=== PATIENT | female | born 1965 | race Caucasian/White ===

== ENCOUNTER 2016-10-14 16:49 | Inpatient (IN) | payer OTHER ==
[~2016-10-14] VITALS: Ht 170.2 cm; Wt 122.5 kg
[~2016-10-14 16:49] MED LIST: PREDNISONE50 MG PO; ZOFRAN4 M1 PO
--- NOTE | 2016-10-14 17:05 | ED GENERAL ADULT ---
History of Present Illness General Chief Complaint: Nausea, Vomiting, Diarrhea Stated Complaint: +N/V, HX OF DIABETES Source: patient Exam Limitations: poor historian Vital Signs & Intake/Output Vital Signs & Intake/Output Vital Signs Date Time Temp Pulse Resp B/P B/P Pulse O2 O2 Flow FiO2 Mean Ox Delivery Rate 10/14 1914 99.5 118 18 132/0 99 Room Air Room Air 10/14 1855 99.5 10/14 185 99.5 115 18 127/59 97 Room Air 10/14 1822 102.6 124 22 178/80 92 10/14 1700 104.8 130 22 188/98 92 10/14 1656 104.8 Allergies Coded Allergies: cephalexin (From KEFLEX) (THROAT CLOSES AND SWELLS 10/14/16) clindamycin (HIVES 10/14/16) Reconcile Medications Albuterol Sulfate (Proair Hfa) 90 MCG HFA.AER.AD 2 PUF INH Q6H PRN ASTHMA ( Reported) Amitriptyline HCl 75 MG TABLET 1 TAB PO QHS MIGRAINES (Reported) Budesonide/Formoterol Fumarate (Symbicort 80-4.5 Mcg Inhaler) 80 MCG-4.5 MCG/ ACTUATION HFA.AER.AD 2 PUF INH BID ASTHMA (Reported) Dulaglutide (Trulicity) 1.5 MG/0.5 ML PEN.INJCTR 1.5 MG SC QMON DM (Reported) Ergocalciferol (Vitamin D2) (Vitamin D2) 50,000 UNIT CAPSULE 1 CAP PO QWED SUPPLEMENT (Reported) Insulin Glargine,Hum.rec.anlog (Lantus Solostar) 100 UNIT/ML (3 ML) INSULN.PEN 60 UNITS SC QPM DM (Reported) Insulin Glargine,Hum.rec.anlog (Lantus Solostar) 100 UNIT/ML (3 ML) INSULN.PEN 50 U SC QAM DM (Reported) Insulin Lispro (Humalog Kwikpen U-100) 100 UNIT/ML INSULN.PEN DM (Reported) Metformin HCl 1,000 MG TABLET 1 TAB PO BID DM (Reported) Tramadol HCl 50 MG TABLET 1 TAB PO QPM PAIN (Reported) Triage Nurses Notes Reviewed? yes Onset: Abrupt Duration: day(s): Timing: recent history HPI: 10/14/16 5 pm 51-year-old female presents to the emergency department for 104 fever and altered mental status. According to the patient and her she was in her usual state of health until the past 48 hours. She thinks that she may have an infected urine. She was seen by Dr. Mancuso today and sent to the emergency department. She complains of epigastric abdominal pain and high fever. She denies headache cough or other complaints. The onset of the symptoms was abrupt , the duration was over the past 48 hours, the severity is significant as her symptoms required her to come to the emergency department for care. Past History Travel History Traveled to [place] past 21 day No Medical History Any Pertinent Medical History? see below for history Cardiovascular: hypertension, hyperlipidemia Respiratory: asthma Gastrointestinal: pancreatitis Endocrine: diabetes Surgical History Surgical History: cholecystectomy, Psychosocial History What is your primary language Swedish Family History Hx Contributory? No Review of Systems Review of Systems Constitutional: Reports: diaphoresis, fever, weakness. EENTM: Reports: no symptoms. Respiratory: Denies: cough. Cardiovascular: Denies: chest pain. GI: Reports: abdominal pain. Genitourinary: Reports: no symptoms. Musculoskeletal: Reports: no symptoms. Skin: Denies: rash. Neurological/Psychological: Denies: headache. Hematologic/Endocrine: Reports: no symptoms. Physical Exam Physical Exam General Appearance: awake, anxious, severe distress Head: atraumatic, normal appearance Eyes: Bilateral: normal appearance, PERRL, EOMI. Ears, Nose, Throat: normal pharynx, normal ENT inspection Neck: normal inspection, supple, full range of motion Respiratory: chest non-tender, no respiratory distress, wheezing Cardiovascular: tachycardia Peripheral Pulses: 4+ radial (R), 4+ radial (L) Gastrointestinal: soft, tenderness Back: decreased range of motion Extremities: normal capillary refill Neurologic/Psych: no motor/sensory deficits, awake, alert, oriented x 3 Skin: intact, normal color, diaphoresis Core Measures ACS in differential dx? No CVA/TIA Diagnosis: No Severe Sepsis Present: No Septic Shock Present: No Progress Differential Diagnoses I considered the following diagnoses in my evaluation of the patient: [Sepsis, hypothermia, pancreatitis, appendicitis, diverticulitis,] Plan of Care: Orders Procedure Date/time Status Heart Healthy Diet 10/15 B Active Patient Data 10/14 2104 Active ED Holding Orders 10/15 2039 Active Admit to inpatient 10/15 2039 Active Vital Signs 10/15 2039 Active Code Status 10/15 2039 Active LACTIC ACID 10/14 2008 Active MIXED VENOUS BLOOD GAS (GEN) 10/14 191 Active Intake & Output 10/14 185 Active Add-on Test (ER Only) 10/14 184 Active LIPASE 10/14 171 Complete AMYLASE 10/14 171 Complete CULTURE,URINE 10/14 170 Active BLOOD CULTURE 10/14 170 Active URINE DRUG SCREEN FOR ER ONLY 10/14 170 Complete URINALYSIS 10/14 170 Complete TROPONIN LEVEL 10/14 170 Complete LACTIC ACID 10/14 170 Complete COMPREHENSIVE METABOLIC PANEL 10/14 170 Complete CBC WITHOUT DIFFERENTIAL 10/14 1708 Complete ACETONE 10/14 170 Complete EKG 10/14 1704 Active FingerStick- Glucose 10/14 165 Active Current Medications Sig/Adam Start time Last Medication Dose Stop Time Status Admin Insulin Aspart 4 UNITS ONCE ONE 10/14 2114 UNVr (NovoLOG) 10/15 2115 Insulin Human Regular 10 UNITS ONCE ONE 10/14 2044 CAN (NovoLIN R) 10/14 2045 Sodium Chloride 1,000 ML BOLUS ONE 10/14 2044 AC (Normal Saline 0.9%) 10/15 2143 Sodium Chloride 1,000 ML BOLUS ONE 10/14 2044 AC (Normal Saline 0.9%) 10/15 2143 Sodium Chloride 1,000 ML ONCE ONE 10/14 1714 AC 10/14 (Normal Saline 0.9%) 10/14 2354 1748 Laboratory Tests 10/14/161: Lactic Acid Pending 10/14/16 1950: Urine Opiates Screen 1419.00, Methadone Screen 68, Barbiturate Screen < 60, Ur Phencyclidine Scrn < 6.00, Amphetamines Screen < 100, U Benzodiazepines Scrn < 85, Urine Cocaine Screen < 50, Urine Cannabis Screen < 5.00, Urine Color YEL, Urine Clarity HAZY H, Urine pH 6.0, Ur Specific [place] 1.020, Urine Protein 100 H, Urine Ketones NEG, Urine Nitrite POS H, Urine Bilirubin NEG, Urine Urobilinogen 0.2, Ur Leukocyte Esterase SMALL H, Ur Microscopic SEDIMENT EXAMINED, Urine RBC 1-3, Urine WBC > 75 H, Ur Epithelial Cells MOD H, Urine Bacteria MANY H, Urine Mucus RARE, Urine Hemoglobin MOD H, Urine Glucose >= 1000 H 10/14/16 1911: Bicarbonate Actual 20 L, Mixed VBG pH 7.42 H, Mixed VBG pCO2 32 L, Mixed VBG O2 Saturation 46 H, Carboxyhemoglobin 2.8, O2 Concentration % R/A, Phlebotomy Draw Site VENOUS 10/14/16 1716: Anion Gap 14, Estimated GFR > 60, BUN/Creatinine Ratio 25.7 H, Glucose 321 H, Lactic Acid 3.0 H, Calcium 10.2, Total Bilirubin 1.4 H, AST 27, ALT 51, Alkaline Phosphatase 105, Troponin I < 0.01, Total Protein 7.5, Albumin 4.2, Globulin 3.3, Albumin/Globulin Ratio 1.3, Amylase 36, Lipase 78, CBC w Diff NO MAN DIFF REQ, RBC 4.21, MCV 92.7, MCH 31.3 H, RDW 14.3, MPV 10.7 H, Gran % 91.7 H, Lymphocytes % 7.6 L, Monocytes % 0.5 L, Eosinophils % 0.1, Basophils % 0.1, Absolute Granulocytes 6.5, Absolute Lymphocytes 0.5 L, Absolute Monocytes 0 L, Absolute Eosinophils 0, Absolute Basophils 0, PUBS MCHC 33.8, Acetone Level NEGATIVE Microbiology 10/14 1949 URINE ROUT: Urine Culture - RECD 10/15 1719 BLOOD: Blood Culture - RECD 10/14 171 BLOOD: Blood Culture - RECD Initial ED EKG: sinus tachycardia Prior EKG: unchanged Departure Departure Disposition: STILL A PATIENT Condition: Stable Clinical Impression Primary Impression: Abdominal pain Secondary Impressions: Sepsis Referrals: VIVIANE CHAMORRO MD (PCP/Family) Departure Forms: Customer Survey General Discharge Information Comments 10/14/16 The patient was treated with IV fluids. She was placed on oxygen and a monitor. Ice packs were applied to her axilla. IV Tylenol and IV Toradol was given. IV morphine was given for pain. IV Avelox was ordered and she was pancultured. CT scan of the abdomen was ordered. Admission Note Spoke With: EDA RODRIGUEZ MD Documentation of Exam: Documentation of any treatments & extenuating circumstances including Concerns Regarding Discharge (functional status, medication knowledge or non-compliance, living conditions, etc.) that warrant an admission rather than observation: [The patient needs admission for IV antibiotics, IV fluids, repeat lactic acid level, ] ED Sepsis Exam Date of Focused Sepsis Exam: 10/14/16 Time of Focused Sepsis Exam: 2119 Sepsis Cardiac Exam: Regular Rate/Rhythm Sepsis Resp Exam: Ronchi Sepsis Cap Refill Exam: <2 Sec Sepsis Peripheral Pulse Exam: Normal Sepsis Peripheral Pulse Location: Radial Sepsis Skin Color Exam: Flushed Skin Temp/Moisture Exam: Hot/Diaphoretic Critical Care Note Critical Care Note Critical Care Time: 30-74 min
[2016-10-14 17:24] LABS: ABSOLUTE BASOPHIL COUNT 0 /CUMM (0.0-0.2); ABSOLUTE EOSINOPHIL COUNT 0 /CUMM (0.0-0.7); ABSOLUTE GRANULOCYTE CT 6.5 /CUMM (1.4-6.5); ABSOLUTE LYMPH COUNT 0.5 /CUMM (1.2-3.4); ABSOLUTE MONOCYTE COUNT 0 /CUMM (0.10-0.60); BASOPHIL % 0.1 % (0.0-2.0); EOSINOPHIL % 0.1 % (0-5); MEAN CORPUSCULAR HGB 31.3 PG (27.0-31.0); MEAN CORPUSCULAR HGB CONC 33.8 G/DL (33.0-37.0); MEAN CORPUSCULAR VOLUME 92.7 FL (81.0-99.0); MEAN PLATELET VOLUME 10.7 FL (7.4-10.4); PLATELET COUNT 125 /CUMM (130-400); RBC DISTRIBUTION WIDTH 14.3 % (11.5-14.5); RED BLOOD CELL CT 4.21 /CUMM (4.20-5.40); WHITE BLOOD CELL COUNT 7.1 /CUMM (4.8-10.8)
[2016-10-14 17:30] LABS: GRANULOCYTE % 91.7 % (42.2-75.2)
[2016-10-14] MEDS ORDERED: PROAIR HFA8.5 GM INH (17:59)
[2016-10-14] MEDS ORDERED: HUMALOG KW100 UNIT/1 SC (17:59)
[2016-10-14] MEDS ORDERED: TRULICITY1.5 MG/0.5 SC (17:59)
[2016-10-14] MEDS ORDERED: TRAMADOL HCL50 M1 PO (17:59)
[2016-10-14] MEDS ORDERED: LANTUS SOL100 UNIT/1 SC ×2 (18:00)
[2016-10-14] MEDS ORDERED: AMITRIPTYLINE H75 M2 PO (18:00)
[2016-10-14] MEDS ORDERED: SYMBICORT 80-10.2 GM INH (18:00)
[2016-10-14] MEDS ORDERED: VITAMIN D250000 UNIT PO (18:01)
[2016-10-14] MEDS ORDERED: METFORMIN HCL1000 M1 PO (18:01)
--- NOTE | 2016-10-14 18:20 | RADIOLOGY REPORT ---
EXAMINATION: XR PORTABLE CHEST CLINICAL INFORMATION: Fever. COMPARISON: None TECHNIQUE: Portable frontal view of the chest was obtained. 5:34 PM FINDINGS: No significant abnormality is noted involving the heart, lungs, mediastinum, bony thorax or soft tissues. IMPRESSION: No acute abnormality of chest.
--- NOTE | 2016-10-14 19:33 | CT SCAN REPORT ---
EXAMINATION: CT HEAD WITHOUT CONTRAST CLINICAL INFORMATION: Headache and hypertension. COMPARISON: None. TECHNIQUE: Contiguous axial imaging was performed from the skull base to vertex without intravenous administration of contrast. Images are degraded by artifact on some images. DLP: 614.27 mGy-cm FINDINGS: There is no evidence of acute intracranial hemorrhage or territorial infarction. No abnormal mass effect or midline shift is seen. Rios to white matter differentiation is well preserved. No extra-axial fluid collections are identified. The ventricles are normal in size. There are patchy areas of low attenuation in the periventricular and subcortical white matter which are most consistent with microvascular ischemic changes. The osseous structures and soft tissues are normal. There are sequelae of prior paranasal sinus surgery. There is a fluid level in the left maxillary sinus and there are small retention cysts in the maxillary sinuses bilaterally. IMPRESSION: 1. There are no acute bleeds or territorial infarcts. 2. There are changes consistent with chronic microvascular ischemic disease. 3. There are mild paranasal sinus changes, and there are sequelae of prior paranasal sinus surgery.
--- NOTE | 2016-10-14 20:01 | CT SCAN REPORT ---
EXAMINATION: CT ABDOMEN AND PELVIS WITHOUT CONTRAST CLINICAL INFORMATION: Abdominal pain COMPARISON: CT abdomen pelvis 10/11/2014 TECHNIQUE: Multidetector volumetric imaging was performed from the superior aspect of the liver through the pubic symphysis. Sagittal and coronal reformatted images were obtained on the technologist's workstation. DLP: 1416.14 mGy-cm FINDINGS: LUNG BASES: The visualized lung bases are unremarkable. LIVER, GALLBLADDER, AND BILIARY TREE: Diffuse low attenuation of liver parenchyma due to fatty change. There is mild hepatomegaly. Right lobe of liver measures 24 cm of length. No focal liver lesion. No intrahepatic bile duct dilatation Status post cholecystectomy. Surgical clips at gallbladder fossa. Extra hepatic CBD measures 7 mm in diameter. No calcified stone within the bile ducts. PANCREAS: Fatty atrophy of the pancreas. SPLEEN: Unremarkable. ADRENAL GLANDS: Unremarkable. KIDNEYS AND URETERS: There is edema in the perinephric fat around the left kidney and around the left ureter. This is asymmetric with the right kidney. There is no dilatation of the ureter. No renal or ureteral calculus. Etiology for the edema around the left kidney therefore indeterminate. Could consider pyelonephritis. Correlate with urinalysis. The right kidney and ureter are normal. BLADDER: Unremarkable. GASTROINTESTINAL TRACT: No acute change of the bowel. No bowel obstruction. No bowel wall thickening or edema. The appendix is normal. Small volume of scattered stool in the colon. ABDOMINAL WALL: No significant hernia is appreciated. LYMPH NODES: Normal. VASCULAR: Unremarkable. PELVIC VISCERA: Uterus is anteverted. No adnexal abnormality. OSSEOUS STRUCTURES: Endplate degenerative spurring of the thoracic and lumbar spine. Subchondral cystic changes of the acetabula bilaterally. IMPRESSION: Edema in the perinephric fat around the left kidney without hydronephrosis. No renal or ureteral calculus. Etiology for the edema around the kidney is not defined with this exam. Could consider an inflammatory infectious etiology, pyelonephritis. Correlate with urinalysis. In addition a postcontrast CAT scan of the abdomen and pelvis may be helpful.
--- NOTE | 2016-10-14 23:53 | History & Physical ---
SILVANO HENDRICKS 10/14/16 5882: General Information and HPI MD Statement: I have seen and personally examined RAOUL ERICKSON and documented this H&P. The patient is a 51 year old F who presented with a patient stated chief complaint of back ache x 24 hrs. Source of Information: patient Exam Limitations: no limitations History of Present Illness: Ms Erickson is a 51 yr old woman who was known to be in the usual state of health until one day ago. She has a past medical history of Type 2 DM ( uncontrolled), 50 pk yr smoking hisotry, HTN, HLD. She came in with a chief concern of left sided back pain x 1 day. As per the pt, she had left sided back pain, scale 10/10, no radiation, located in the left flank region, relieved upon taking anti-inflammatory meds. Also reported nausea, vomiting x 5 this am. Also assoicated w/ chills and rigors. Reported increased frequency, but no dysuria. No fever. No chest pain, shortness of breath, or palpitations. No pedal edema. Saw Dr Dickson (2001, but no diagnosis of COPD as per the pt). Also sees Dr. solorzano (flat bed operator). Allergies/Medications Allergies: Coded Allergies: cephalexin (From KEFLEX) (THROAT CLOSES AND SWELLS 10/14/16) clindamycin (HIVES 10/14/16) Home Med list Albuterol Sulfate (Proair Hfa) 90 MCG HFA.AER.AD 2 PUF INH Q6H PRN ASTHMA ( Reported) Amitriptyline HCl 75 MG TABLET 1 TAB PO QHS MIGRAINES (Reported) Budesonide/Formoterol Fumarate (Symbicort 80-4.5 Mcg Inhaler) 80 MCG-4.5 MCG/ ACTUATION HFA.AER.AD 2 PUF INH BID ASTHMA (Reported) Dulaglutide (Trulicity) 1.5 MG/0.5 ML PEN.INJCTR 1.5 MG SC QMON DM (Reported) Ergocalciferol (Vitamin D2) (Vitamin D2) 50,000 UNIT CAPSULE 1 CAP PO QWED SUPPLEMENT (Reported) Insulin Glargine,Hum.rec.anlog (Lantus Solostar) 100 UNIT/ML (3 ML) INSULN.PEN 60 UNITS SC QPM DM (Reported) Insulin Glargine,Hum.rec.anlog (Lantus Solostar) 100 UNIT/ML (3 ML) INSULN.PEN 50 U SC QAM DM (Reported) Insulin Lispro (Humalog Kwikpen U-100) 100 UNIT/ML INSULN.PEN DM (Reported) Metformin HCl 1,000 MG TABLET 1 TAB PO BID DM (Reported) Tramadol HCl 50 MG TABLET 1 TAB PO QPM PAIN (Reported) Past History Travel History Traveled to [place] past 21 day No Medical History Cardiovascular: hypertension, hyperlipidemia Respiratory: asthma Gastrointestinal: pancreatitis Endocrine: diabetes Surgical History Surgical History: cholecystectomy, Past Family/Social History Family History Relations & Conditions if any MOTHER (kidney disease). Psychosocial History Where do you live? Home Who Do You Live With? spouse Services at Home: None Primary Language: Pakistani Smoking Status: Current Everyday Smoker ETOH Use: denies use Functional Ability ADLs Independent: dressing, eating, toileting, bathing. Ambulation: independent, cane, walker IADLs Independent: shopping, housework, finances, food prep, telephone, transportation , medication admin. Review of Systems Review of Systems Constitutional: Reports: chills. Denies: diaphoresis, fever. EENTM: Denies: double vision. Cardiovascular: Denies: edema, orthopena, palpitations, peripheral edema, syncope. Respiratory: Denies: cough, hemoptysis, short of breath. GI: Denies: abdominal pain. Genitourinary: Reports: frequency. Musculoskeletal: Reports: back pain. Skin: Denies: cysts. Neurological/Psychological: Denies: anxiety, confusion. Hematologic/Endocrine: Denies: bruising, bleeding. Exam & Diagnostic Data Last 24 Hrs of Vital Signs/I&O Vital Signs Date Time Temp Pulse Resp B/P B/P Pulse O2 O2 Flow FiO2 Mean Ox Delivery Rate 10/15 0251 101.3 10/15 0242 96 Venti Mask 55% 10/15 0219 93 Venti Mask 55% 10/16 211 101.3 10/15 0148 101.3 10/144 100.4 99 16 102/50 95 Room Air 10/14 1915 99.5 118 18 132/0 99 Room Air Room Air 10/14 1855 99.5 10/14 1854 99.5 115 18 127/59 97 Room Air 10/14 1822 102.6 124 22 178/80 92 10/14 1700 104.8 130 22 188/98 92 10/14 1656 104.8 Intake & Output 10/15 0800 10/15 0000 10/14 1600 Intake Total 2000 Output Total Balance 1999 Intake, IV 1999 Physical Exam General Appearance Alert, Oriented X3, Cooperative, No Acute Distress Skin No Breakdown Skin Temp/Moisture Exam: Warm/Dry Sepsis Skin Exam (color): Normal for Ethnicity HEENT Atraumatic, PERRLA, EOMI, Mucous Membr. moist/pink Neck Supple, No JVD, No thryomegaly, +2 Carotid Pulse wo Bruit Lymphatic Axillary nl, Cervical nl Cardiovascular Regular Rate, Normal S1, Normal S2, No Murmurs Lungs Clear to Auscultation, Normal Air Movement Abdomen Normal Bowel Sounds, Soft, No Tenderness, Left costophrenic angle tenderness Neurological Normal Speech, Strength at 5/5 X4 Ext, Normal Tone, Sensation Intact, Cranial Nerves 3-12 NL, Reflexes 2+ Extremities No Clubbing, No Cyanosis, No Edema, Normal Pulses, No Tenderness/ Swelling, skin discoloration on the left lower limb Vascular Normal Pulses, Pulses Symmetrical Sepsis Peripheral Pulse Location: Dorsalis Pedis Sepsis Peripheral Pulse Exam: Normal Sepsis Cap Refill Exam: >2 sec Body Front and Back (Adult) 1) skin ulcer Last 24 Hrs of Labs/Scar: Laboratory Tests 10/15/16 0230: Troponin I 0.03, [id number] Pept 735 H 10/15/16 0200: pH 7.36, pCO2 35, pO2 67 L, HCO3 19 L, ABG O2 Sat (Measured) 88.0 L, P-50 ( Temp Corrected) Y, Carboxyhemoglobin 2.2, O2 Concentration % 55%, Temperature 101.3 H, O2 Delivery Method V/M, Phlebotomy Draw Site RIGHT RADIAL 10/15/16 0155: Troponin I Cancelled 10/14/16 2121: Lactic Acid Cancelled 10/14/16 2111: Lactic Acid 1.7 10/14/16 1950: Urine Opiates Screen 1419.00, Methadone Screen 68, Barbiturate Screen < 60, Ur Phencyclidine Scrn < 6.00, Amphetamines Screen < 100, U Benzodiazepines Scrn < 85, Urine Cocaine Screen < 50, Urine Cannabis Screen < 5.00, Urine Color YEL, Urine Clarity HAZY H, Urine pH 6.0, Ur Specific [place] 1.020, Urine Protein 100 H, Urine Ketones NEG, Urine Nitrite POS H, Urine Bilirubin NEG, Urine Urobilinogen 0.2, Ur Leukocyte Esterase SMALL H, Ur Microscopic SEDIMENT EXAMINED, Urine RBC 1-3, Urine WBC > 75 H, Ur Epithelial Cells MOD H, Urine Bacteria MANY H, Urine Mucus RARE, Urine Hemoglobin MOD H, Urine Glucose >= 1000 H 10/14/16 1911: Bicarbonate Actual 20 L, Mixed VBG pH 7.42 H, Mixed VBG pCO2 32 L, Mixed VBG O2 Saturation 46 H, Carboxyhemoglobin 2.8, O2 Concentration % R/A, Phlebotomy Draw Site VENOUS 10/14/16 171: Anion Gap 14, Estimated GFR > 60, BUN/Creatinine Ratio 25.7 H, Glucose 321 H, Hemoglobin A1c Pending, Lactic Acid 3.0 H, Calcium 10.2, Total Bilirubin 1.4 H , AST 27, ALT 51, Alkaline Phosphatase 105, Troponin I < 0.01, Total Protein 7.5 , Albumin 4.2, Globulin 3.3, Albumin/Globulin Ratio 1.3, Amylase 36, Lipase 78, CBC w Diff NO MAN DIFF REQ, RBC 4.21, MCV 92.7, MCH 31.3 H, RDW 14.3, MPV 10.7 H, Gran % 91.7 H, Lymphocytes % 7.6 L, Monocytes % 0.5 L, Eosinophils % 0.1, Basophils % 0.1, Absolute Granulocytes 6.5, Absolute Lymphocytes 0.5 L, Absolute Monocytes 0 L, Absolute Eosinophils 0, Absolute Basophils 0, PUBS MCHC 33.8, Acetone Level NEGATIVE Microbiology 10/14 1949 URINE ROUT: Urine Culture - RECD 10/15 1719 BLOOD: Blood Culture - RECD 10/14 171 BLOOD: Blood Culture - RECD Diagnostic Data EKG Results No EKG was done at the time of admission. CXR Results Did not reveal any acute abnormality. Other Results CT head-did not reveal any acute abnormality. Assessment/Plan Assessment: She is a middle-aged woman with a past history of uncontrolled diabetes, hypertension, active smoker and is being evaluated for sudden onset of left- sided lower back pain 1 day, associated with chills and rigors, vomiting. At the time of admission, vitals-temperature 104.8, pulse rate 130, respiratory rate 18, blood pressure 188/98 (dropped to SBP 102-118 consistently while the patient was in the ED), pulse ox-95% on room air. Lab findings revealed WBC 7.1 (91.7% granulocytes), low platelet count 125-likely due to ? Sepsis (baseline 175-231K), hemoglobin 13.2, electrolytes-sodium 135, potassium 4.9, bicarbonate 22, BUN 18 (slightly low), serum creatinine 0.7, blood glucose 321 (elevated). Lactic acid trended down to 3.0--> 1.7. Liver function tests-total bilirubin 1.4( slightly elevated), AST 27, ALT 51, alkaline phosphatase 105. Urinalysis revealed pyuria and glycosuria. Radiological findings-CT abdomen revealed perinephric stranding and edema around the kidney suggestive of pyelonephritis. CT head-negative for any acute pathology. Differential diagnosis: #1 pyelonephritis #2 perinephric abscess Below is the problem list and plan: #1 back pain-likely pyelonephritis. Intravenous moxifloxacin was administered in the ED. Change to intravenous ciprofloxacin to cover for GNR for pyelonephritis. The patient is allergic to Keflex, and reported perioral edema. CAT scan was done without IV contrast, which would limit evaluation of any perinephric abscess. Considering uncontrolled diabetes, polymicrobial infection is highly likely. Blood cultures revealed anaerobic gram-negative rods-likely Prevotella (in speculation). IV antibiotics-metronidazole was added to the regimen. Other sources of infection could not be found-oral cavity and vaginal. Sepsis of urologic origin-lactate trended down. Trend WBC count. #2 respiratory decompensation-likely because of tachycardia secondary to sepsis. Currently on 50% Ventimask. Continue to monitor closely, and transfer the patient to ICU. Repeat cxr revealed atelectesis vs pneumonia. Infection is unlikely. PE was considered in the differential, since the pt was tachycardic, but having two seperate etiologies such as pyelonephritis and PE(no other risk factor) is unlikely. #3 uncontrolled diabetes-check HbA1c. NovoLog sliding scale. Continue long- acting insulin. #4. Thrombocytopenia-likely because of sepsis. Continue to monitor closely. DIC in the differential. #5 DVT prophylaxis-heparin subcutaneous. Discontinue there is any decrease in platelet count. As Ranked By This Provider Problem List: 1. Sepsis 2. Abdominal pain Core Measures/Miscellaneous Acute Coronary Syndrome ACS Diagnosis: No Cerebrovascular Accident CVA/TIA Diagnosis: No Congestive Heart Failure CHF Diagnosis: No Venous Thromboembolism VTE Risk Factors: Acute medical illness, Age > 40 No [facility] [place] VTE prophylaxis d/t: No contraindications No VTE Pharm Prophylaxis d/t: No contraindications VTE Diagnosis: No VTE Type: NONE VTE Confirmed by (Test): NONE Severe Sepsis Severe Sepsis Present: No BC x2: Yes Lactic Acid x2: Yes IV ABX Broad Spectrum: Yes NS/LR Started: Yes Septic Shock Septic Shock Present: No Miscellaneous Documentation Attending Case Discussed With: EDA RODRIGUEZ MD Primary Care Physician: VIVIANE CHAMORRO MD Patient sees these Specialists Dr Solorzano Level of Patient Care: General Medicine NELLY HERNANDEZ MD,[facility] 10/15/16 0243: Resident Review Statement Resident Statement: examined this patient, discussed with help desk internship, agreed with help desk internship, reviewed EMR data (avail) Other Findings: 51-year-old female with past medical history significant for insulin-dependent diabetes mellitus, history of migraines, current smoker, ? diagnosis of COPD, obstructive sleep apnea on CPAP came to emergency department with chief complaint left flank pain, chills, shaking fever and vomiting. Patient took Advil without relief at midnight yesterday. She also noticed her urine was more cloudy today. Few days ago patient also noticed increased frequency of urination but denied any dysuria pain or urination burning with urination, chest pain diarrhea abdominal pain. Vitals in emergency department patient afebrile with a MAXIMUM TEMPERATURE of 104.8, tachycardia 120 to 130s, No tachypnea, systolic blood pressure ranging from 120 to 180s and diastolic 60 to 80s, oxygen saturation initially in emergency department 92% on room air. On examination patient was alert and oriented to time person place, and mild distress lying in the bed. Pertinent examination included positive renal punch on the left side, no abdominal tenderness, S1 and S2 audible without any murmurs , overall clear lungs with decreased air entry at the bases, grossly intact neurological examination. No leukocytosis, no anemia, mild hyponatremia, platelets of 125, and imaging showed Edema in the perinephric fat around the left kidney without hydronephrosis. No renal or ureteral calculus. Etiology for the edema around the kidney is not defined with this exam. Could consider an inflammatory infectious etiology, pyelonephritis. Patient received 4 L of normal saline in emergency department an IV moxifloxacin because patient is allergy to cephalosporins and gets angioedema from them. Patient was admitted on general medicine floor for the management of following problems Sepsis secondary to urinary tract infection Patient meets criteria for sepsis given her high temperature and heart rate of 100, along with suspected urinary tract infection. Patient received IV moxifloxacin along with 4 L of normal saline in emergency department. We will obtain urine culture and blood cultures to rule out bacteremia. We switched antibiotics to IV ciprofloxacin for better penetration. We will continue with IV fluids. We also have high degree of suspicion for renal abscess versus pyelonephritis if patient is not improved with IV antibiotics we will also consider urology consult. Patient's blood pressure came up to be positive for gram-negative rods in anaerobic bottles and therefore for broader coverage he also started Flagyl. Patient also had a rapid response as she got more short of breath. In order to evaluate for the cause of short of breath or chest x-ray, ABG, troponin and proBNP because patient was tachypneic and tachycardic. Patient did not significantly improve after respiratory treatment and after discussing with the attending decision was made to transfer the patient to ICU for better monitoring. Acute hypoxemic respiratory failure in the setting of COPD and SEDA Patient does not follow up with any marketing programs specialist on a regular basis for the treatment of COPD or SEDA. Patient had pulmonary function tests and saw Dr. Damon once in 2001. Our differentials for acute hypoxemic respiratory failure included possible volume overload versus ARDS versus low probability for PE. Will obtain pertinent labs and imaging and transfer the patient to the unit for close monitoring. Patient will need sleep study as an outpatient. History of diabetes mellitus on insulin Continue with Accu-Cheks, insulin sliding scale and long-acting insulin Patient is full code Patient is on pain pathway Patient is on heparin for DVT prophylaxis Patient is on diabetic diet EDA RODRIGUEZ 10/15/16 0357: Attending MD Review Statement Attending Statement Attending MD Statement: examined this patient, discuss w/resident/PA/[employer], agreed w/resident/PA/[employer], discussed with family, reviewed EMR data (avail), reviewed images, amended to note Attending Assessment/Plan: CC : Left flank pain, fever, vomiting PMH: DM, HLD, current smoker, asthma/COPD, S/P cholecystectomy Patient came to ER with fever, chills, left flank pain, vomiting 5 times. Patient states that fever and chills started yesterday along with left flank pain. Pain is nonradiating, not relieved by multiple pain medications over-the- counter. Today patient had 5 episodes of vomiting, nonbilious, nonbloody. Approximately 1 week back patient noticed increased frequency in urination for day with some tingly sensation but currently denies any such frequency, dysuria, burning in urination. Does not complain diarrhea, chest pain, abdominal pain, loss of consciousness, palpitations. According to family patient's diabetes is poorly controlled. Vitals: Tmax 104.8, HR 1:30, RR 22, blood pressure 178/80, saturating well on room air On exam: A O 3, cooperative, mild distress, neck supple, JVD normal, no lymphadenopathy, mucosa extremely dry, no focal neurological deficit, trace pedal edema, no obvious skin rashes or inflammation CVS: S1-S2, RRR. RS: Clear to auscultate bilaterally. Abdomen: Soft, NT, ND, bowel sounds present. Left- sided CVA tenderness present Labs: WBC 7.1, neutrophils 91%, sodium 135, bicarbonate 22, anion gap 18, BUN 18 , glucose 321, lactate 3.0, total bilirubin 1.4, AST 27, ALT 51 UA positive for nitrites and leukocyte esterase CT head and chest x-ray 1. There are no acute bleeds or territorial infarcts. 2. There are changes consistent with chronic microvascular ischemic disease. 3. There are mild paranasal sinus changes, and there are sequelae of prior paranasal sinus surgery. 4. No acute abnormality of chest. CT abdomen and pelvis without IV contrast Edema in the perinephric fat around the left kidney without hydronephrosis. No renal or ureteral calculus. Etiology for the edema around the kidney is not defined with this exam. Could consider an inflammatory infectious etiology, pyelonephritis. Correlate with urinalysis. In addition a postcontrast CAT scan of the abdomen and pelvis may be helpful. A and P 51-year-old female with past medical history significant for diabetes, asthma/ COPD, current smoker presented in ER for 1 day history of fever and chills and left flank pain. Patient had 5 episodes of vomiting today of note patient had one day history of increased frequency and tingly sensation in urine that was one week back. Patient had high-grade fever upon arrival, had obvious CVA tenderness on left side CT abdomen confirms the finding for pyelonephritis. Patient does not have significant leukocytosis but has left shift. Her lactic acid was 3, but she was hemodynamically stable throughout. UA positive for UTI. Patient was extremely dehydrated in ER and was resuscitated with 4 L normal saline and received moxifloxacin. + Left pyelonephritis + Sepsis + History of diabetes, asthma/COPD - Admit to general medicine - Continue IV hydration - Trend lactate - Urine culture, blood culture - Continue ciprofloxacin - Adequate pain control, when necessary Tylenol for fever - Repeat CBC, BMP, LFT in a.m. - Continue sliding scale insulin for diabetes - When necessary nebulization for asthma/COPD - DVT prophylaxis Note: After 3 AM in morning I received a page from lab that patient is growing gram-negative rods in one of the anaerobic bottles. Suggest to add Flagyl to Cipro. Also patient persistently spiking fever overnight. If worsening leukocytosis or persistent fever for 24 to 48-hour consider CT abdomen with IV contrast.
--- NOTE | 2016-10-15 02:37 | RADIOLOGY REPORT ---
EXAMINATION: XR PORTABLE CHEST CLINICAL INFORMATION: Acute hypoxic respiratory failure COMPARISON: 10/14/2016 TECHNIQUE: Portable frontal view of the chest was obtained. FINDINGS: Cardiac lead overlies the chest. The lungs are well expanded. Increased opacity at the right lung base. No pneumothorax. No edema. The cardiomediastinal silhouette is within normal limits. No acute osseous abnormality. IMPRESSION: Increased right basilar opacity may represent atelectasis or pneumonia.
--- NOTE | 2016-10-15 03:23 | Event Note ---
Event Note Event Note: Rapid response was called around 2 AM, when the pt was found to be acutely short of breath. She was febrile, T 101.3 and MS 130, BP 161/58, RR 25, O2 sat 89% RA- -> 93% (ventimask 50pc). On examination, she was found to be in acute distress. Lung sounds- rhonchi. No abnormal heart sounds. No JVD. Acute decompensation of respiratory status and could not be found. Since the patient was found to be tachycardic, and received over 4 L of fluid-possible volume overload state was considered. However radiological finding-chest x-ray did not reveal any increasing vascular congestion or any other findings suggestive of fluid overload. Cardiac enzyme-troponin I, proBNP negative. D- dimer was ordered, however low probability considering the admission for primary diagnosis of pyelonephritis to the hospital. Placed the patient on 50% Ventimask. Patient has a smoking history, and a formal diagnosis of COPD was never made. An acute decompensation, in this case is unclear.
--- NOTE | 2016-10-15 03:58 | Admission Certification ---
Admission Certification Certification Statement - As attending physician, I certify that at the time of - admission, based on clinical presentation, severity of - symptoms, need for further diagnostic testing and - therapeutic interventions, and risk of adverse outcomes - without in-hospital treatment, in my clinical assessment, - this patient requires an acute hospital stay for a minimum - of two nights or longer. I have also considered psychsocial - factors such as support system, advanced age, financial - issues, cognitive issues, and failed out-patient treatments, - past re-admission history, safety of patient, and lack of - compliance as applicable. Specific rationale supporting this admission is: Left-sided pyelonephritis
[2016-10-15 04:03] VITALS: BP 107/44
[2016-10-15 04:32] LABS: ABSOLUTE BASOPHIL COUNT 0 /CUMM (0.0-0.2); ABSOLUTE EOSINOPHIL COUNT 0 /CUMM (0.0-0.7); ABSOLUTE GRANULOCYTE CT 10.6 /CUMM (1.4-6.5); ABSOLUTE LYMPH COUNT 0.5 /CUMM (1.2-3.4); ABSOLUTE MONOCYTE COUNT 0.4 /CUMM (0.10-0.60); BASOPHIL % 0.2 % (0.0-2.0); EOSINOPHIL % 0.2 % (0-5); GRANULOCYTE % 91.7 % (42.2-75.2); MEAN CORPUSCULAR HGB 31.3 PG (27.0-31.0); MEAN CORPUSCULAR HGB CONC 33.8 G/DL (33.0-37.0); MEAN CORPUSCULAR VOLUME 92.4 FL (81.0-99.0); MEAN PLATELET VOLUME 10.7 FL (7.4-10.4); PLATELET COUNT 124 /CUMM (130-400); RBC DISTRIBUTION WIDTH 14.2 % (11.5-14.5)
[2016-10-15 04:36] LABS: HEMATOCRIT 33.3 % (37-47); WHITE BLOOD CELL COUNT 11.5 /CUMM (4.8-10.8)
--- NOTE | 2016-10-15 07:10 | Cons- CRCU ---
VALENTIN VALENZUELA,[facility] 10/15/16 0709: General Information and HPI Consulting Request Date of Consult: 10/15/16 Requested By: Medical team History of Present Illness: Ms Erickson is 51 year old female with past medical history significant for type 2 DM (uncontrolled), 50 pk yr smoking hisotry, HTN, HLD presented with chief complaint of left sided back pain x 1 day. Patient reported left sided back pain, scale 10/10, no radiation, located in the left flank region, relieved upon taking anti-inflammatory meds associated with nausea, vomiting x 5 this am. Also assoicated w/ chills and rigors. Reported increased frequency, but no dysuria. No fever. No chest pain, shortness of breath, or palpitations. No pedal edema. Patient was initially admitted to general medical floor, transferred to ICU after she had acute respiratory distress. Today 10/15, patient was seen and examined, lying in bed, in mild acute distress, reported being fatigued, denied chest pain, palpitation. Allergies/Medications Allergies: Coded Allergies: cephalexin (From KEFLEX) (THROAT CLOSES AND SWELLS 10/14/16) clindamycin (HIVES 10/14/16) Home Med List: Albuterol Sulfate (Proair Hfa) 90 MCG HFA.AER.AD 2 PUF INH Q6H PRN ASTHMA ( Reported) Amitriptyline HCl 75 MG TABLET 1 TAB PO QHS MIGRAINES (Reported) Budesonide/Formoterol Fumarate (Symbicort 80-4.5 Mcg Inhaler) 80 MCG-4.5 MCG/ ACTUATION HFA.AER.AD 2 PUF INH BID ASTHMA (Reported) Dulaglutide (Trulicity) 1.5 MG/0.5 ML PEN.INJCTR 1.5 MG SC QMON DM (Reported) Ergocalciferol (Vitamin D2) (Vitamin D2) 50,000 UNIT CAPSULE 1 CAP PO QWED SUPPLEMENT (Reported) Insulin Glargine,Hum.rec.anlog (Lantus Solostar) 100 UNIT/ML (3 ML) INSULN.PEN 60 UNITS SC QPM DM (Reported) Insulin Glargine,Hum.rec.anlog (Lantus Solostar) 100 UNIT/ML (3 ML) INSULN.PEN 50 U SC QAM DM (Reported) Insulin Lispro (Humalog Kwikpen U-100) 100 UNIT/ML INSULN.PEN DM (Reported) Metformin HCl 1,000 MG TABLET 1 TAB PO BID DM (Reported) Tramadol HCl 50 MG TABLET 1 TAB PO QPM PAIN (Reported) Review of Systems Review of Systems Constitutional: Denies: chills, fever. EENTM: Denies: blurred vision. Cardiovascular: Denies: chest pain, palpitations. Respiratory: Reports: cough, short of breath. GI: Denies: abdominal pain, diarrhea. Genitourinary: Denies: discharge, dysuria. Musculoskeletal: Denies: back pain, joint pain. 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 Psychosocial History Where Do You Live? Home Who Do You Live With? spouse Services at Home: None Primary Language: Tuvaluan Smoking Status: Current Everyday Smoker ETOH Use: denies use Functional Ability ADLs Independent: dressing, eating, toileting, bathing. Ambulation: independent, cane, walker IADLs Independent: shopping, housework, finances, food prep, telephone, transportation , medication admin. Exam & Diagnostic Data Last 24 Hrs of Vital Signs/I&O Vital Signs Date Time Temp Pulse Resp B/P B/P Pulse O2 O2 Flow FiO2 Mean Ox Delivery Rate 10/15 1600 97 Nasal 4.0L Cannula 10/15 1600 98.0 94 18 110/60 96 Nasal 4.0L Cannula 10/15 1428 Nasal 4.0L Cannula 10/15 1200 92 Nasal 6.0L Cannula 10/15 0913 103 10/15 0800 94 Venti Mask 55% 10/15 0800 98.3 108 20 128/54 97 Venti Mask 55% 10/15 0442 94 Venti Mask 10/15 0403 98.8 109 20 107/44 97 Venti Mask 10/15 0251 101.3 10/15 0242 96 Venti Mask 55% 10/15 0219 93 Venti Mask 55% 10/15 0212 101.3 10/15 0148 101.3 10/144 100.4 99 16 102/50 95 Room Air 10/14 1915 99.5 118 18 132/0 99 Room Air Room Air 10/14 1855 99.5 10/14 185 99.5 115 18 127/59 97 Room Air 10/14 1822 102.6 124 22 178/80 92 Intake & Output 10/15 1600 10/15 0800 10/15 0000 Intake Total 7785 807 1825 Output Total 400 400 Balance 2839 441 5286 Intake, IV 4093 898 7836 Intake, Oral 400 320 Output, Urine 400 400 Patient 122.47 kg Weight Weight Reported by Patient Measurement Method Physical Exam General Appearance: alert, moderate distress Head: atraumatic, normal appearance Eyes: Bilateral: normal appearance, PERRL, EOMI. Ears, Nose, Throat: normal pharynx, normal ENT inspection Neck: normal inspection, supple, full range of motion Respiratory: decreased breath sounds, wheezing Cardiovascular: regular rate/rhythm Gastrointestinal: normal bowel sounds, soft, non-tender Extremities: normal inspection, normal capillary refill, normal range of motion, no edema Last 48 Hrs of Labs/Scar: Laboratory Tests 10/15/16 1205: pH 7.39, pCO2 36, pO2 88, HCO3 21, ABG O2 Sat (Measured) 96.0, P-50 (Temp Corrected) N, Carboxyhemoglobin 0.4 L, O2 Concentration % 5LPM, O2 Delivery Method NC, Phlebotomy Draw Site RIGHT RADIAL 10/15/16 1101: Anion Gap 8, Estimated GFR > 60, Glucose 214 H, Calcium 8.7, Phosphorus 2.9, Magnesium 1.3 L, Total Bilirubin 0.9, AST 28, ALT 49, Albumin 3.0 L, PT 13.9 H, INR 1.33 H, CBC w Diff NO MAN DIFF REQ, RBC 3.47 L, MCV 92.8, MCH 31.0, RDW 14.6 H, MPV 11.1 H, Gran % 90.1 H, Lymphocytes % 5.9 L, Monocytes % 3.6, Eosinophils % 0.2, Basophils % 0.2, Absolute Granulocytes 10.7 H, Absolute Lymphocytes 0.7 L, Absolute Monocytes 0.4, Absolute Eosinophils 0, Absolute Basophils 0, PUBS MCHC 33.4 10/15/16 0530: Lactic Acid 1.3 10/15/16 0425: pH 7.30 *L, pCO2 45, pO2 99, HCO3 22, ABG O2 Sat (Measured) 96.0, P-50 (Temp Corrected) Y, Carboxyhemoglobin 0.6 L, O2 Concentration % 55%, Temperature 98.8 , O2 Delivery Method V/M, Phlebotomy Draw Site RIGHT RADIAL 10/15/16 0410: Anion Gap 9, Estimated GFR > 60, BUN/Creatinine Ratio 27.1 H, D-Dimer High Sensitivty 705 H, CBC w Diff MAN DIFF ORDERED, RBC 3.60 L, MCV 92.4, MCH 31.3 H, RDW 14.2, MPV 10.7 H, Gran % 91.7 H, Lymphocytes % 4.2 L, Monocytes % 3.7, Eosinophils % 0.2, Basophils % 0.2, Absolute Granulocytes 10.6 H, Segmented Neutrophils 88 H, Band Neutrophils 6 H, Absolute Lymphocytes 0.5 L, Lymphocytes 4 L, Monocytes 2, Absolute Monocytes 0.4, Absolute Eosinophils 0, Absolute Basophils 0, Platelet Estimate ADEQUATE, Polychromasia 1+, Ovalocytes FEW, PUBS MCHC 33.8, Fld Total RBCs Counted 100 10/15/16 0230: Troponin I 0.03, Zun-X-Asqaznwcskz Pept 735 H 10/15/16 0200: pH 7.36, pCO2 35, pO2 67 L, HCO3 19 L, ABG O2 Sat (Measured) 88.0 L, P-50 ( Temp Corrected) Y, Carboxyhemoglobin 2.2, O2 Concentration % 55%, Temperature 101.3 H, O2 Delivery Method V/M, Phlebotomy Draw Site RIGHT RADIAL 10/15/16 0155: Troponin I Cancelled 10/14/16 2121: Lactic Acid Cancelled 10/14/16 2111: Lactic Acid 1.7 10/14/16 1950: Urine Opiates Screen 1419.00, Methadone Screen 68, Barbiturate Screen < 60, Ur Phencyclidine Scrn < 6.00, Amphetamines Screen < 100, U Benzodiazepines Scrn < 85, Urine Cocaine Screen < 50, Urine Cannabis Screen < 5.00, Urine Color YEL, Urine Clarity HAZY H, Urine pH 6.0, Ur Specific [place] 1.020, Urine Protein 100 H, Urine Ketones NEG, Urine Nitrite POS H, Urine Bilirubin NEG, Urine Urobilinogen 0.2, Ur Leukocyte Esterase SMALL H, Ur Microscopic SEDIMENT EXAMINED, Urine RBC 1-3, Urine WBC > 75 H, Ur Epithelial Cells MOD H, Urine Bacteria MANY H, Urine Mucus RARE, Urine Hemoglobin MOD H, Urine Glucose >= 1000 H 10/14/16 1911: Bicarbonate Actual 20 L, Mixed VBG pH 7.42 H, Mixed VBG pCO2 32 L, Mixed VBG O2 Saturation 46 H, Carboxyhemoglobin 2.8, O2 Concentration % R/A, Phlebotomy Draw Site VENOUS 10/14/16 1716: Anion Gap 14, Estimated GFR > 60, BUN/Creatinine Ratio 25.7 H, Glucose 321 H, Hemoglobin A1c 9.2 H, Lactic Acid 3.0 H, Calcium 10.2, Total Bilirubin 1.4 H, AST 27, ALT 51, Alkaline Phosphatase 105, Troponin I < 0.01, Total Protein 7.5, Albumin 4.2, Globulin 3.3, Albumin/Globulin Ratio 1.3, Amylase 36, Lipase 78, CBC w Diff NO MAN DIFF REQ, RBC 4.21, MCV 92.7, MCH 31.3 H, RDW 14.3, MPV 10.7 H, Gran % 91.7 H, Lymphocytes % 7.6 L, Monocytes % 0.5 L, Eosinophils % 0.1, Basophils % 0.1, Absolute Granulocytes 6.5, Absolute Lymphocytes 0.5 L, Absolute Monocytes 0 L, Absolute Eosinophils 0, Absolute Basophils 0, PUBS MCHC 33.8, Acetone Level NEGATIVE Microbiology 10/15 1500 URINE ROUT: Legionella Antigen - COMP 10/15 1500 URINE ROUT: Streptococcus pneumoniae Antigen (M - COMP Assessment/Plan Impression/Plan: Ms Erickson is 51 year old female with past medical history significant for type 2 DM (uncontrolled), 50 pk yr smoking hisotry, HTN, HLD presented with chief complaint of left sided back pain x 1 day. Problem list #Left pyelonephritis #Sepsis #History of diabetes #Acute hypoxemic respiratory failure, likely secondary to aspiration pneumonia versus pneumonitis #COPD #SEDA on chronic CPAP #Hypertension and hyperlipidemia Plan #ID -Urine and blood culture positive for gram-negative rods -ID consultation was obtained, thanks for consultation -Continue ciprofloxacin 500 mg by mouth every 12 -Discontinue Flagyl -If patient deteriorates would add Gentamicin 180 mg loading dose followed by 100 mg IV every 8 hours -Follow culture sensitivity -Monitor vitals and CBC -CT scan abdomen and pelvis IMPRESSION: Edema in the perinephric fat around the left kidney without hydronephrosis. No renal or ureteral calculus. Etiology for the edema around the kidney is not defined with this exam. Could consider an inflammatory infectious etiology, pyelonephritis. Correlate with urinalysis. In addition a postcontrast CAT scan of the abdomen and pelvis may be helpful. Respiratory -Acute hypoxic respiratory failure, possible aspiration pneumonia -Start BiPAP 12/4, RR of 14 and obtain ABG after 1 hour -Aspiration precautions -Oxygen maintain saturations greater than 92%. -TRC and nebs -Avoid narcotics -Replete electroytes GI -IV Zofran for any nausea or evidence of vomiting Metabolic -Poor controlled DM -Endocrine consultation was obtained -Levemir 40 units twice a day -NovoLog sliding scale Neurology -Continue amitriptyline at bedtime 75 mg DVT prophylaxis heparin subcutaneous Code full Diet CC3 Consultation ID, endocrine Consult Acknowledgment - Thank you for your consult request. TOBY VALENZUELA,[facility] 10/15/16 0758: Assessment/Plan Other Findings/Comments: I have personally seen and examined the patient and agree with the assessment and plan as detailed above. Briefly, the patient is a 51-year-old female with a history of uncontrolled diabetes, obstructive lung disease, ongoing tobacco use disorder (50 pack years of smoking), SEDA on CPAP, hypertension, and hyperlipidemia. The patient came in with a one-day complaint of left-sided back pain. The patient also had nausea with 5 episodes of vomiting, associated with fever and chills. The patient underwent a workup which included a urinalysis which was positive for UTI. A CT scan of the abdomen and pelvis. This study demonstrated edema and the perinephric fat around the left kidney without hydronephrosis. Admission chest x-ray showed no acute abnormality. The patient had normal renal function on admission. She was admitted to the general medical floor for further treatment. After being pancultured, the patient was treated with ceftriaxone and Flagyl. Her blood cultures are currently positive for gram -negative rods. Overnight, the patient has been febrile. On the floor, the patient was noted to be acutely hypoxemic requiring 100% nonrebreather. The patient was transferred to the critical care unit for closer monitoring. She had an arterial blood gas that demonstrated a pH of 7.30, PCO2 45, PO2 99, and a bicarbonate of 22. A chest x-ray demonstrated a new right basilar opacity consistent with aspiration. At present, the patient is drowsy and on a Ventimask. She feels she wants to sleep but is unable to due to the current mask. She reports her pain is much better controlled. She currently has no nausea or vomiting. She states she would feel better wearing CPAP/BiPAP at present. IMPRESSION: 1. Acute hypoxemic respiratory failure, likely secondary to aspiration pneumonia versus pneumonitis. 2. Worsening hypercarbia, likely related to sedation in the setting of a patient with SEDA/obesity hypoventilation syndrome. 3. COPD with a 11-qmib-ilis history of smoking. 4. Uncontrolled diabetes. 5. Hypertension/hyperlipidemia. 6. SEDA, on chronic CPAP. PLAN: * Change to BiPAP /, RR of 14. * Check an ABG later today on BiPAP. * Give breaks off BiPAP as tolerated. * Careful aspiration precautions if the patient has any evidence of vomiting. * Continue to titrate the patient's oxygen down to maintain saturations greater than 92%. * Nebulizer treatments every 4 while awake. * Continue Symbicort 2 puffs every 12 hours. * Check labs every 12 hours today, and coags onto next set of labs. * Attempt to avoid sedating medications. Treat pain with nonnarcotic agents if able. * Continue ceftriaxone and Flagyl. * Please request an ID consult for further recommendations. * Endocrine consult placed, we will follow up recommendations. * IV Zofran for any nausea or evidence of vomiting. * DT prophylaxis at all times, monitor platelet levels. * The patient has potential to become critically ill, continue to monitor in the ICU. Consult Acknowledgment - Thank you for your consult request.
[2016-10-15 08:00] VITALS: BP 128/54
--- NOTE | 2016-10-15 09:46 | Cons- Endocrinology ---
General Information and HPI Consulting Request Date of Consult: 10/15/16 Requested By: ICU team Reason for Consult: management of DM type 2 Source of Information: patient, old records Exam Limitations: no limitations History of Present Illness: Ms Erickson is a 51 yr old woman who has past medical history of uncontrolled DMn type 2, asthma, smoking hisotry, HTN, HLD and overweight. She came in with a chief concern of left sided back pain x one day. Her peak temperature was 104.8. She was admitted for acute pyelonephritis. However, patient vomited multiple times and had an episode of breathing difficulty and then she was transfered to ICU. She was put on Levemir 50 units am and 60 units at bedtime, Novolog coverage before meals and Novolog coverage at bedtime. Her FSGs [id number], [id number], 219, 206 and 199. Allergies/Medications Allergies: Coded Allergies: cephalexin (From KEFLEX) (THROAT CLOSES AND SWELLS 10/14/16) clindamycin (HIVES 10/14/16) Home Med List: Albuterol Sulfate (Proair Hfa) 90 MCG HFA.AER.AD 2 PUF INH Q6H PRN ASTHMA ( Reported) Amitriptyline HCl 75 MG TABLET 1 TAB PO QHS MIGRAINES (Reported) Budesonide/Formoterol Fumarate (Symbicort 80-4.5 Mcg Inhaler) 80 MCG-4.5 MCG/ ACTUATION HFA.AER.AD 2 PUF INH BID ASTHMA (Reported) Dulaglutide (Trulicity) 1.5 MG/0.5 ML PEN.INJCTR 1.5 MG SC QMON DM (Reported) Ergocalciferol (Vitamin D2) (Vitamin D2) 50,000 UNIT CAPSULE 1 CAP PO QWED SUPPLEMENT (Reported) Insulin Glargine,Hum.rec.anlog (Lantus Solostar) 100 UNIT/ML (3 ML) INSULN.PEN 60 UNITS SC QPM DM (Reported) Insulin Glargine,Hum.rec.anlog (Lantus Solostar) 100 UNIT/ML (3 ML) INSULN.PEN 50 U SC QAM DM (Reported) Insulin Lispro (Humalog Kwikpen U-100) 100 UNIT/ML INSULN.PEN DM (Reported) Metformin HCl 1,000 MG TABLET 1 TAB PO BID DM (Reported) Tramadol HCl 50 MG TABLET 1 TAB PO QPM PAIN (Reported) Review of Systems Review of Systems Constitutional: Reports: see HPI, fever. Cardiovascular: Denies: chest pain. Respiratory: Reports: short of breath. GI: Reports: vomiting. Genitourinary: Reports: pain (left back). Hematologic/Endocrine: Denies: polyuria, polydipsia. 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 Psychosocial History Where Do You Live? Home Who Do You Live With? spouse Services at Home: None Primary Language: Yi Smoking Status: Current Everyday Smoker ETOH Use: denies use Functional Ability ADLs Independent: dressing, eating, toileting, bathing. Ambulation: independent, cane, walker IADLs Independent: shopping, housework, finances, food prep, telephone, transportation , medication admin. Exam & Diagnostic Data Last 24 Hrs of Vital Signs/I&O Vital Signs Date Time Temp Pulse Resp B/P B/P Pulse O2 O2 Flow FiO2 Mean Ox Delivery Rate 10/15 0913 103 06/ 0800 94 Venti Mask 55% 10/15 0800 98.3 108 20 128/54 97 Venti Mask 55% 10/15 0442 94 Venti Mask 10/15 0403 98.8 109 20 107/44 97 Venti Mask 10/15 0251 101.3 10/15 0242 96 Venti Mask 55% 10/15 0219 93 Venti Mask 55% 10/15 0212 101.3 / 0148 101.3 10/14 2124 100.4 99 16 102/50 95 Room Air 10/14 1915 99.5 118 18 132/0 99 Room Air Room Air 10/14 1855 99.5 10/14 1855 99.5 115 18 127/59 97 Room Air 10/14 1822 102.6 124 22 178/80 92 10/14 1700 104.8 130 22 188/98 92 10/14 1656 104.8 Intake & Output 10/15 1600 10/15 0800 10/15 0000 Intake Total 720 2000 Output Total 400 Balance 320 2000 Intake, IV 400 2000 Intake, Oral 320 Output, Urine 400 Patient 270 lb Weight Weight Reported by Patient Measurement Method Labs/Scar Results: Laboratory Tests 10/15 10/15 10/15 0530 0425 0410 Blood Gas pH (7.35 - 7.45 PH) 7.30 *L pCO2 (35 - 45 TORR) 45 pO2 (80 - 100 TORR) 99 HCO3 (21 - 28 MEQ/L) 22 ABG O2 Sat (Measured) (>96.0 %) 96.0 P-50 (Temp Corrected) Y Carboxyhemoglobin (1.5 - 5.0 %) 0.6 L O2 Concentration % 55% Temperature (97.0 - 100.0 FARH) 98.8 O2 Delivery Method V/M Chemistry Sodium (137 - 145 mmol/L) 136 L Potassium (3.5 - 5.1 mmol/L) 3.7 Chloride (98 - 107 mmol/L) 107 Carbon Dioxide (22 - 30 mmol/L) 20 L Anion Gap (5 - 16) 9 BUN (7 - 17 mg/dL) 19 H Creatinine (0.5 - 1.0 mg/dL) 0.7 Estimated GFR (>60 ml/min) > 60 BUN/Creatinine Ratio (7 - 25 %) 27.1 H Lactic Acid (0.7 - 2.1 mmol/L) 1.3 Coagulation D-Dimer High Sensitivty (0 - 243 ng/ml) 705 H Hematology CBC w Diff MAN DIFF ORDERED WBC (4.8 - 10.8 /CUMM) 11.5 H RBC (4.20 - 5.40 /CUMM) 3.60 L Hgb (12.0 - 16.0 G/DL) 11.3 L Hct (37 - 47 %) 33.3 L MCV (81.0 - 99.0 FL) 92.4 MCH (27.0 - 31.0 PG) 31.3 H RDW (11.5 - 14.5 %) 14.2 Plt Count (130 - 400 /CUMM) 124 L MPV (7.4 - 10.4 FL) 10.7 H Gran % (42.2 - 75.2 %) 91.7 H Lymphocytes % (20.5 - 51.1 %) 4.2 L Monocytes % (1.7 - 9.3 %) 3.7 Eosinophils % (0 - 5 %) 0.2 Basophils % (0.0 - 2.0 %) 0.2 Absolute Granulocytes (1.4 - 6.5 /CUMM) 10.6 H Segmented Neutrophils (42.2 - 75.2 %) 88 H Band Neutrophils (0.0 - 5.0 %) 6 H Absolute Lymphocytes (1.2 - 3.4 /CUMM) 0.5 L Lymphocytes (20.5 - 51.1 %) 4 L Monocytes (1.7 - 9.3 %) 2 Absolute Monocytes (0.10 - 0.60 /CUMM) 0.4 Absolute Eosinophils (0.0 - 0.7 /CUMM) 0 Absolute Basophils (0.0 - 0.2 /CUMM) 0 Platelet Estimate (ADEQUATE) ADEQUATE Polychromasia 1+ Ovalocytes FEW PUBS MCHC (33.0 - 37.0 G/DL) 33.8 Miscellaneous Phlebotomy Draw Site RIGHT RADIAL Other Body Source Fld Total RBCs Counted (%) 100 10/15 10/15 10/15 10/14 0230 0200 0155 2121 Blood Gas pH (7.35 - 7.45 PH) 7.36 pCO2 (35 - 45 TORR) 35 pO2 (80 - 100 TORR) 67 L HCO3 (21 - 28 MEQ/L) 19 L ABG O2 Sat (Measured) (>96.0 %) 88.0 L P-50 (Temp Corrected) Y Carboxyhemoglobin (1.5 - 5.0 %) 2.2 O2 Concentration % 55% Temperature (97.0 - 100.0 FARH) 101.3 H O2 Delivery Method V/M Chemistry Lactic Acid Cancelled Troponin I (< 0.11 ng/ml) 0.03 Cancelled Kfm-F-Ujmtolorvsh Pept (<125 pg/mL) 735 H Miscellaneous Phlebotomy Draw Site RIGHT RADIAL 10/14 1950 191 Blood Gas Bicarbonate Actual (22 - 26 MEQ/L) 20 L Mixed VBG pH (7.31 - 7.41 PH) 7.42 H Mixed VBG pCO2 (41 - 51 TORR) 32 L Mixed VBG O2 Saturation (35 - 45 TORR) 46 H Carboxyhemoglobin (1.5 - 5.0 %) 2.8 O2 Concentration % R/A Chemistry Lactic Acid (0.7 - 2.1 mmol/L) 1.7 Miscellaneous Phlebotomy Draw Site VENOUS Toxicology Urine Opiates Screen (>2000 NG/ML) 1419.00 Methadone Screen (>300 NG/ML) 68 Barbiturate Screen (>200 NG/ML) < 60 Ur Phencyclidine Scrn (>25 NG/ML) < 6.00 Amphetamines Screen (>1000 NG/ML) < 100 U Benzodiazepines Scrn (>200 NG/ML) < 85 Urine Cocaine Screen (>300 NG/ML) < 50 Urine Cannabis Screen (>50 NG/ML) < 5.00 Urines Urine Color (YEL,AMB,STR) YEL Urine Clarity (CLEAR) HAZY H Urine pH (5.0 - 8.0) 6.0 Ur Specific [place] (1.001 - 1.035) 1.020 Urine Protein (NEG,<30 MG/DL) 100 H Urine Ketones (NEG) NEG Urine Nitrite (NEG) POS H Urine Bilirubin (NEG) NEG Urine Urobilinogen (0.1 - 1.0 EU/dl) 0.2 Ur Leukocyte Esterase (NEG) SMALL H Ur Microscopic SEDIMENT EXAMINED Urine RBC (0 - 5 /HPF) 1-3 Urine WBC (0 - 2 /HPF) > 75 H Ur Epithelial Cells (NONE,FEW) MOD H Urine Bacteria (NEG/NONE) MANY H Urine Mucus (FEW,NONE) RARE Urine Hemoglobin (NEG) MOD H Urine Glucose (N MG/DL) >=1000 H / 1716 Chemistry Sodium (137 - 145 mmol/L) 135 L Potassium (3.5 - 5.1 mmol/L) 4.9 Chloride (98 - 107 mmol/L) 99 Carbon Dioxide (22 - 30 mmol/L) 22 Anion Gap (5 - 16) 14 BUN (7 - 17 mg/dL) 18 H Creatinine (0.5 - 1.0 mg/dL) 0.7 Estimated GFR (>60 ml/min) > 60 BUN/Creatinine Ratio (7 - 25 %) 25.7 H Glucose (65 - 99 mg/dL) 321 H Hemoglobin A1c (4.2 - 5.8 %) 9.2 H Lactic Acid (0.7 - 2.1 mmol/L) 3.0 H Calcium (8.4 - 10.2 mg/dL) 10.2 Total Bilirubin (0.2 - 1.3 mg/dL) 1.4 H AST (14 - 36 U/L) 27 ALT (9 - 52 U/L) 51 Alkaline Phosphatase (<127 U/L) 105 Troponin I (< 0.11 ng/ml) < 0.01 Total Protein (6.3 - 8.2 g/dL) 7.5 Albumin (3.5 - 5.0 g/dL) 4.2 Globulin (1.9 - 4.2 gm/dL) 3.3 Albumin/Globulin Ratio (1.1 - 2.2 %) 1.3 Amylase (30 - 110 U/L) 36 Lipase (23 - 300 U/L) 78 Hematology CBC w Diff NO MAN DIFF REQ WBC (4.8 - 10.8 /CUMM) 7.1 RBC (4.20 - 5.40 /CUMM) 4.21 Hgb (12.0 - 16.0 G/DL) 13.2 Hct (37 - 47 %) 39.0 MCV (81.0 - 99.0 FL) 92.7 MCH (27.0 - 31.0 PG) 31.3 H RDW (11.5 - 14.5 %) 14.3 Plt Count (130 - 400 /CUMM) 125 L MPV (7.4 - 10.4 FL) 10.7 H Gran % (42.2 - 75.2 %) 91.7 H Lymphocytes % (20.5 - 51.1 %) 7.6 L Monocytes % (1.7 - 9.3 %) 0.5 L Eosinophils % (0 - 5 %) 0.1 Basophils % (0.0 - 2.0 %) 0.1 Absolute Granulocytes (1.4 - 6.5 /CUMM) 6.5 Absolute Lymphocytes (1.2 - 3.4 /CUMM) 0.5 L Absolute Monocytes (0.10 - 0.60 /CUMM) 0 L Absolute Eosinophils (0.0 - 0.7 /CUMM) 0 Absolute Basophils (0.0 - 0.2 /CUMM) 0 PUBS MCHC (33.0 - 37.0 G/DL) 33.8 Toxicology Acetone Level (NEGATIVE) NEGATIVE Assessment/Plan Assessment/Plan Ms Erickson is a 51 yr old woman who has past medical history of uncontrolled DMn type 2, asthma, smoking hisotry, HTN, HLD and overweight. She came in with a chief concern of left sided back pain x one day. Her peak temperature was 104.8. She was admitted for acute pyelonephritis. However, patient vomited multiple times and had an episode of breathing difficulty and then she was transfered to ICU. DM management: 1. decrease Levemir to 40 units twice a day; 2. adjust Novolog coverage before meals and add Novolog coverage at bedtime-- detail see the inpatient DM orders; 3. monitor FSGs. will follow Inpatient Diabetes Orders Before Each Meal: Bolus Insulin: Novolog < 80 mg/dl: no coverage 80-100 mg/dl: 6 units 101-120 mg/dl: 6 units 121-150 mg/dl: 6 units 151-200 mg/dl: 8 units 201-250 mg/dl: 10 units 251-300 mg/dl: 12 units 301-350 mg/dl: 14 units 351-400 mg/dl: 16 units > 400 mg/dl: 18 units Bedtime: Bolus Insulin: Novolog < 80 mg/dl: no coverage 80-100 mg/dl: no coverage 101-120 mg/dl: no coverage 121-150 mg/dl: no coverage 151-200 mg/dl: no coverage 201-250 mg/dl: 2 units 251-300 mg/dl: 4 units 301-350 mg/dl: 6 units 351-400 mg/dl: 7 units > 400 mg/dl: 8 units Consult Acknowledgment - Thank you for your consult request.
[2016-10-15 12:06] LABS: PT 13.9 SEC (9.4-12.5)
--- NOTE | 2016-10-15 12:23 | Cons- Infect Disease ---
General Information and HPI Consulting Request Date of Consult: 10/15/16 Requested By: EDA RODRIGUEZ MD Reason for Consult: Rule out sepsis of urologic origin Source of Information: patient History of Present Illness: This is a 51-year-old woman with diabetes, hypertension, arthritis and asthma admitted on October 14 with a one-day history of left flank pain associated with fevers, chills, nausea and vomiting and with urinary frequency and urgency 1 week prior to admission. On admission she was febrile to 104.8. Laboratory data revealed a white blood cell count of 7000, platelets 125,000, glucose 321, BUN/creatinine 18 and 0.7, bilirubin 1.4, lactic acid 3.0. Urinalysis 1-3 RBC/ greater than 75 WBCs. Chest x-ray was negative. CT of the abdomen and pelvis without contrast revealed edema in the perinephric fat around the left kidney and ureter with no hydronephrosis or calculi. She was given 3 L of fluid in the emergency room and a dose of Moxifloxacin. In the emergency room she developed a headache and shortness of breath. A CT of the head was negative for any acute process and a repeat chest x-ray revealed increased right basilar opacity. She was admitted to the ICU and begun on Ciprofloxacin. Overnight one blood culture was reported positive for gram-negative rods, and Flagyl was added. She remained febrile overnight, though lower grade, and feels improved this morning with no further left flank pain, nausea or vomiting. She has no urinary complaints, but does note mild mid abdominal discomfort. Allergies/Medications Allergies: Coded Allergies: cephalexin (From KEFLEX) (THROAT CLOSES AND SWELLS 10/14/16) clindamycin (HIVES 10/14/16) Home Med List: Albuterol Sulfate (Proair Hfa) 90 MCG HFA.AER.AD 2 PUF INH Q6H PRN ASTHMA ( Reported) Amitriptyline HCl 75 MG TABLET 1 TAB PO QHS MIGRAINES (Reported) Budesonide/Formoterol Fumarate (Symbicort 80-4.5 Mcg Inhaler) 80 MCG-4.5 MCG/ ACTUATION HFA.AER.AD 2 PUF INH BID ASTHMA (Reported) Dulaglutide (Trulicity) 1.5 MG/0.5 ML PEN.INJCTR 1.5 MG SC QMON DM (Reported) Ergocalciferol (Vitamin D2) (Vitamin D2) 50,000 UNIT CAPSULE 1 CAP PO QWED SUPPLEMENT (Reported) Insulin Glargine,Hum.rec.anlog (Lantus Solostar) 100 UNIT/ML (3 ML) INSULN.PEN 60 UNITS SC QPM DM (Reported) Insulin Glargine,Hum.rec.anlog (Lantus Solostar) 100 UNIT/ML (3 ML) INSULN.PEN 50 U SC QAM DM (Reported) Insulin Lispro (Humalog Kwikpen U-100) 100 UNIT/ML INSULN.PEN DM (Reported) Metformin HCl 1,000 MG TABLET 1 TAB PO BID DM (Reported) Tramadol HCl 50 MG TABLET 1 TAB PO QPM PAIN (Reported) Past History Travel History Traveled to [place] past 21 day No Medical History Blood Transfusion Hx: No Neurological: migraine EENT: allergies, sinusitis Cardiovascular: hypertension, hyperlipidemia Respiratory: asthma, obstructive sleep apnea Gastrointestinal: irritable bowel syndrome, pancreatitis Hepatic: NONE Renal: NONE Musculoskeletal: osteoarthritis Psychiatric: NONE Endocrine: diabetes Blood Disorders: NONE Cancer(s): NONE 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 Psychosocial History Where Do You Live? Home Who Do You Live With? spouse Services at Home: None Primary Language: Faroese Smoking Status: Current Everyday Smoker ETOH Use: denies use Functional Ability ADLs Independent: dressing, eating, toileting, bathing. Ambulation: independent, cane, walker IADLs Independent: shopping, housework, finances, food prep, telephone, transportation , medication admin. Review of Systems Review of Systems Cardiovascular: Denies: chest pain. Respiratory: Reports: cough. All Other Systems: Reviewed and Negative Exam & Diagnostic Data Last 24 Hrs of Vital Signs/I&O Vital Signs Date Time Temp Pulse Resp B/P B/P Pulse O2 O2 Flow FiO2 Mean Ox Delivery Rate 10/15 1200 92 Nasal 6.0L Cannula 10/15 0913 103 10/15 0800 94 Venti Mask 55% 10/15 0800 98.3 108 20 128/54 97 Venti Mask 55% 10/15 0442 94 Venti Mask 10/15 0403 98.8 109 20 107/44 97 Venti Mask 10/15 0251 101.3 10/15 0242 96 Venti Mask 55% 10/15 0219 93 Venti Mask 55% 10/15 0212 101.3 10/15 0148 101.3 10/14 2124 100.4 99 16 102/50 95 Room Air 10/14 1915 99.5 118 18 132/0 99 Room Air Room Air 10/14 1855 99.5 10/14 1855 99.5 115 18 127/59 97 Room Air 10/14 1822 102.6 124 22 178/80 92 10/14 1700 104.8 130 22 188/98 92 10/14 1656 104.8 Intake & Output 10/15 1600 10/15 0800 10/15 0000 Intake Total 720 2000 Output Total 400 Balance 320 2000 Intake, IV 400 2000 Intake, Oral 320 Output, Urine 400 Patient 270 lb Weight Weight Reported by Patient Measurement Method Physical Exam Other Physical Findings: She is awake and alert in no acute distress. MAXIMUM TEMPERATURE 104.8. Skin reveals no rash. HEENT exam is negative. Neck is supple with no adenopathy. Lungs are clear. Heart regular rhythm with no murmur. Abdomen is obese, soft, mildly tender over the epigastrium, with no guarding or rebound, positive bowel sounds. Back no CVA tenderness. Extremities chronic venous stasis changes both lower extremities, with no cyanosis, clubbing or edema. Neuro is without focality. Last 24 Hours of Lab Results: Laboratory Tests 10/15 10/15 10/15 1101 0530 0425 Blood Gas pH (7.35 - 7.45 PH) 7.30 *L pCO2 (35 - 45 TORR) 45 pO2 (80 - 100 TORR) 99 HCO3 (21 - 28 MEQ/L) 22 ABG O2 Sat (Measured) (>96.0 %) 96.0 P-50 (Temp Corrected) Y Carboxyhemoglobin (1.5 - 5.0 %) 0.6 L O2 Concentration % 55% Temperature (97.0 - 100.0 FARH) 98.8 O2 Delivery Method V/M Chemistry Sodium Pending Potassium Pending Chloride Pending Carbon Dioxide Pending Anion Gap Pending BUN Pending Creatinine Pending Glucose Pending Lactic Acid (0.7 - 2.1 mmol/L) 1.3 Calcium Pending Phosphorus Pending Magnesium Pending Total Bilirubin Pending AST Pending ALT Pending Albumin Pending Coagulation PT Pending INR Pending Hematology CBC w Diff Pending WBC Pending RBC Pending Hgb Pending Hct Pending MCV Pending MCH Pending RDW Pending Plt Count Pending MPV Pending PUBS MCHC Pending Miscellaneous Phlebotomy Draw Site RIGHT RADIAL 10/15 10/15 0410 0230 Chemistry Sodium (137 - 145 mmol/L) 136 L Potassium (3.5 - 5.1 mmol/L) 3.7 Chloride (98 - 107 mmol/L) 107 Carbon Dioxide (22 - 30 mmol/L) 20 L Anion Gap (5 - 16) 9 BUN (7 - 17 mg/dL) 19 H Creatinine (0.5 - 1.0 mg/dL) 0.7 Estimated GFR (>60 ml/min) > 60 BUN/Creatinine Ratio (7 - 25 %) 27.1 H Troponin I (< 0.11 ng/ml) 0.03 Vit-Q-Uhzhbwdedmq Pept (<125 pg/mL) 735 H Coagulation D-Dimer High Sensitivty (0 - 243 ng/ml) 705 H Hematology CBC w Diff MAN DIFF ORDERED WBC (4.8 - 10.8 /CUMM) 11.5 H RBC (4.20 - 5.40 /CUMM) 3.60 L Hgb (12.0 - 16.0 G/DL) 11.3 L Hct (37 - 47 %) 33.3 L MCV (81.0 - 99.0 FL) 92.4 MCH (27.0 - 31.0 PG) 31.3 H RDW (11.5 - 14.5 %) 14.2 Plt Count (130 - 400 /CUMM) 124 L MPV (7.4 - 10.4 FL) 10.7 H Gran % (42.2 - 75.2 %) 91.7 H Lymphocytes % (20.5 - 51.1 %) 4.2 L Monocytes % (1.7 - 9.3 %) 3.7 Eosinophils % (0 - 5 %) 0.2 Basophils % (0.0 - 2.0 %) 0.2 Absolute Granulocytes (1.4 - 6.5 /CUMM) 10.6 H Segmented Neutrophils (42.2 - 75.2 %) 88 H Band Neutrophils (0.0 - 5.0 %) 6 H Absolute Lymphocytes (1.2 - 3.4 /CUMM) 0.5 L Lymphocytes (20.5 - 51.1 %) 4 L Monocytes (1.7 - 9.3 %) 2 Absolute Monocytes (0.10 - 0.60 /CUMM) 0.4 Absolute Eosinophils (0.0 - 0.7 /CUMM) 0 Absolute Basophils (0.0 - 0.2 /CUMM) 0 Platelet Estimate (ADEQUATE) ADEQUATE Polychromasia 1+ Ovalocytes FEW PUBS MCHC (33.0 - 37.0 G/DL) 33.8 Other Body Source Fld Total RBCs Counted (%) 100 10/15 10/15 10/14 10/14 0200 0155 2121 2111 Blood Gas pH (7.35 - 7.45 PH) 7.36 pCO2 (35 - 45 TORR) 35 pO2 (80 - 100 TORR) 67 L HCO3 (21 - 28 MEQ/L) 19 L ABG O2 Sat (Measured) (>96.0 %) 88.0 L P-50 (Temp Corrected) Y Carboxyhemoglobin (1.5 - 5.0 %) 2.2 O2 Concentration % 55% Temperature (97.0 - 100.0 FARH) 101.3 H O2 Delivery Method V/M Chemistry Lactic Acid (0.7 - 2.1 mmol/L) Cancelled 1.7 Troponin I Cancelled Miscellaneous Phlebotomy Draw Site RIGHT RADIAL 10/14 10/14 1950 1911 Blood Gas Bicarbonate Actual (22 - 26 MEQ/L) 20 L Mixed VBG pH (7.31 - 7.41 PH) 7.42 H Mixed VBG pCO2 (41 - 51 TORR) 32 L Mixed VBG O2 Saturation (35 - 45 TORR) 46 H Carboxyhemoglobin (1.5 - 5.0 %) 2.8 O2 Concentration % R/A Miscellaneous Phlebotomy Draw Site VENOUS Toxicology Urine Opiates Screen (>2000 NG/ML) 1419.00 Methadone Screen (>300 NG/ML) 68 Barbiturate Screen (>200 NG/ML) < 60 Ur Phencyclidine Scrn (>25 NG/ML) < 6.00 Amphetamines Screen (>1000 NG/ML) < 100 U Benzodiazepines Scrn (>200 NG/ML) < 85 Urine Cocaine Screen (>300 NG/ML) < 50 Urine Cannabis Screen (>50 NG/ML) < 5.00 Urines Urine Color (YEL,AMB,STR) YEL Urine Clarity (CLEAR) HAZY H Urine pH (5.0 - 8.0) 6.0 Ur Specific [place] (1.001 - 1.035) 1.020 Urine Protein (NEG,<30 MG/DL) 100 H Urine Ketones (NEG) NEG Urine Nitrite (NEG) POS H Urine Bilirubin (NEG) NEG Urine Urobilinogen (0.1 - 1.0 EU/dl) 0.2 Ur Leukocyte Esterase (NEG) SMALL H Ur Microscopic SEDIMENT EXAMINED Urine RBC (0 - 5 /HPF) 1-3 Urine WBC (0 - 2 /HPF) > 75 H Ur Epithelial Cells (NONE,FEW) MOD H Urine Bacteria (NEG/NONE) MANY H Urine Mucus (FEW,NONE) RARE Urine Hemoglobin (NEG) MOD H Urine Glucose (N MG/DL) >=1000 H 06/ 1716 Chemistry Sodium (137 - 145 mmol/L) 135 L Potassium (3.5 - 5.1 mmol/L) 4.9 Chloride (98 - 107 mmol/L) 99 Carbon Dioxide (22 - 30 mmol/L) 22 Anion Gap (5 - 16) 14 BUN (7 - 17 mg/dL) 18 H Creatinine (0.5 - 1.0 mg/dL) 0.7 Estimated GFR (>60 ml/min) > 60 BUN/Creatinine Ratio (7 - 25 %) 25.7 H Glucose (65 - 99 mg/dL) 321 H Hemoglobin A1c (4.2 - 5.8 %) 9.2 H Lactic Acid (0.7 - 2.1 mmol/L) 3.0 H Calcium (8.4 - 10.2 mg/dL) 10.2 Total Bilirubin (0.2 - 1.3 mg/dL) 1.4 H AST (14 - 36 U/L) 27 ALT (9 - 52 U/L) 51 Alkaline Phosphatase (<127 U/L) 105 Troponin I (< 0.11 ng/ml) < 0.01 Total Protein (6.3 - 8.2 g/dL) 7.5 Albumin (3.5 - 5.0 g/dL) 4.2 Globulin (1.9 - 4.2 gm/dL) 3.3 Albumin/Globulin Ratio (1.1 - 2.2 %) 1.3 Amylase (30 - 110 U/L) 36 Lipase (23 - 300 U/L) 78 Hematology CBC w Diff NO MAN DIFF REQ WBC (4.8 - 10.8 /CUMM) 7.1 RBC (4.20 - 5.40 /CUMM) 4.21 Hgb (12.0 - 16.0 G/DL) 13.2 Hct (37 - 47 %) 39.0 MCV (81.0 - 99.0 FL) 92.7 MCH (27.0 - 31.0 PG) 31.3 H RDW (11.5 - 14.5 %) 14.3 Plt Count (130 - 400 /CUMM) 125 L MPV (7.4 - 10.4 FL) 10.7 H Gran % (42.2 - 75.2 %) 91.7 H Lymphocytes % (20.5 - 51.1 %) 7.6 L Monocytes % (1.7 - 9.3 %) 0.5 L Eosinophils % (0 - 5 %) 0.1 Basophils % (0.0 - 2.0 %) 0.1 Absolute Granulocytes (1.4 - 6.5 /CUMM) 6.5 Absolute Lymphocytes (1.2 - 3.4 /CUMM) 0.5 L Absolute Monocytes (0.10 - 0.60 /CUMM) 0 L Absolute Eosinophils (0.0 - 0.7 /CUMM) 0 Absolute Basophils (0.0 - 0.2 /CUMM) 0 PUBS MCHC (33.0 - 37.0 G/DL) 33.8 Toxicology Acetone Level (NEGATIVE) NEGATIVE Last 24 Hours of Scar Results: Blood cultures 2 October 14 positive for gram-negative rods Urine culture October 14 greater than 100,000 colonies of gram-negative rods Diagnostic Data Recent Imaging Findings: Chest x-ray October 14, personally reviewed, negative. CT of the abdomen and pelvis without contrast October 14 revealed edema in the perinephric fat around the left kidney and ureter with no hydronephrosis or calculi. CT of the head October 14 negative for any acute process Chest x-ray October 15, personally reviewed, reveals an increased right basilar opacity. Assessment/Plan Assessment/Plan Impression: This is a 51-year-old woman with diabetes admitted on October 14 with a one-day history of left flank pain, nausea, vomiting, fevers and chills and with the complaints of urinary frequency and urgency one week prior to admission, found to be febrile with a normal white blood cell count with pyuria now with blood cultures and urine culture positive for gram-negative rods. Her clinical picture is consistent with sepsis of urologic origin, with the CT findings of edema in the perinephric fat around the left kidney suggestive of a left pyelonephritis. Note her blood cultures were positive in both the aerobic and anaerobic bottles, and the most likely organism is Escherichia coli, with anaerobes unlikely. Of interest her white blood cell count was normal on admission, possibly secondary to her diabetes. As she appears somewhat improved on Ciprofloxacin, this can be continued pending final cultures, though up to 25% of Escherichia coli at [facility] are resistant to Ciprofloxacin. She reports an allergy to Keflex, but has tolerated Amoxicillin, and will await final cultures prior to adjusting her antibiotics. Suggestion: 1. Follow-up final urine and blood cultures 2. Discontinue Flagyl 3. Continue Ciprofloxacin, but can change to 500 mg po every 12 hours pending above 4. If patient deteriorates would add Gentamicin 180 mg loading dose followed by 100 mg IV every 8 hours pending cultures Consult Acknowledgment - Thank you for your consult request.
[2016-10-15 12:38] LABS: ABSOLUTE BASOPHIL COUNT 0 /CUMM (0.0-0.2); ABSOLUTE EOSINOPHIL COUNT 0 /CUMM (0.0-0.7); ABSOLUTE GRANULOCYTE CT 10.7 /CUMM (1.4-6.5); ABSOLUTE LYMPH COUNT 0.7 /CUMM (1.2-3.4); ABSOLUTE MONOCYTE COUNT 0.4 /CUMM (0.10-0.60); BASOPHIL % 0.2 % (0.0-2.0); EOSINOPHIL % 0.2 % (0-5); HEMATOCRIT 32.2 % (37-47); MEAN CORPUSCULAR HGB CONC 33.4 G/DL (33.0-37.0); MEAN CORPUSCULAR VOLUME 92.8 FL (81.0-99.0); MEAN PLATELET VOLUME 11.1 FL (7.4-10.4); PLATELET COUNT 120 /CUMM (130-400); RBC DISTRIBUTION WIDTH 14.6 % (11.5-14.5); RED BLOOD CELL CT 3.47 /CUMM (4.20-5.40); WHITE BLOOD CELL COUNT 11.8 /CUMM (4.8-10.8)
[2016-10-15 13:06] LABS: GRANULOCYTE % 90.1 % (42.2-75.2)
[2016-10-15 16:00] VITALS: BP 110/60
[2016-10-15 23:00] VITALS: BP 135/63
[2016-10-16 06:00] LABS: ABSOLUTE BASOPHIL COUNT 0 /CUMM (0.0-0.2); ABSOLUTE EOSINOPHIL COUNT 0 /CUMM (0.0-0.7); ABSOLUTE GRANULOCYTE CT 7.5 /CUMM (1.4-6.5); ABSOLUTE LYMPH COUNT 0.8 /CUMM (1.2-3.4); ABSOLUTE MONOCYTE COUNT 0.4 /CUMM (0.10-0.60); BASOPHIL % 0.2 % (0.0-2.0); EOSINOPHIL % 0.4 % (0-5); HEMATOCRIT 31.5 % (37-47); MEAN CORPUSCULAR HGB CONC 33.2 G/DL (33.0-37.0); MEAN CORPUSCULAR VOLUME 93.3 FL (81.0-99.0); MEAN PLATELET VOLUME 10.9 FL (7.4-10.4); PLATELET COUNT 119 /CUMM (130-400); RBC DISTRIBUTION WIDTH 14.5 % (11.5-14.5); RED BLOOD CELL CT 3.37 /CUMM (4.20-5.40); WHITE BLOOD CELL COUNT 8.7 /CUMM (4.8-10.8)
[2016-10-16 06:39] LABS: GRANULOCYTE % 85.9 % (42.2-75.2)
[2016-10-16 07:00] VITALS: BP 119/67
--- NOTE | 2016-10-16 08:51 | PN- Resident CRCU ---
Subjective HPI/CRCU Issues: No acute events overnight. Patient remained afebrile. She was on BiPAP overnight. Patient was seen and examined this morning. She feels slightly better. Her only complaint is severe headache that is 8-9/10 in intensity not alleviated by Tylenol. She denies nausea or vomiting. Respiratory status has improved. She is on 3 L NC. Objective Vital Signs & I&O Last 8 Hrs of Vitals and I&O: Intake & Output 10/16 1600 Intake Total 880 Output Total 275 Balance 605 Intake, Oral 880 Output, Urine 275 Exam General Appearance: no apparent distress, alert, awake Head: atraumatic, normal appearance Neck: normal inspection, supple Respiratory: lungs clear Cardiovascular: regular rate/rhythm, no murmurs, rubs or gallops Gastrointestinal: soft, non-tender, positive bowel sounds Extremities: no edema, no cyanosis or clubbing, bilateral lower extremities with skin changes consistent with chronic venous stasis Skin: intact, normal color, warm/dry Current Medications: Current Medications Sig/Adam Start time Last Medication Dose Route Stop Time Status Admin Acetaminophen 325 MG Q6P PRN 10/15 1815 AC PO Acetaminophen 650 MG Q4P PRN 10/15 1815 AC 10/16 PO 0854 Acetaminophen 650 MG Q6P PRN 10/14 2330 DC 10/15 PO 1437 Albuterol Sulfate 3 ML EVERY 4 HRS/AWAKE 10/16 1200 AC 10/16 INH 1321 Albuterol Sulfate 3 ML EVERY 4 HRS/AWAKE .. 10/15 1609 DC 10/15 INH 2022 Albuterol Sulfate 3 ML Q6 PRN 10/15 0230 DC 10/15 INH 1607 Albuterol Sulfate 2 PUF Q6P PRN 10/14 2245 AC 10/15 INH 0042 Amitriptyline HCl 75 MG AT BEDTIME 10/14 2345 AC 10/15 PO 2125 Budesonide/ 2 PUF BID 10/14 2314 AC 10/16 Formoterol Fumarate INH 1038 Ciprofloxacin 500 MG BID 10/15 1300 AC 10/16 PO 06 1259 0855 Diclofenac Sodium 1 BARBARA 4 TIMES/DAY 10/16 1400 AC 10/16 TOP 1326 Heparin Sodium 5,000 UNIT Q8 10/15 0600 AC 10/16 (Porcine) SC 1325 Ibuprofen 600 MG Q6P PRN 10/15 1815 AC 10/16 PO 1246 Insulin Aspart 0 TIDAC/HS 10/15 1200 AC 10/16 SC 1326 Insulin Detemir 40 UNITS BID 10/15 1000 AC 10/16 SC 1034 Magnesium Sulfate 1 GM Q2H 10/15 1445 DC 10/15 Dextrose/Water 100 ML IV 10/15 1844 1618 Morphine Sulfate 1 MG Q4P PRN 10/14 2330 DC IV Ondansetron HCl 4 MG Q6P PRN 10/14 2345 AC 10/15 IV 0120 Oxycodone HCl 5 MG .STK-MED ONE 10/15 1619 DC PO 10/15 1620 Oxycodone HCl 5 MG Q6P PRN 10/14 2330 DC 10/15 PO 1618 Polyethylene Glycol 17 GM DAILY 10/14 2345 10/16 PO 1032 Senna 187 MG AT BEDTIME 10/15 2200 10/15 PO 2127 Sodium Chloride 1,000 ML Q6H 10/15 0800 DC 10/15 IV 10/15 1959 1426 Results Results: Laboratory Tests 10/16 10/16 0520 0130 Chemistry Sodium (137 - 145 mmol/L) 136 L 135 L Potassium (3.5 - 5.1 mmol/L) 4.2 4.0 Chloride (98 - 107 mmol/L) 107 106 Carbon Dioxide (22 - 30 mmol/L) 20 L 19 L Anion Gap (5 - 16) 9 10 BUN (7 - 17 mg/dL) 19 H 19 H Creatinine (0.5 - 1.0 mg/dL) 0.7 0.7 Estimated GFR (>60 ml/min) > 60 > 60 Glucose (65 - 99 mg/dL) 188 H 174 H Calcium (8.4 - 10.2 mg/dL) 8.8 8.7 Phosphorus (2.5 - 4.5 mg/dL) 2.9 2.9 Magnesium (1.6 - 2.3 mg/dL) 1.9 1.8 Total Bilirubin (0.2 - 1.3 mg/dL) 0.9 1.1 AST (14 - 36 U/L) 32 33 ALT (9 - 52 U/L) 50 38 Albumin (3.5 - 5.0 g/dL) 2.9 L 2.8 L Hematology CBC w Diff NO MAN DIFF REQ WBC (4.8 - 10.8 /CUMM) 8.7 RBC (4.20 - 5.40 /CUMM) 3.37 L Hgb (12.0 - 16.0 G/DL) 10.4 L Hct (37 - 47 %) 31.5 L MCV (81.0 - 99.0 FL) 93.3 MCH (27.0 - 31.0 PG) 31.0 RDW (11.5 - 14.5 %) 14.5 Plt Count (130 - 400 /CUMM) 119 L MPV (7.4 - 10.4 FL) 10.9 H Gran % (42.2 - 75.2 %) 85.9 H Lymphocytes % (20.5 - 51.1 %) 9.2 L Monocytes % (1.7 - 9.3 %) 4.3 Eosinophils % (0 - 5 %) 0.4 Basophils % (0.0 - 2.0 %) 0.2 Absolute Granulocytes (1.4 - 6.5 /CUMM) 7.5 H Absolute Lymphocytes (1.2 - 3.4 /CUMM) 0.8 L Absolute Monocytes (0.10 - 0.60 /CUMM) 0.4 Absolute Eosinophils (0.0 - 0.7 /CUMM) 0 Absolute Basophils (0.0 - 0.2 /CUMM) 0 PUBS MCHC (33.0 - 37.0 G/DL) 33.2 Legionella urinary Ag (10/15/16): Negative Strep pneumo urinary Ag (10/15/16): Negative UCx (10/14/16): >100,000 colonies/ml of Escherichia coli resistant to ampicillin but sensitive to all other antibiotics tested including ciprofloxacin BCx (10/14/16): Gram negative rods x2 Impression/Plan Impression/Problem List Impression: Ms Erickson is 51 year old female with past medical history significant for type 2 DM (uncontrolled), 50 pk yr smoking hisotry, HTN, HLD presented with chief complaint of left sided back pain x 1 day. Problem list #Left pyelonephritis #Sepsis #History of diabetes #Acute hypoxemic respiratory failure #COPD #SEDA on chronic CPAP #Hypertension and hyperlipidemia Plan #ID: Sepsis of urological origin with perinephric stranding on CT Abdomen/Pelvis suggestive of left-sided pyelonephritis -UCx growing >100,000 colonies/ml of Escherichia resistant to ampicillin but sensitive to all other antibiotics tested including ciprofloxacin -BCx x2 with gram negative rods, speciation and susceptibilities pending -ID consultation was obtained, thanks for consultation -Remains afebrile on ciprofloxacin day 2 with resolution of leukocytosis -Downgrade to GM -IVF discontinued -Continue ciprofloxacin 500 mg by mouth every 12 -Monitor vitals and CBC -CT scan abdomen and pelvis IMPRESSION: Edema in the perinephric fat around the left kidney without hydronephrosis. No renal or ureteral calculus. Etiology for the edema around the kidney is not defined with this exam. Could consider an inflammatory infectious etiology, pyelonephritis. Correlate with urinalysis. In addition a postcontrast CAT scan of the abdomen and pelvis may be helpful. Respiratory -Likely secondary to respiratory airway disease with probable COPD as well as SEDA on chronic CPAP -Respiratory status improved today. On 3 L NC -Right basal opacity likely represents atelectasis as opposed to aspiration pneumonitis given unremarkable lung bases on CT Abdomen -No need for BiPAP for now. Continue nocturnal CPAP -Aspiration precautions -Wean oxygen to keep SpO2 around 92% -TRC and nebs -Avoid narcotics -Replete electroytes GI -Nausea/vomiting has resolved -IV Zofran for any nausea or evidence of vomiting Metabolic -Poor controlled DM -Endocrine consultation was obtained -Continue Levemir 40 units twice a day -NovoLog sliding scale Neurology -Continue amitriptyline at bedtime 75 mg DVT prophylaxis heparin subcutaneous Code full Diet CC3 Consultation ID, endocrine Problem List: 1. Sepsis 2. Reactive airway disease 3. SEDA on CPAP 4. HTN (hypertension) 5. HLD (hyperlipidemia) 6. Pyelonephritis 7. Acute hypoxemic respiratory failure Pain Ratin Tomorrow's Labs & Rationales: CBC and ICU bundle (ICU patient) Plan DVT/Prophylaxis: mechanical, pharmacological
--- NOTE | 2016-10-16 10:16 | PN- Pulmonary ---
Subjective HPI/Critical Care Issues: Doing a little better Afebrile Complaints of headache No nausea vomiting Did use BiPAP last night Review of symptoms otherwise unremarkable Significant data Sodium 136 anion gap is 9 BUN is 19 creatinine is normal last A1c was 9.2 tox screen upon admission was unremarkable white count down to 8.7 hemoglobin stable at 10.4 platelets have stabilized to 119 INR 1.33 last ABG from yesterday did not reveal any significant hypercarbia but prior to that her PCO2 is 45 cultures have grown gram-negative rods and urine has grown gram-negative rods patient is on Cipro by mouth Objective Current Medications: Current Medications Sig/Adam Start time Last Medication Dose Route Stop Time Status Admin Acetaminophen 325 MG Q6P PRN 10/15 1815 AC PO Acetaminophen 650 MG Q4P PRN 10/15 1815 AC 10/16 PO 0854 Acetaminophen 650 MG Q6P PRN 10/14 2330 DC 10/15 PO 1437 Albuterol Sulfate 3 ML EVERY 4 HRS/AWAKE 10/16 1200 AC 10/16 INH 0907 Albuterol Sulfate 3 ML EVERY 4 HRS/AWAKE .. 10/15 1609 DC 10/15 INH 2022 Albuterol Sulfate 3 ML Q6 PRN 10/15 0230 DC 10/15 INH 1607 Albuterol Sulfate 2 PUF Q6P PRN 10/14 2245 AC 10/15 INH 0042 Amitriptyline HCl 75 MG AT BEDTIME 10/14 2345 AC 10/15 PO 2125 Budesonide/ 2 PUF BID / 2314 AC 10/15 Formoterol Fumarate INH 2127 Ciprofloxacin 500 MG BID 10/15 1300 AC 10/16 PO 10/19 1259 0855 Ciprofloxacin 400 MG Q12H 10/15 0200 DC 10/15 Dextrose/Water 200 ML IV 0237 Heparin Sodium 5,000 UNIT Q8 10/15 0600 AC 10/16 (Porcine) SC 0515 Ibuprofen 600 MG Q6P PRN 10/15 1815 AC 10/16 PO 0118 Insulin Aspart 0 TIDAC/HS 10/15 1200 AC 10/16 SC 0856 Insulin Detemir 40 UNITS BID / 1000 AC 10/15 SC 2131 Magnesium Sulfate 1 GM Q2H 10/15 1445 DC 10/15 Dextrose/Water 100 ML IV 10/15 1844 1618 Metronidazole 500 MG Q8H / 0500 DC 10/15 N/A 1 UNIT IV 0550 Morphine Sulfate 1 MG Q4P PRN 10/14 2330 DC IV Ondansetron HCl 4 MG Q6P PRN 10/14 2345 AC 10/15 IV 0120 Oxycodone HCl 5 MG .STK-MED ONE 10/15 1619 DC PO 10/15 1620 Oxycodone HCl 5 MG Q6P PRN 10/14 2330 DC 10/15 PO 1618 Patient Medication 1 ED .STK-MED ONE 10/15 1431 DC Teaching ED 10/15 1432 Polyethylene Glycol 17 GM DAILY 10/14 2345 PO Senna 187 MG AT BEDTIME 10/15 2200 AC 10/15 PO 2127 Sodium Chloride 1,000 ML Q6H 10/15 08 DC 10/15 IV 10/15 1959 1426 Vital Signs & I&O Last 24 Hrs of Vitals and I&O: Vital Signs Date Time Temp Pulse Resp B/P B/P Pulse O2 O2 Flow FiO2 Mean Ox Delivery Rate 10/16 0910 94 Nasal 3.0L Cannula 10/16 0700 98.7 104 24 119/67 97 Nasal 3.0L Cannula 10/16 0554 91 97 10/16 0400 96 BIPAP 30% 10/16 0335 97 94 10/16 0204 110 94 10/16 0118 99.7 06/ 0000 93 BIPAP 30% 10/15 2300 99.7 100 17 135/63 94 BIPAP 30% 10/15 2300 76 97 / 2132 99.8 10/15 2042 98.0 10/150 98.0 10/15 2024 94 Nasal 3.0L Cannula 10/15 2000 100 Room Air 10/15 1600 97 Nasal 4.0L Cannula 10/15 1600 98.0 94 18 110/60 96 Nasal 4.0L Cannula 10/15 1428 Nasal 4.0L Cannula 10/15 1200 92 Nasal 6.0L Cannula Intake & Output 10/16 1600 /03 0800 10/16 0000 Intake Total 150 1750 Output Total 475 950 Balance -325 800 Intake, IV 1050 Intake, Oral 150 700 Output, Urine 475 950 Impression/Plan Impression/Plan Impression/Plan: She is awake and alert in no acute distress. Skin reveals no rash. HEENT exam is negative. Neck is supple with no adenopathy. Lungs are clear. Heart regular rhythm with no murmur. Abdomen is obese, soft, mildly tender over the epigastrium, with no guarding or rebound, positive bowel sounds. Back no CVA tenderness. Extremities chronic venous stasis changes both lower extremities, with no cyanosis, clubbing or edema. Neuro is without focality. IMPRESSION This is a 51-year-old lady with diabetes, hypertension, arthritis, reactive airway disease, came in with left flank pain nausea vomiting fever and chills with urinary frequency and urgency with pyuria with blood culture and urine culture positive for gram-negative rods. She does have the following issues * Sepsis of urological origin which is improving * Perinephric stranding suggestive of left-sided significant pyelonephritis * Significant diabetes * Reactive airway disease with probable COPD, obstructive sleep apnea on chronic CPAP * History of hypertension hyperlipidemia * Right basal opacity probable atelectasis rule out aspiration pneumonitis but seems unlikely as her lung bases were unremarkable in the CT abdomen RECOMMENDATION Continue antibiotics and broadened the antibiotic coverage if she spikes - please see infectious disease note Continue bedtime Cpap Continue insulin per endocrine Continue her current inhalation therapy Reduce his oxygen to keep the O2 sat 92% No need for BiPAP she could just be on CPAP and she was on CPAP at home from [facility] If she is improving, later today she could go to a regular medical floor.
--- NOTE | 2016-10-16 12:11 | PN- Diabetes ---
Assessment/Plan Assessment: Ms Erickson is a 51 yr old woman who has past medical history of uncontrolled DMn type 2, asthma, smoking hisotry, HTN, HLD and overweight. She came in with a chief concern of left sided back pain x one day. Her peak temperature was 104.8. She was admitted for acute pyelonephritis. However, patient vomited multiple times and had an episode of breathing difficulty and then she was transfered to ICU. She feels better and breathing improved. She is going to be transfered to floor today. She was put on Levemir 40 units twice a day; Novolog before meals was adjusted. Her FSGs were 199, 201, 200, 201 and 187. Plan: continue the current insulin regimen; monitor FSGs; will follow. Subjective Subjective: She feels better. Objective Last 24 Hrs of Vital Signs/I&O Vital Signs Date Time Temp Pulse Resp B/P B/P Pulse O2 O2 Flow FiO2 Mean Ox Delivery Rate 10/16 0910 94 Nasal 3.0L Cannula 10/16 0800 96 Nasal 3.0L Cannula 10/16 0700 98.7 104 24 119/67 97 Nasal 3.0L Cannula 10/16 0554 91 97 / 0400 96 BIPAP 30% 10/16 0335 97 94 / 0204 110 94 10/16 0118 99.7 06/ 0000 93 BIPAP 30% 10/15 2300 99.7 100 17 135/63 94 BIPAP 30% / 2300 76 97 06/ 2132 99.8 10/15 2042 98.0 06 2040 98.0 10/15 2024 94 Nasal 3.0L Cannula 10/15 2000 100 Room Air 10/15 1600 97 Nasal 4.0L Cannula 10/15 1600 98.0 94 18 110/60 96 Nasal 4.0L Cannula 10/15 1428 Nasal 4.0L Cannula Intake & Output 10/16 1600 / 0800 06/ 0000 Intake Total 150 1750 Output Total 475 950 Balance -325 800 Intake, IV 1050 Intake, Oral 150 700 Output, Urine 475 950 Findings Pertinent Lab/Scar Results: Laboratory Tests 10/16 10/16 0520 0130 Chemistry Sodium (137 - 145 mmol/L) 136 L 135 L Potassium (3.5 - 5.1 mmol/L) 4.2 4.0 Chloride (98 - 107 mmol/L) 107 106 Carbon Dioxide (22 - 30 mmol/L) 20 L 19 L Anion Gap (5 - 16) 9 10 BUN (7 - 17 mg/dL) 19 H 19 H Creatinine (0.5 - 1.0 mg/dL) 0.7 0.7 Estimated GFR (>60 ml/min) > 60 > 60 Glucose (65 - 99 mg/dL) 188 H 174 H Calcium (8.4 - 10.2 mg/dL) 8.8 8.7 Phosphorus (2.5 - 4.5 mg/dL) 2.9 2.9 Magnesium (1.6 - 2.3 mg/dL) 1.9 1.8 Total Bilirubin (0.2 - 1.3 mg/dL) 0.9 1.1 AST (14 - 36 U/L) 32 33 ALT (9 - 52 U/L) 50 38 Albumin (3.5 - 5.0 g/dL) 2.9 L 2.8 L Hematology CBC w Diff NO MAN DIFF REQ WBC (4.8 - 10.8 /CUMM) 8.7 RBC (4.20 - 5.40 /CUMM) 3.37 L Hgb (12.0 - 16.0 G/DL) 10.4 L Hct (37 - 47 %) 31.5 L MCV (81.0 - 99.0 FL) 93.3 MCH (27.0 - 31.0 PG) 31.0 RDW (11.5 - 14.5 %) 14.5 Plt Count (130 - 400 /CUMM) 119 L MPV (7.4 - 10.4 FL) 10.9 H Gran % (42.2 - 75.2 %) 85.9 H Lymphocytes % (20.5 - 51.1 %) 9.2 L Monocytes % (1.7 - 9.3 %) 4.3 Eosinophils % (0 - 5 %) 0.4 Basophils % (0.0 - 2.0 %) 0.2 Absolute Granulocytes (1.4 - 6.5 /CUMM) 7.5 H Absolute Lymphocytes (1.2 - 3.4 /CUMM) 0.8 L Absolute Monocytes (0.10 - 0.60 /CUMM) 0.4 Absolute Eosinophils (0.0 - 0.7 /CUMM) 0 Absolute Basophils (0.0 - 0.2 /CUMM) 0 PUBS MCHC (33.0 - 37.0 G/DL) 33.2
[2016-10-16 16:00] VITALS: BP 118/60
[2016-10-16 19:43] VITALS: BP 152/60
[2016-10-16 22:20] VITALS: BP 140/60
[2016-10-17 07:02] VITALS: BP 148/60
[2016-10-17 08:47] LABS: ABSOLUTE BASOPHIL COUNT 0 /CUMM (0.0-0.2); ABSOLUTE EOSINOPHIL COUNT 0 /CUMM (0.0-0.7); ABSOLUTE GRANULOCYTE CT 5.6 /CUMM (1.4-6.5); ABSOLUTE MONOCYTE COUNT 0.4 /CUMM (0.10-0.60); BASOPHIL % 0.3 % (0.0-2.0); EOSINOPHIL % 0.6 % (0-5); GRANULOCYTE % 79.1 % (42.2-75.2); HEMATOCRIT 30.6 % (37-47); MEAN CORPUSCULAR HGB 31.1 PG (27.0-31.0); MEAN CORPUSCULAR VOLUME 91.3 FL (81.0-99.0); MEAN PLATELET VOLUME 10.5 FL (7.4-10.4); PLATELET COUNT 125 /CUMM (130-400); RBC DISTRIBUTION WIDTH 14.3 % (11.5-14.5); RED BLOOD CELL CT 3.35 /CUMM (4.20-5.40); WHITE BLOOD CELL COUNT 7.1 /CUMM (4.8-10.8)
--- NOTE | 2016-10-17 09:52 | PN- Infect Dx ---
Subjective Subjective: MAXIMUM TEMPERATURE 100.5. She feels well with no further back pain or urinary symptoms. Objective Last 24 Hrs of Vital Signs/I&O Vital Signs Date Time Temp Pulse Resp B/P B/P Pulse O2 O2 Flow FiO2 Mean Ox Delivery Rate 10/17 0814 79 Room Air 10/17 0800 Nasal 2.0L Cannula 10/17 0702 100.1 101 22 148/60 96 Nasal 2.0L Cannula 10/17 0000 Nasal 2.0L Cannula 10/16 2220 100.5 101 20 140/60 95 Nasal Cannula 10/16 1943 99.9 111 20 152/60 94 Nasal Cannula 10/16 1940 96 Nasal 2.0L Cannula 10/16 1600 96 Nasal 2.0L Cannula 10/16 1600 98.0 91 20 118/60 96 Nasal 2.0L Cannula Intake & Output 10/17 1600 10/17 0810/17 0000 Intake Total 720 Output Total 500 900 Balance -500 -180 Intake, Oral 720 Output, Urine 500 900 Physical Exam Other Physical Findings: She appears comfortable in no acute distress Lungs are clear Heart regular rhythm with no murmur Abdomen is soft, obese, nontender with positive bowel sounds Back no CVA tenderness Extremities chronic venous stasis changes both lower extremities, with 1+ edema Results Last 24 Hours of Lab Results: Laboratory Tests 10/17 08 Chemistry Sodium (137 - 145 mmol/L) 136 L Potassium (3.5 - 5.1 mmol/L) 4.1 Chloride (98 - 107 mmol/L) 106 Carbon Dioxide (22 - 30 mmol/L) 22 Anion Gap (5 - 16) 9 BUN (7 - 17 mg/dL) 17 Creatinine (0.5 - 1.0 mg/dL) 0.6 Estimated GFR (>60 ml/min) > 60 BUN/Creatinine Ratio (7 - 25 %) 28.3 H Hematology CBC w Diff NO MAN DIFF REQ WBC (4.8 - 10.8 /CUMM) 7.1 RBC (4.20 - 5.40 /CUMM) 3.35 L Hgb (12.0 - 16.0 G/DL) 10.4 L Hct (37 - 47 %) 30.6 L MCV (81.0 - 99.0 FL) 91.3 MCH (27.0 - 31.0 PG) 31.1 H RDW (11.5 - 14.5 %) 14.3 Plt Count (130 - 400 /CUMM) 125 L MPV (7.4 - 10.4 FL) 10.5 H Gran % (42.2 - 75.2 %) 79.1 H Lymphocytes % (20.5 - 51.1 %) 14.5 L Monocytes % (1.7 - 9.3 %) 5.5 Eosinophils % (0 - 5 %) 0.6 Basophils % (0.0 - 2.0 %) 0.3 Absolute Granulocytes (1.4 - 6.5 /CUMM) 5.6 Absolute Lymphocytes (1.2 - 3.4 /CUMM) 1.0 L Absolute Monocytes (0.10 - 0.60 /CUMM) 0.4 Absolute Eosinophils (0.0 - 0.7 /CUMM) 0 Absolute Basophils (0.0 - 0.2 /CUMM) 0 PUBS MCHC (33.0 - 37.0 G/DL) 34.0 Last 24 Hours of Scar Results: Blood cultures October 14 positive for Escherichia coli resistant to Ampicillin Urine culture October 14 greater than 100,000 colonies of Escherichia coli resistant to Ampicillin Urine strep pneumo antigen and Legionella antigen October 15 negative Assessment/Plan Impression: Improving with temperatures lower grade and white blood cell count now normal on Ciprofloxacin Day 3 of treatment for Escherichia coli sepsis of urologic origin. Suggestion: 1. Continue Ciprofloxacin to complete a 7 day course of treatment
--- NOTE | 2016-10-17 11:03 | PN- Diabetes ---
Assessment/Plan Assessment: Ms Erickson is a 51 yr old woman who has past medical history of uncontrolled DMn type 2, asthma, smoking hisotry, HTN, HLD and overweight. She came in with a chief concern of left sided back pain x one day. Her peak temperature was 104.8. She was admitted for acute pyelonephritis. However, patient vomited multiple times and had an episode of breathing difficulty and then she was transfered to ICU. She feels better and breathing improved. She was put on Levemir 40 units twice a day; Novolog before meals was adjusted. Her FSGs were 187, 237, 254, 235 and 157. Plan: continue the current insulin regimen for now; monitor FSGs; will follow. Subjective Subjective: She feels slightly better tis morning. Objective Last 24 Hrs of Vital Signs/I&O Vital Signs Date Time Temp Pulse Resp B/P B/P Pulse O2 O2 Flow FiO2 Mean Ox Delivery Rate 10/17 0814 79 Room Air 10/17 0800 Nasal 2.0L Cannula 10/17 0702 100.1 101 22 148/60 96 Nasal 2.0L Cannula 10/17 0000 Nasal 2.0L Cannula 10/16 2220 100.5 101 20 140/60 95 Nasal Cannula 10/16 1943 99.9 111 20 152/60 94 Nasal Cannula 10/16 1940 96 Nasal 2.0L Cannula 10/16 1600 96 Nasal 2.0L Cannula 10/16 1600 98.0 91 20 118/60 96 Nasal 2.0L Cannula Intake & Output 10/17 1600 10/17 0800 06/04 0000 Intake Total 720 Output Total 500 900 Balance -500 -180 Intake, Oral 720 Output, Urine 500 900 Findings Pertinent Lab/Scar Results: Laboratory Tests 10/17 0829 Chemistry Sodium (137 - 145 mmol/L) 136 L Potassium (3.5 - 5.1 mmol/L) 4.1 Chloride (98 - 107 mmol/L) 106 Carbon Dioxide (22 - 30 mmol/L) 22 Anion Gap (5 - 16) 9 BUN (7 - 17 mg/dL) 17 Creatinine (0.5 - 1.0 mg/dL) 0.6 Estimated GFR (>60 ml/min) > 60 BUN/Creatinine Ratio (7 - 25 %) 28.3 H Hematology CBC w Diff NO MAN DIFF REQ WBC (4.8 - 10.8 /CUMM) 7.1 RBC (4.20 - 5.40 /CUMM) 3.35 L Hgb (12.0 - 16.0 G/DL) 10.4 L Hct (37 - 47 %) 30.6 L MCV (81.0 - 99.0 FL) 91.3 MCH (27.0 - 31.0 PG) 31.1 H RDW (11.5 - 14.5 %) 14.3 Plt Count (130 - 400 /CUMM) 125 L MPV (7.4 - 10.4 FL) 10.5 H Gran % (42.2 - 75.2 %) 79.1 H Lymphocytes % (20.5 - 51.1 %) 14.5 L Monocytes % (1.7 - 9.3 %) 5.5 Eosinophils % (0 - 5 %) 0.6 Basophils % (0.0 - 2.0 %) 0.3 Absolute Granulocytes (1.4 - 6.5 /CUMM) 5.6 Absolute Lymphocytes (1.2 - 3.4 /CUMM) 1.0 L Absolute Monocytes (0.10 - 0.60 /CUMM) 0.4 Absolute Eosinophils (0.0 - 0.7 /CUMM) 0 Absolute Basophils (0.0 - 0.2 /CUMM) 0 PUBS MCHC (33.0 - 37.0 G/DL) 34.0
--- NOTE | 2016-10-17 13:31 | PN- Att Addend ---
Attending Addendum Attending Brief Note Patient seen and examined, she was transferred out of ICU last night. She denies any current complaints. She still requiring 2 L of oxygen. Vital Signs Date Time Temp Pulse Resp B/P B/P Pulse O2 O2 Flow FiO2 Mean Ox Delivery Rate 10/17 1124 95 Nasal 2.0L Cannula 10/17 0814 79 Room Air 10/17 0800 Nasal 2.0L Cannula 10/17 0702 100.1 101 22 148/60 96 Nasal 2.0L Cannula 10/17 0000 Nasal 2.0L Cannula 10/16 2220 100.5 101 20 140/60 95 Nasal Cannula 10/16 1943 99.9 111 20 152/60 94 Nasal Cannula 10/16 1940 96 Nasal 2.0L Cannula 10/16 1600 96 Nasal 2.0L Cannula 10/16 1600 98.0 91 20 118/60 96 Nasal 2.0L Cannula on exam; aox3, nad. cv; s1,s2, rrr resp; clear abd; soft, nt, bs+ ext; no edema, Laboratory Tests 10/17 08 Chemistry Sodium (137 - 145 mmol/L) 136 L Potassium (3.5 - 5.1 mmol/L) 4.1 Chloride (98 - 107 mmol/L) 106 Carbon Dioxide (22 - 30 mmol/L) 22 Anion Gap (5 - 16) 9 BUN (7 - 17 mg/dL) 17 Creatinine (0.5 - 1.0 mg/dL) 0.6 Estimated GFR (>60 ml/min) > 60 BUN/Creatinine Ratio (7 - 25 %) 28.3 H Hematology CBC w Diff NO MAN DIFF REQ WBC (4.8 - 10.8 /CUMM) 7.1 RBC (4.20 - 5.40 /CUMM) 3.35 L Hgb (12.0 - 16.0 G/DL) 10.4 L Hct (37 - 47 %) 30.6 L MCV (81.0 - 99.0 FL) 91.3 MCH (27.0 - 31.0 PG) 31.1 H RDW (11.5 - 14.5 %) 14.3 Plt Count (130 - 400 /CUMM) 125 L MPV (7.4 - 10.4 FL) 10.5 H Gran % (42.2 - 75.2 %) 79.1 H Lymphocytes % (20.5 - 51.1 %) 14.5 L Monocytes % (1.7 - 9.3 %) 5.5 Eosinophils % (0 - 5 %) 0.6 Basophils % (0.0 - 2.0 %) 0.3 Absolute Granulocytes (1.4 - 6.5 /CUMM) 5.6 Absolute Lymphocytes (1.2 - 3.4 /CUMM) 1.0 L Absolute Monocytes (0.10 - 0.60 /CUMM) 0.4 Absolute Eosinophils (0.0 - 0.7 /CUMM) 0 Absolute Basophils (0.0 - 0.2 /CUMM) 0 PUBS MCHC (33.0 - 37.0 G/DL) 34.0 A/P; 51 y/o F with pmh sig for diabetes, hypertension, arthritis, reactive airway disease, admitted to ICU initially with the sepsis of urological origin as well as acute pyelonephritis. Currently patient is treated with Cipro and followed by infectious disease. Patient is also seen by endocrinology for her diabetes and hyperglycemia. We'll try to taper her oxygen. Continue current insulin regimen and follow endocrine recommendations. Patient did have a fever spike at a low-grade 100 this morning and last night. Contineu other currents meds. DVT px: Hep sq. Possible DC in am..
[2016-10-17 14:05] VITALS: BP 145/60
[2016-10-17 22:28] VITALS: BP 140/62
[2016-10-18 06:49] VITALS: BP 138/72
--- NOTE | 2016-10-18 07:58 | PN- Housestaff ---
KP VALENZUELA,ENRIQUE 10/18/16 0758: Subjective Follow-up For: Sepsis of urological origin Complaints: no complaints Subjective: I followed up and examined the patient today. She is resting comfortably in her chair, does not appear to be in distress, well she uses nasal cannula for additional oxygen intermittently. She has no complaints, vitals have been stable, no overnight issues. Review of Systems Constitutional: Reports: no symptoms. Objective Last 24 Hrs of Vital Signs/I&O Vital Signs Date Time Temp Pulse Resp B/P B/P Pulse O2 O2 Flow FiO2 Mean Ox Delivery Rate 10/18 1645 93 Room Air 10/18 1410 98.5 98 18 138/60 93 / 0802 95 Room Air Room Air 10/18 0800 94 Nasal 1.0L Cannula 10/18 0649 98.5 90 20 138/72 94 Room Air 10/18 0023 82 97 / 0000 Nasal 1.0L Cannula 10/17 2302 99 97 10/17 2228 99.1 75 20 140/62 96 Nasal Cannula Intake & Output 10/18 1600 10/18 0800 06/ 0000 Intake Total 600 300 600 Output Total Balance 600 300 600 Intake, Oral 600 300 600 Physical Exam General Appearance: Alert, Oriented X3, Cooperative, No Acute Distress Other Physical Findings: Chest bilaterally clear, no wheezing, no crackles, rest of physical examination is within normal limits. She is saturating well without oxygen as well. Her ambulatory oxygen measurement is 93%. Current Medications: Current Medications Sig/Adam Start time Last Medication Dose Route Stop Time Status Admin Acetaminophen 650 MG .STK-MED ONE 10/18 0844 DC PO 10/18 0845 Acetaminophen 650 MG .STK-MED ONE 10/18 0056 DC PO 10/18 0057 Acetaminophen 325 MG Q6P PRN 10/15 1815 DCD PO Acetaminophen 650 MG Q4P PRN 10/15 1815 DCD 10/18 PO 0846 Albuterol Sulfate 3 ML EVERY 4 HRS/AWAKE 10/16 1200 DCD 10/18 INH 1645 Albuterol Sulfate 2 PUF Q6P PRN 10/14 2245 DCD 10/15 INH 0042 Amitriptyline HCl 75 MG AT BEDTIME 10/14 2345 DCD 10/17 PO 2134 Budesonide/ 2 PUF BID 10/14 2314 DCD 10/18 Formoterol Fumarate INH 0835 Ciprofloxacin 500 MG BID 10/15 1300 DCD 06/ PO 10/19 1259 0834 Diclofenac Sodium 1 BARBARA 4 TIMES/DAY 10/16 1400 DCD 10/18 TOP 0836 Heparin Sodium 5,000 UNIT Q8 10/15 0600 DCD 10/18 (Porcine) SC 0557 Ibuprofen 600 MG Q6P PRN 10/15 1815 DCD 10/18 PO 1203 Insulin Aspart 0 TIDAC/HS 10/15 1200 DCD 10/18 SC 1626 Insulin Detemir 40 UNITS BID 10/15 1000 DCD 10/18 SC 0834 Ondansetron HCl 4 MG Q6P PRN 10/14 2345 DCD 10/15 IV 0120 Polyethylene Glycol 17 GM DAILY 10/14 2345 DCD 10/17 PO 0857 Senna 187 MG AT BEDTIME 10/15 2200 DCD 10/17 PO 2136 Assessment/Plan Assessment: 51-year-old female with past medical history of type 2 diabetes uncontrolled, active smoker, hypertension, hyperlipidemia, was admitted to the ICU initially with chief complaint of lower back pain on the left side currently. She was being managed in the ICU for sepsis and of urologic origin, hypoxia, without an obvious cause. As see was stabilized, she was transferred to the general medical floor for continuity of treatment. She has Escherichia coli growing in her urine, and is being treated with ciprofloxacin, day 4 today, is asymptomatic , and her hypoxia has improved as well. Her resting and ambulatory pulse oximetry as above 90%. Of note, she does not use oxygen at home. Vitals have been stable, she is not in distress, thus she is scheduled to be discharged today with oral antibiotics ciprofloxacin for a total of 7 days, and adjustments with her home insulin and antidiabetic medication after discussion with Dr. Jay. No Metformin, and Glargine 40 U BID, and the current sliding scale for Humalog that she has at home, with follow up at Dr Jay's clinic in a week or earlier. Problem List: 1. UTI (urinary tract infection) 2. Pyelonephritis Pain Ratin Pain Location: - Pain Goal: Pain 4 or less Pain Plan: prn Tomorrow's Labs & Rationales: - PARVEEN ARRIAGA MD 10/18/16 5094: Attending MD Review Statement Attending Statement Attending MD Statement: examined this patient, discuss w/resident/PA/COMPILATION CLERK, agreed w/resident/PA/COMPILATION CLERK, reviewed EMR data (avail) Attending Assessment/Plan: 51F PMH HTN, T2DM, SEDA on CPAP admitted initially to ICU for sepsis secondary to left acute pyelonephritis with hypoxia secondary to reactive airway disease and SEDA. Patient feels better today, at baseline. Cultures growing Klebsiella sensitive to Cipro. Was on 2L NC over the weekend, but saturating 93% with ambulation on room air today. Afebrile, stable vitals, labs unremarkable. 1. Sepsis secondary to Klebsiella 2. Acute pyelonephritis 3. Hypoxia 4. SEDA Plan - Stable for discharge home - Continue Cipro to complete 7 day course - Follow up with pulmonary as outpatient for further workup of hypoxia - Continue home medications
--- NOTE | 2016-10-18 08:36 | PN- Diabetes ---
Assessment/Plan Assessment: Ms Erickson is a 51 yr old woman who has past medical history of uncontrolled DMn type 2, asthma, smoking hisotry, HTN, HLD and overweight. She came in with a chief concern of left sided back pain x one day. Her peak temperature was 104.8. She was admitted for acute pyelonephritis. However, patient vomited multiple times and had an episode of breathing difficulty and then she was transfered to ICU. She feels better and breathing improved. She was put on Levemir 40 units twice a day; Novolog before meals was adjusted. Her FSGs were 157, 168, 162, 255 and 165. Plan: continue the current insulin regimen; monitor FSGs; will follow. Subjective Subjective: She feels better. Currently she is receiving breathing treatment. Objective Last 24 Hrs of Vital Signs/I&O Vital Signs Date Time Temp Pulse Resp B/P B/P Pulse O2 O2 Flow FiO2 Mean Ox Delivery Rate 10/18 0802 95 Room Air Room Air 10/18 0649 98.5 90 20 138/72 94 Room Air / 0023 82 97 / 0000 Nasal 1.0L Cannula 10/17 2302 99 97 / 2228 99.1 75 20 140/62 96 Nasal Cannula / 1600 Nasal 0.5L Cannula 10/17 1550 97 Nasal 2.0L Cannula 10/17 1405 98.1 99 20 145/60 95 /04 1124 95 Nasal 2.0L Cannula Intake & Output 10/18 1600 /05 0800 06/05 0000 Intake Total 300 600 Output Total Balance 300 600 Intake, Oral 300 600
--- NOTE | 2016-10-18 11:58 | Patient Discharge Instructions ---
Discharge Instructions General Discharge Information You were seen/treated for: Sepsis of urologic origin; Urinary tract infection. Special Instructions: Please visit your primary care physician within 10 days of discharge. Please return to emergency if symptoms worsen. Diet Continue normal diet: No Recommended Diet: Diabetic Activity Full Activity/No Limits: Yes Activity Self Limited: Yes Acute Coronary Syndrome Inclusion Criteria At DC or during hospital stay patient has or had the following: ACS DIAGNOSIS No Discharge Core Measures Meds if any: Prescribed or Continued at Discharge Meds if any: NOT Prescribed or Continued at Discharge Congestive Heart Failure Inclusion Criteria At DC or during hospital stay patient has or had the following: CHF DIAGNOSIS No Discharge Core Measures Meds if any: Prescribed or Continued at Discharge Meds if any: NOT Prescribed or Continued at Discharge Cerebrovascular accident Inclusion Criteria At DC or during hospital stay patient has or had the following: CVA/TIA Diagnosis No Discharge Core Measures Meds if any: Prescribed or Continued at Discharge Meds if any: NOT Prescribed or Continued at Discharge Venous thromboembolism Inclusion Criteria VTE Diagnosis No VTE Type NONE VTE Confirmed by (Test) NONE Discharge Core Measures - Per Current guidelines, there needs to be overlap - treatment for the first 5 days of Warfarin therapy. - If discharged on Warfarin prior to 5 days of - overlap therapy, the patient will need to be - assessed for post discharge needs including - *Post discharge parental anticoagulation - *Warfarin and/or parental anticoagulation education - *Follow up date to check INR post discharge At least 5 days overlap therapy as Inpatient No Meds if any: Prescribed or Continued at Discharge Note: Overlap Therapy is Warfarin and Anticoagulant Meds if any: NOT Prescribed or Continued at Discharge
[2016-10-18] MEDS ORDERED: SENNA-TIME S T1 EACH PO (12:01)
[2016-10-18] MEDS ORDERED: CIPRO500 M1 PO (12:01)
[2016-10-18] MEDS ORDERED: MIRALAX119 GM PO (12:01)
[2016-10-18 14:10] VITALS: BP 138/60
[2016-10-18] MEDS ORDERED: LANTUS SOL100 UNIT/1 SC (16:03)
[2016-10-18] MEDS ORDERED: HUMALOG KW100 UNIT/1 SC (16:03)
--- NOTE | 2016-10-18 17:03 | PN- Infect Dx ---
Subjective Subjective: Afebrile without complaints Objective Last 24 Hrs of Vital Signs/I&O Vital Signs Date Time Temp Pulse Resp B/P B/P Pulse O2 O2 Flow FiO2 Mean Ox Delivery Rate 10/18 1645 93 Room Air 10/18 1410 98.5 98 18 138/60 93 / 0802 95 Room Air Room Air 10/18 0800 94 Nasal 1.0L Cannula 10/18 0649 98.5 90 20 138/72 94 Room Air 10/18 0023 82 97 06/ 0000 Nasal 1.0L Cannula 10/17 2302 99 97 10/17 2228 99.1 75 20 140/62 96 Nasal Cannula Intake & Output 10/18 1600 06 0800 06/ 0000 Intake Total 600 300 600 Output Total Balance 600 300 600 Intake, Oral 600 300 600 Physical Exam Other Physical Findings: She appears comfortable in no acute distress Lungs are clear Heart regular rhythm with no murmur Abdomen is soft, nontender with positive bowel sounds Back no CVA tenderness Results Last 24 Hours of Lab Results: No labs from today Last 24 Hours of Scar Results: No recent cultures Assessment/Plan Impression: Doing well with temperatures and white blood cell count now normal on Ciprofloxacin Day 4 of treatment for Escherichia coli sepsis of urologic origin. Suggestion: 1. Continue Ciprofloxacin to complete a 7 day course of treatment
--- NOTE | 2016-10-20 17:28 | Discharge Summary ---
Visit Information Visit Dates Admission Date: 10/14/16 Discharge Date: 10/18/16 Hospital Course Course Attending Physician: NICO THOMASON M.D, MD, DENISSE Primary Care Physician: PEDRO PABLO [facility] Course: 51-year-old female with past medical history of type 2 diabetes uncontrolled, active smoker, hypertension, hyperlipidemia, SEDA on CPAP, was admitted to the ICU initially with chief complaint of lower back pain on the left side. Sepsis of urologic origin/ E coli sepsis: She was initially managed in the ICU for sepsis of urologic origin, pyelonephritis, and hypoxia, without an obvious cause. As she was stabilized, she was then transferred to the general medical floor for rest of her treatment. She had Escherichia coli growing in her urine , and was treated with ciprofloxacin, day 4 on the day of discharge. Hypoxia: She was asymptomatic, and her hypoxia improved as well. Her resting and ambulatory pulse oximetry as above 90%. Vitals have been stable, she was not in distress, and the decision to discharge with oral antibiotic ciprofloxacin for a total of 7 days was made. Diabetes mellitus: Endocrinology was consulted with Dr Aguilar and adjustments with her home insulin and antidiabetic medication Metformin stopped after discussion with Dr. Aguilar at discharge. Plan: No Metformin, and Glargine 40 U BID, and the sliding scale that was used for NovoLog while in the hospital will be used for Humalog that she has at home, and needs to follow up at Dr Aguilar's clinic in a week or earlier. Patient was explained about the change, understands, and agrees to the plan. Allergies: Coded Allergies: cephalexin (From KEFLEX) (THROAT CLOSES AND SWELLS 10/14/16) clindamycin (HIVES 10/14/16) Disposition Summary Disposition Principal Diagnosis: Sepsis of Urologic origin, E. coli Additional Diagnosis: Type 2 diabetes uncontrolled, active smoker, hypertension, hyperlipidemia, SEDA on CPAP. Discharge Disposition: home or self care Discharge Instructions General Discharge Information Code Status: Full Code Patient's Diet: Diabetic diet Patient's Activity: As tolerated Follow-Up Instructions/Appts: Please visit your primary care physician within 10 days of discharge. Please follow the instructions for changed insulin dosage. You have been explained about the dosage. Please call us or Dr Aguilar's clinic (endocrinology) if you have any questions. Also, please follow up with Dr Aguilar with blood sugar readings. Please return to emergency if symptoms worsen. Medications at Discharge Discharge Medications: Stop taking the following medications: Insulin Glargine,Hum.rec.anlog (Lantus Solostar) 100 UNIT/ML (3 ML) INSULN.PEN Inject into fatty tissue Every night Qty = 30 Metformin HCl (Metformin HCl) 1,000 MG TABLET ORAL TWICE DAILY Qty = 180 Continue taking these medications: Dulaglutide (Trulicity) 1.5 MG/0.5 ML PEN.INJCTR 1.5 Milligram Inject into fatty tissue EVERY TUESDAY Qty = 2 Comments: Last Taken:NOT GIVEN IN HOSPITAL Time: Albuterol Sulfate (Proair Hfa) 90 MCG HFA.AER.AD 2 Puff Inhale through mouth Q6H as needed for ASTHMA Qty = 9 Comments: Last Taken:10/15/16 Time:1230 AM Tramadol HCl (Tramadol HCl) 50 MG TABLET 1 Tablet ORAL Every night Qty = 40 Comments: Last Taken:NOT GIVEN IN HOSPITAL Time: Amitriptyline HCl (Amitriptyline HCl) 75 MG TABLET 1 Tablet ORAL TAKE AT BEDTIME Qty = 30 Comments: Last Taken:10/17/16 Time:930 PM Budesonide/Formoterol Fumarate (Symbicort 80-4.5 Mcg Inhaler) 80 MCG-4.5 MCG/ ACTUATION HFA.AER.AD 2 Puff Inhale through mouth TWICE DAILY Qty = 10 Comments: Last Taken:10/18/16 Time:0830 Ergocalciferol (Vitamin D2) (Vitamin D2) 50,000 UNIT CAPSULE 1 Capsule ORAL EVERY TUESDAY Qty = 12 Comments: Last Taken:NOT GIVEN IN HOSPITAL Time: Start taking the following new medications: Ciprofloxacin HCl (Cipro) 500 MG TABLET 500 Milligram ORAL TWICE DAILY Qty = 7 No Refills Comments: Last Taken:10/18/16 Time:0830 Polyethylene Glycol 3350 (Miralax) 17 GRAM/DOSE POWDER 17 Gram ORAL DAILY as needed for CONSTIPATION Qty = 15 No Refills Comments: Last Taken:10/17/16 Time:0900 Sennosides/Docusate Sodium (Senna-Time S Tablet) 8.6 MG-50 MG TABLET 187 Milligram ORAL AT BEDTIME as needed for CONSTIPATION Qty = 15 No Refills Comments: Last Taken:10/17/16 Time:930 PM The following medications have been changed: Old: Insulin Lispro (Humalog Kwikpen U-100) 100 UNIT/ML INSULN.PEN Units Inject into fatty tissue BEFORE MEALS AND AT BEDTIME Qty = 15 New: Insulin Lispro (Humalog Kwikpen U-100) 100 UNIT/ML INSULN.PEN 0 Inject into fatty tissue BEFORE MEALS AND AT BEDTIME Days = 30 Instructions: BEFORE MEALS Blood Insulin Sugar Units <80 0 81-150 6 151-200 8 201-250 10 251-300 12 301-350 14 351-400 16 >400 GIVE 18 UNITS AND CALL DOCTOR AT BEDTIME Blood Insulin Sugar Units <80 0 81-100 0 101-200 0 201-250 2 251-300 4 301-350 6 351-400 7 >400 TAKE 8 AND CALL YOUR DOCTOR Comments: Last Taken:10/18/16 Time:1630 Old: Insulin Glargine,Hum.rec.anlog (Lantus Solostar) 100 UNIT/ML (3 ML) INSULN.PEN 50 Units Inject into fatty tissue Every Morning New: Insulin Glargine,Hum.rec.anlog (Lantus Solostar) 100 UNIT/ML (3 ML) INSULN.PEN 40 Units Inject into fatty tissue TWICE DAILY Days = 30 Comments: Last Taken:10/18/16 Time:0830 [facility]; GUERLINE AGUILAR MD
== END 2016-10-18 17:31 | DRG 871 ==
LOC: ERH 16:49 → 2NA 20:40 → ERHI 20:40 → CRI 20:40 → ENRESERV 23:10 → CRI 10-15 01:15 → 2NA 10-15 01:16 → CRI 10-15 05:17 → 2NA 10-16 19:30 → ENPENDDIS 10-18 14:48 → 2NA 10-18 17:31
PROVIDERS: Dermatology; Emergency Medicine; Internal Medicine; Student in an Organized Health Care Education/Training Program; ADMIT Internal Medicine
PROC: 5A09457 Assistance with Respiratory Ventilation, 24-96 Consecutive Hours, Continuous Positive Airway Pressure (ICD-10-PCS; principal; 2016-10-15)
DX: A41.51 Sepsis due to Escherichia coli [E. coli] (principal); J96.01 Acute respiratory failure with hypoxia; N10 Acute pyelonephritis; F17.200 Nicotine dependence, unspecified, uncomplicated; E11.9 Type 2 diabetes mellitus without complications; Z79.4 Long term (current) use of insulin; I10 Essential (primary) hypertension; E78.5 Hyperlipidemia, unspecified; J45.909 Unspecified asthma, uncomplicated; G47.33 Obstructive sleep apnea (adult) (pediatric); K58.9 Irritable bowel syndrome, unspecified
CPT/HCPCS: 2NASP; CCU; ERO; 36415; 74176; 80307; 81001; 81025; 82436; 87040; 87086; 87449; 87450; 93005; 93010; 96361; 96374; 96375; 99291; J0131; J0744; J1644; J1815; J1885; J2280; J2405; J3250; J3490; J7060

== ENCOUNTER 2016-11-01 22:26 | Inpatient (IN) | payer OTHER ==
[~2016-11-01] VITALS: Ht 170.2 cm; Wt 123.8 kg
[~2016-11-01 22:26] MED LIST changes: +AMITRIPTYLINE H75 M2 PO; +CIPRO500 M1 PO; +HUMALOG KW100 UNIT/1 SC; +LANTUS SOL100 UNIT/1 SC; +METFORMIN HCL1000 M1 PO; +MIRALAX119 GM PO; +PROAIR HFA8.5 GM INH; +SENNA-TIME S T1 EACH PO; +SYMBICORT 80-10.2 GM INH; +TRAMADOL HCL50 M1 PO; +TRULICITY1.5 MG/0.5 SC; +VITAMIN D250000 UNIT PO
--- NOTE | 2016-11-01 22:31 | NUR ---
PT TO TRIAGE WITH C/0 FEVER, R FLANK PAIN 01/23, N/V. SYMPTOMS ARE THE SAME 2 WEEKS AGO WHEN PT WAS ADMITTED TO [place] FOR KIDNEY INFECTION. TEMP 101.7 IN TRIAGE.
--- NOTE | 2016-11-01 22:38 | NUR ---
PT TO ROOM 10 VIA WHEELCHAIR AT THIS TIME. C/O NAUSEA, NO ACTIVE VOMITING.
--- NOTE | 2016-11-01 22:59 | ED GENERAL ADULT ---
History of Present Illness General Chief Complaint: Female Urogenital Problems Stated Complaint: ?KIDNEY INFECION PER PT Source: patient, family, old records Exam Limitations: clinical condition Vital Signs & Intake/Output Vital Signs & Intake/Output Vital Signs Date Time Temp Pulse Resp B/P B/P Pulse O2 O2 Flow FiO2 Mean Ox Delivery Rate 11/02 0107 101.0 112 18 114/49 96 Room Air 11/02 0026 102.5 11/01 2353 102.5 11/01 2245 105.2 11/01 2238 Room Air 11/01 2230 101.7 114 22 179/71 98 Room Air ED Intake and Output 11/02 0000 11/01 1200 Intake Total 1000 Output Total Balance 1000 Intake, IV 1000 Patient 278 lb Weight Weight Reported by Patient Measurement Method Allergies Coded Allergies: cephalexin (From KEFLEX) (THROAT CLOSES AND SWELLS 10/14/16) clindamycin (HIVES 10/14/16) Reconcile Medications Albuterol Sulfate (Proair Hfa) 90 MCG HFA.AER.AD 2 PUF INH Q6H PRN ASTHMA ( Reported) Amitriptyline HCl 75 MG TABLET 1 TAB PO QHS MIGRAINES (Reported) Budesonide/Formoterol Fumarate (Symbicort 80-4.5 Mcg Inhaler) 80 MCG-4.5 MCG/ ACTUATION HFA.AER.AD 2 PUF INH BID ASTHMA (Reported) Ciprofloxacin HCl 750 MG TABLET 1 TAB PO BID Infection . Dulaglutide (Trulicity) 1.5 MG/0.5 ML PEN.INJCTR 1.5 MG SC QMON DM (Reported) Ergocalciferol (Vitamin D2) (Vitamin D2) 50,000 UNIT CAPSULE 1 CAP PO QWED SUPPLEMENT (Reported) Insulin Glargine,Hum.rec.anlog (Lantus Solostar) 100 UNIT/ML (3 ML) INSULN.PEN 40 U SC BID DM Insulin Lispro (Humalog Kwikpen U-100) 100 UNIT/ML INSULN.PEN 0 SC TIDAC/HS DM BEFORE MEALS Blood Insulin Sugar Units <80 0 81-150 6 151-200 8 201-250 10 251-300 12 301-350 14 351-400 16 >400 GIVE 18 UNITS AND CALL DOCTOR AT BEDTIME Blood Insulin Sugar Units <80 0 81-100 0 101-200 0 201-250 2 251-300 4 301-350 6 351-400 7 >400 TAKE 8 AND CALL YOUR DOCTOR Polyethylene Glycol 3350 (Miralax) 17 GRAM/DOSE POWDER 17 GM PO DAILY PRN CONSTIPATION Sennosides/Docusate Sodium (Senna-Time S Tablet) 8.6 MG-50 MG TABLET 187 MG PO AT BEDTIME PRN CONSTIPATION Tramadol HCl 50 MG TABLET 1 TAB PO QPM PAIN (Reported) Triage Note: PT TO TRIAGE WITH C/0 FEVER, R FLANK PAIN 01/23, N/V. SYMPTOMS ARE THE SAME 2 WEEKS AGO WHEN PT WAS ADMITTED TO [place] FOR KIDNEY INFECTION. TEMP 101.7 IN TRIAGE. Triage Nurses Notes Reviewed? yes Onset: TODAY Duration: hour(s):, changing over time, continues in ED, getting worse Severity: severe HPI: Patient presents for evaluation of fever and chills and right flank and low back pain. Evaluation was recently discharged from the [facility] emergency Department after being treated for a severe kidney infection. Patient states her symptoms are similar to that infection. Past History Travel History Traveled to [facility] past 21 day No Medical History Any Pertinent Medical History? 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 Hx Contributory? No Review of Systems Review of Systems Constitutional: Reports: no symptoms. EENTM: Reports: no symptoms. Respiratory: Reports: no symptoms. Cardiovascular: Reports: no symptoms. GI: Reports: no symptoms. Genitourinary: Reports: no symptoms. Musculoskeletal: Reports: no symptoms. Skin: Reports: no symptoms. Neurological/Psychological: Reports: no symptoms. Hematologic/Endocrine: Reports: no symptoms. Immunologic/Allergic: Reports: no symptoms. All Other Systems: Reviewed and Negative Physical Exam Physical Exam General Appearance: SEE BELOW Core Measures ACS in differential dx? No CVA/TIA Diagnosis: No Severe Sepsis Present: No Septic Shock Present: No Progress Differential Diagnoses I considered the following diagnoses in my evaluation of the patient: Pyelonephritis, pneumonia, bacteremia Plan of Care: Orders Procedure Date/time Status Patient Data 11/02 0125 Active Admit to inpatient 11/02 012 Active CULTURE,URINE 11/01 2257 Active BLOOD CULTURE 11/01 2257 Active URINALYSIS 11/01 2257 Complete LACTIC ACID 11/01 2257 Complete COMPREHENSIVE METABOLIC PANEL 11/01 2257 Complete CBC WITHOUT DIFFERENTIAL 11/01 2257 Complete Current Medications Sig/Adam Start time Last Medication Dose Stop Time Status Admin Trimethoprim/ 25 ML ONCE ONE 11/02 0030 AC 11/02 Sulfamethoxazole 11/02 228 0107 (Bactrim) Dextrose/Water 500 ML (D5W) Trimethoprim/ 10 ML Q6 11/01 2358 CAN Sulfamethoxazole (Bactrim) Moxifloxacin HCl 400 MG ONCE ONE 11/01 234 CAN (Avelox) 11/01 2346 Laboratory Tests 11/01/16 2320: Urinalysis LIGHT H, Urine Color YEL, Urine Clarity HAZY H, Urine pH 6.0, Ur Specific Locust 1.015, Urine Protein 100 H, Urine Ketones NEG, Urine Nitrite POS H, Urine Bilirubin NEG, Urine Urobilinogen 0.2, Ur Leukocyte Esterase SMALL H, Ur Microscopic SEDIMENT EXAMINED, Urine RBC 1-3, Urine WBC 15-25 H, Ur Epithelial Cells FEW, Urine Bacteria RARE H, Urine Mucus FEW, Urine Hemoglobin MOD H, Urine Glucose 500 H 11/01/16 2308: Anion Gap 14, Estimated GFR > 60, BUN/Creatinine Ratio 28.8 H, Glucose 287 H, Lactic Acid 1.9, Calcium 10.2, Total Bilirubin 1.2, AST 48 H, ALT 73 H, Alkaline Phosphatase 136 H, Total Protein 8.4 H, Albumin 4.5, Globulin 3.9, Albumin/Globulin Ratio 1.2, CBC w Diff NO MAN DIFF REQ, RBC 3.92 L, MCV 91.7, MCH 30.4, RDW 15.5 H, MPV 9.6, Gran % 93.1 H, Lymphocytes % 6.1 L, Monocytes % 0.2 L, Eosinophils % 0.4, Basophils % 0.2, Absolute Granulocytes 12.4 H, Absolute Lymphocytes 0.8 L, Absolute Monocytes 0 L, Absolute Eosinophils 0.1, Absolute Basophils 0, PUBS MCHC 33.1 Microbiology 11/02 2331 BLOOD: Blood Culture - RECD 11/01 2329 BLOOD: Blood Culture - RECD 11/02 2319 URINE ROUT: Urine Culture - RECD Diagnostic Imaging: Discussed w/RAD: CT Scan. Radiology Impression: PATIENT: RAOUL JIM PRESENT AGE: 51 PATIENT ACCOUNT NO: [id number] : 64 LOCATION: [facility] ORDERING PHYSICIAN: PENNIE HALL MD SERVICE DATE: 11/01/16 EXAM TYPE: CAT - CT ABD & PELVIS W/O IV CONTRAS; CT CHEST WO IV CONTRAST EXAM: NONCONTRAST CT OF THE CHEST; NONCONTRAST CT OF THE ABDOMEN AND PELVIS INDICATION: Right- sided pain, chills COMPARISON: 10/14/2016 TECHNIQUE: No IV contrast was utilized. Multidetector helical imaging was performed through the chest, abdomen , and pelvis. Coronal and sagittal reformatted images were created at the technologist workstation. DLP: 1545.51 mGy-cm FINDINGS: Chest: The lungs are clear bilaterally without evidence of consolidation. There is a minor fissural nodule measuring 4 mm on image 232/1008, suggestive of a lymph node. No pneumothorax or pleural effusions. The visualized thyroid gland is unremarkable. There are subcentimeter mediastinal lymph nodes within the range of normal variation. Cardiac size is within normal limits. There is a small pericardial effusion. Coronary artery calcifications are present. No axillary lymphadenopathy is present.. Abdomen/Pelvis: Hepatomegaly is again noted. No intrahepatic biliary ductal dilatation is seen. There is a subcentimeter low- density lesion in the liver on image 48/126, too small to characterize. Patient is status post cholecystectomy. The unenhanced spleen, pancreas, and adrenal glands are within normal limits. There is nonspecific bilateral perinephric stranding. No hydronephrosis bilaterally. No renal or ureteral calculi are present. The urinary bladder is unremarkable. The uterus and adnexa are unremarkable. The small and large bowel are unremarkable without evidence of obstruction or pericolonic inflammatory change. The appendix is unremarkable. No free fluid or free air is present. The unenhanced vascular structures are unremarkable. No retroperitoneal or pelvic lymphadenopathy is seen. Degenerative changes are noted in the spine. IMPRESSION: 1. Nonspecific bilateral perinephric stranding. Pyelonephritis remains a possibility, and correlation with urinalysis is advised. 2. No regions of pulmonary consolidation. 3. Small pericardial effusion. 4. Right minor fissural lung nodule measuring 4 mm, suggestive of a lymph node. DICTATED BY: KENNEDY DARNELL MD DATE/TIME DICTATED: 11/02/1638 NUCLEAR EQUIPMENT DESIGN ENGINEER:NISHA DATE/TIME TRANSCRIBED:11/02/1638 CONFIDENTIAL, DO NOT COPY WITHOUT APPROPRIATE AUTHORIZATION. <Electronically signed in Other Vendor System> SIGNED BY: KNENEDY DARNELL MD 11/02/16 0110 Initial ED EKG: none Comments: Patient has a cephalosporin allergy making the usual antibiotics for urinary tract infection/Jordan risky. Moxifloxacin ordered but I have canceled this as the patient may have grown out resistant organisms given her outpatient treatment with Cipro so recently. Bactrim IV ordered instead. 11/02/2016 1:44:06 AM I have updated the patient and her family on test results. I have already discussed her case with the hospitalist. Patient's fever is decreasing and she is currently sleeping with no apparent chills or rigors. Departure Departure Disposition: STILL A PATIENT Condition: Stable Clinical Impression Primary Impression: Pyelonephritis Referrals: VIVIANE CHAMORRO MD (PCP/Family) Departure Forms: Customer Survey General Discharge Information Prescriptions: Current Visit Scripts Ciprofloxacin HCl 1 TAB PO BID #20 TAB . Admission Note Spoke With: MARIBEL ESPINO [facility] Documentation of Exam: Documentation of any treatments & extenuating circumstances including Concerns Regarding Discharge (functional status, medication knowledge or non-compliance, living conditions, etc.) that warrant an admission rather than observation: Patient presented with shaking chills back pain and urinary tract signs and symptoms consistent with pyelonephritis. The patient had extremely high fever and also an elevated white blood cell count. Her symptoms have functionally disabled her that I feel she would therefore be a very poor candidate for outpatient management. She had a recent episode of pyelonephritis with bacteremia and sepsis and I feel this to makes her a poor outpatient candidate. She would likely return in worse clinical condition. I feel she is at very high risk of sepsis and mortality. I feel she requires hospitalization and aggressive management with IV fluids, IV antibiotics and close clinical monitoring. Culture results should be followed and treated accordingly. Infectious disease consultation should be considered given her recent treatment and the possibility of resistant organisms. I feel she'll require multiple day hospitalization. Critical Care Note Critical Care Note Critical Care Time: 30-74 min
[2016-11-01 23:15] LABS: ABSOLUTE BASOPHIL COUNT 0 /CUMM (0.0-0.2); ABSOLUTE EOSINOPHIL COUNT 0.1 /CUMM (0.0-0.7); ABSOLUTE GRANULOCYTE CT 12.4 /CUMM (1.4-6.5); ABSOLUTE LYMPH COUNT 0.8 /CUMM (1.2-3.4); ABSOLUTE MONOCYTE COUNT 0 /CUMM (0.10-0.60); BASOPHIL % 0.2 % (0.0-2.0); EOSINOPHIL % 0.4 % (0-5); GRANULOCYTE % 93.1 % (42.2-75.2); MEAN CORPUSCULAR HGB 30.4 PG (27.0-31.0); MEAN CORPUSCULAR HGB CONC 33.1 G/DL (33.0-37.0); MEAN CORPUSCULAR VOLUME 91.7 FL (81.0-99.0); MEAN PLATELET VOLUME 9.6 FL (7.4-10.4); PLATELET COUNT 234 /CUMM (130-400); RBC DISTRIBUTION WIDTH 15.5 % (11.5-14.5); RED BLOOD CELL CT 3.92 /CUMM (4.20-5.40); WHITE BLOOD CELL COUNT 13.3 /CUMM (4.8-10.8)
--- NOTE | 2016-11-01 23:23 | NUR ---
PT STRAIGHT CATH'D FOR URINE. URINE TRIO SENT TO LAB. 400 CCS CLEAR YELLOW URINE OBTAINED.
--- NOTE | 2016-11-01 23:34 | RADIOLOGY REPORT ---
EXAMINATION: XR PORTABLE CHEST CLINICAL INFORMATION: Chills. Cough. History of smoking. COMPARISON: Chest x-ray 10/15/2016. TECHNIQUE: Portable frontal view of the chest was obtained. 11:04 PM FINDINGS: Exam limited by body habitus. There is subtle haziness at the right lung base. This could be due to overlapping soft tissue density of the chest wall but patient did have a density infiltrate at the right lung base on the prior chest x-ray of 10/15/2016. Small residual infiltrate may still be present. The left lung is clear. No pleural effusion. No pulmonary vascular congestion. The cardiac and the mediastinal contours are normal. IMPRESSION: Question subtle right basilar infiltrate. Follow-up PA lateral view of chest would be helpful.
--- NOTE | 2016-11-01 23:52 | NUR ---
PT MEDICATED WITH [facility] PT REPORTS "ANXIETY." TOLERATED WELL. TEMP DOWN TO 102.5.
--- NOTE | 2016-11-01 23:56 | NUR ---
PT TO CAT SCAN AT THIS TIME.
--- NOTE | 2016-11-02 00:10 | NUR ---
PT BACK FROM CAT SCAN
--- NOTE | 2016-11-02 00:31 | NUR ---
PHARMACY CALLED, AWAITING MEDICATION.
--- NOTE | 2016-11-02 01:07 | NUR ---
IV BACTRIM INFUSING PER EMAR AT THIS TIME. PT TOLERATING WELL.
--- NOTE | 2016-11-02 01:10 | CT SCAN REPORT ---
EXAM: NONCONTRAST CT OF THE CHEST; NONCONTRAST CT OF THE ABDOMEN AND PELVIS INDICATION: Right-sided pain, chills COMPARISON: 10/14/2016 TECHNIQUE: No IV contrast was utilized. Multidetector helical imaging was performed through the chest, abdomen, and pelvis. Coronal and sagittal reformatted images were created at the technologist workstation. DLP: 1545.51 mGy-cm FINDINGS: Chest: The lungs are clear bilaterally without evidence of consolidation. There is a minor fissural nodule measuring 4 mm on image 232/1008, suggestive of a lymph node. No pneumothorax or pleural effusions. The visualized thyroid gland is unremarkable. There are subcentimeter mediastinal lymph nodes within the range of normal variation. Cardiac size is within normal limits. There is a small pericardial effusion. Coronary artery calcifications are present. No axillary lymphadenopathy is present.. Abdomen/Pelvis: Hepatomegaly is again noted. No intrahepatic biliary ductal dilatation is seen. There is a subcentimeter low-density lesion in the liver on image 48/126, too small to characterize. Patient is status post cholecystectomy. The unenhanced spleen, pancreas, and adrenal glands are within normal limits. There is nonspecific bilateral perinephric stranding. No hydronephrosis bilaterally. No renal or ureteral calculi are present. The urinary bladder is unremarkable. The uterus and adnexa are unremarkable. The small and large bowel are unremarkable without evidence of obstruction or pericolonic inflammatory change. The appendix is unremarkable. No free fluid or free air is present. The unenhanced vascular structures are unremarkable. No retroperitoneal or pelvic lymphadenopathy is seen. Degenerative changes are noted in the spine. IMPRESSION: 1. Nonspecific bilateral perinephric stranding. Pyelonephritis remains a possibility, and correlation with urinalysis is advised. 2. No regions of pulmonary consolidation. 3. Small pericardial effusion. 4. Right minor fissural lung nodule measuring 4 mm, suggestive of a lymph node.
--- NOTE | 2016-11-02 01:36 | History & Physical ---
VALENTIN VALENZUELA,[facility] 11/02/16 0135: General Information and HPI MD Statement: I have seen and personally examined RAOUL ERICKSON and documented this H&P. The patient is a 51 year old F who presented with a patient stated chief complaint of [right flank pain]. Source of Information: patient, family, old records Exam Limitations: no limitations History of Present Illness: Ms. Erickson is 51 year old female with past medical history significant for diabetes type 2, active smoker, COPD, hypertension, hyperlipidemia, obstructive sleep apnea on CPAP, migraine who was recently discharged on 10/20/16 after was treated for sepsis of urologic origin. Patient presented to the ED today complaining of right flank and lower back pain associated with fever and chills. History was obtained from the patient and her sons, according to them she started to complain of low back pain specifically on the right side since last night, associated with fever, chills. Patient denied any dysuria, hematuria, increased urinary frequency. Patient was discharged to finish a course of 7 days ciprofloxacin, compliant with medication. 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 Patient denied any pain or urinary symptoms at that time, denied anginal discharge. In ED patient started to have nausea, vomiting, hortness of breath, chronic cough, dizziness. Denied chest pain, palpitation, diarrhea or constipation, joint or muscle pain. Allergies/Medications Allergies: Coded Allergies: cephalexin (From KEFLEX) (THROAT CLOSES AND SWELLS 10/14/16) clindamycin (HIVES 10/14/16) Home Med list Albuterol Sulfate (Proair Hfa) 90 MCG HFA.AER.AD 2 PUF INH Q6H PRN ASTHMA ( Reported) Amitriptyline HCl 75 MG TABLET 1 TAB PO QHS MIGRAINES (Reported) Budesonide/Formoterol Fumarate (Symbicort 80-4.5 Mcg Inhaler) 80 MCG-4.5 MCG/ ACTUATION HFA.AER.AD 2 PUF INH BID ASTHMA (Reported) Dulaglutide (Trulicity) 1.5 MG/0.5 ML PEN.INJCTR 1.5 MG SC QMON DM (Reported) Ergocalciferol (Vitamin D2) (Vitamin D2) 50,000 UNIT CAPSULE 1 CAP PO QWED SUPPLEMENT (Reported) Insulin Glargine,Hum.rec.anlog (Lantus Solostar) 100 UNIT/ML (3 ML) INSULN.PEN 40 U SC BID DM Insulin Lispro (Humalog Kwikpen U-100) 100 UNIT/ML INSULN.PEN 0 SC TIDAC/HS DM BEFORE MEALS Blood Insulin Sugar Units <80 0 81-150 6 151-200 8 201-250 10 251-300 12 301-350 14 351-400 16 >400 GIVE 18 UNITS AND CALL DOCTOR AT BEDTIME Blood Insulin Sugar Units <80 0 81-100 0 101-200 0 201-250 2 251-300 4 301-350 6 351-400 7 >400 TAKE 8 AND CALL YOUR DOCTOR Polyethylene Glycol 3350 (Miralax) 17 GRAM/DOSE POWDER 17 GM PO DAILY PRN CONSTIPATION Sennosides/Docusate Sodium (Senna-Time S Tablet) 8.6 MG-50 MG TABLET 187 MG PO AT BEDTIME PRN CONSTIPATION Tramadol HCl 50 MG TABLET 1 TAB PO QPM PAIN (Reported) Past History Travel History Traveled to [place] past 21 day No Medical History Neurological: migraine EENT: allergies, sinusitis Cardiovascular: hypertension, hyperlipidemia Respiratory: asthma, obstructive sleep apnea Gastrointestinal: irritable bowel syndrome, pancreatitis Hepatic: NONE Renal: NONE Musculoskeletal: osteoarthritis Psychiatric: NONE Endocrine: diabetes Blood Disorders: NONE Cancer(s): NONE IGNITION EXPERT/Reproductive: NONE History of MRSA: No History of VRE: No History of CDIFF: No Surgical History Surgical History: cholecystectomy, CS X 2 R KNEE SURGERY SINUS SURGERY sinus surgery Past Family/Social History Family History Relations & Conditions if any MOTHER (kidney disease). Psychosocial History Who Do You Live With? spouse Services at Home: None Primary Language: Syrian Smoking Status: Current Everyday Smoker ETOH Use: denies use Functional Ability ADLs Independent: dressing, eating, toileting, bathing. Ambulation: independent, cane, walker IADLs Independent: shopping, housework, finances, food prep, telephone, transportation , medication admin. Review of Systems Review of Systems Constitutional: Reports: see HPI. Exam & Diagnostic Data Last 24 Hrs of Vital Signs/I&O Vital Signs Date Time Temp Pulse Resp B/P B/P Pulse O2 O2 Flow FiO2 Mean Ox Delivery Rate 11/02 0256 99.1 113 16 120/60 93 Room Air 11/02 0209 99.1 109 20 122/54 95 Room Air 11/02 0107 101.0 112 18 114/49 96 Room Air 11/02 0026 102.5 11/01 2353 102.5 11/01 2245 105.2 11/01 2238 Room Air 11/01 2230 101.7 114 22 179/71 98 Room Air Intake & Output 11/02 0800 11/02 0000 11/01 1600 Intake Total 1000 Output Total Balance 1000 Intake, IV 1000 Patient 123.831 kg 126.099 kg Weight Weight Reported by Patient Measurement Method Physical Exam General Appearance Alert, Oriented X3, Cooperative, Mild Distress Skin No Rashes, No Breakdown, No Significant Lesion Skin Temp/Moisture Exam: Warm/Dry Sepsis Skin Exam (color): Normal for Ethnicity HEENT Atraumatic, PERRLA, EOMI, dry mucous membrane Neck Supple, No JVD Lymphatic no cervical lymphadenopathy Cardiovascular Regular Rate, Normal S1, Normal S2, No Murmurs Lungs Clear to Auscultation, Normal Air Movement Abdomen Normal Bowel Sounds, Soft, No Tenderness, No Hepatospenomegaly, No Masses Neurological Normal Speech, Strength at 5/5 X4 Ext, Normal Tone, Sensation Intact, Cranial Nerves 3-12 NL, Reflexes 2+ Extremities No Clubbing, No Cyanosis, Normal Pulses, No Tenderness/Swelling, venous stasis skin changes, bilateral LE trace pedal edema Assessment/Plan Assessment: Ms. Erickson is 51 year old female with past medical history significant for diabetes type 2, active smoker, COPD, hypertension, hyperlipidemia, obstructive sleep apnea on CPAP, migraine who was recently discharged on 10/20/16 after was treated for sepsis of urologic origin. Patient presented to the ED today complaining of right flank and lower back pain associated with fever and chills. On admission Vital signs temperature 101.7, heart rate 114, blood pressure 179/71, RR 22 saturating 98% on room air wbc 13.3, H&H 11.9/36, platelet 234, sodium 134, potassium 4.4, BUN/creatinine 23/0.8, sugar 287, lactic acid 1.9, AST 48, ALT 73, alkaline phosphatase 56, UA positive for nitrate, leukocyte esterase, WBC 15-25, hemoglobin, glucose CT abdomen and chest without IV contrast IMPRESSION: 1. Nonspecific bilateral perinephric stranding. Pyelonephritis remains a possibility, and correlation with urinalysis is advised. 2. No regions of pulmonary consolidation. 3. Small pericardial effusion. 4. Right minor fissural lung nodule measuring 4 mm, suggestive of a lymph node. Problem list #Sepsis of urologic origin #UTI #Transaminitis #Hypertension/hyperlipidemia #Diabetes mellitus #COPD #Sleep obstructive apnea on CPAP #Sepsis of urologic origin -Admit to general medical floor -Patient presented with fever, tachycardia 114, tachypnea 22 and leukocytosis 15.3 with positive UA for UTI, CT findings suggestive for pyelonephritis -Patient was recently treated for Escherichia coli sensitive to ciprofloxacin, has an allergy from cephalosporin. Patient was started on Bactrim -Continue Bactrim every 8 Day#1 -Follow-up blood culture and urine culture -Vitals every shift -Pain pathway acetaminophen, Percocet, Dilaudid -Bowel movement regimen -CBC and BMP in a.m. -Patient denied any history of urinary stones, no evidence of stone in CT scan, no need for urology consultation at this point -Obtain ID consultation in a.m. -Follow-up liver function test, transaminitis mostly due to sepsis #Diabetes mellitus -Accu-Chek before meals and at bedtime -NovoLog sliding scale before meals -Continue home dose levemir 40 twice a day -We'll obtain endocrine consultation Dr. solorzano #History of COPD and SEDA on CPAP -Continue home nebs albuterol and Symbicort -TRC -Continue CPAP Code full Diet consistent carbohydrate 3 DVT prophylaxis Lovenox Consultation ID, endocrine As Ranked By This Provider Problem List: 1. UTI (urinary tract infection) 2. Pyelonephritis 3. SEDA on CPAP 4. Sepsis Core Measures/Miscellaneous Acute Coronary Syndrome ACS Diagnosis: No Cerebrovascular Accident CVA/TIA Diagnosis: No Congestive Heart Failure CHF Diagnosis: No VTE (View Protocol) VTE Risk Factors: Age > 40 No [facility] VTE prophylaxis d/t: No contraindications No VTE Pharm Prophylaxis d/t: No contraindications VTE Diagnosis: No VTE Type: NONE VTE Confirmed by (Test): NONE Sepsis (View Protocol) Severe Sepsis Present: No BC x2: Yes Lactic Acid x2: Yes IV ABX Broad Spectrum: Yes Septic Shock Septic Shock Present: No Miscellaneous Documentation Attending Case Discussed With: [facility]INO [facility] Primary Care Physician: JEANNA CHAMORRO [facility] Patient sees these Specialists Endocrinology, MACHINE TECH Level of Patient Care: General Medicine LUCI LILLY MD 11/02/16 0139: Resident Review Statement Resident Statement: examined this patient, discussed with internet site designer, agreed with internet site designer Other Findings: 51-year-old female with past medical history of type 2 diabetes, probable COPD, active smoker, hypertension, hyperlipidemia, SEDA on CPAP who presents with Rt sided flank and lower back pain x 1 day, fever of 101 at home assoc with nausea, vomiting and decreased appetite. She denies any urinary symptoms. Patient was discharged about 2 weeks ago when she presented with similar complaint an was found to have sepsis of urological origin and left sided pyelonephritis. Her urine and blood grew e.coli and she was treated with 7 days total of ciprofloxacin. However it seems the duration of treatment was not adequate as she returns now with left sided flank/low back pain. CT Abd/ Pelvis-Nonspecific bilateral perinephric stranding. Pyelonephritis remains a possibility, and correlation with urinalysis is advised. Vitals-T.Max 105.2/ OH 112, RR18, BP 114/49, 96 on RA Labs-WBC-13.3, H&H 11.9/36.0, Plt 234, Na 134, K 4.4, BUN 23, Creat 0.8, Gluc 287, ALT 48, ALP 136, AST 73, UA positive. CXR-Questionable right bailar infiltrate (this is not corroborated by Chest CT or physical exam) O/E-Obese patient, drowsy but arousable, dry mucous membranes, scattered wheezes on chest exam, Rt CVA tenderness, mild generalized abdominal tenderness, normal bowel sounds, 1+ pedal edema bilaterally Assessment -Sepsis of Urological Origin -Recurrent Pyelonephritis -Poorly controlled Type 2 DM -Hx of HTN -Hx of Hyperlipidemia -Active Smoker -SEDA on CPAP Plan Admit to GM IV Fluid hydration with normal saline Continue IV bactrim Q8hrs; started in the ED. ID consult in am Endo Consult in am Urine Culture Blood Cultures x 2 Fingerstick glucose TIDAC/HS Novolog SS + levemir insulin at her home dose Resume her home medications TRC evaluation Give supplemental O2 if needed Resume her CPAP/Autopap at night for SEDA Nicotine patch for smoking Please pastoral counselor her on smoking cessation prior to discharge Diabetic Diet SC lovenox for DVT ppx Pain Pathway ordered Note she does not have any statins or BP meds on her current med list. Please re-evaluate this and confirm from pharmacy in AM. KENZIE VALENZUELA, [facility] 11/02/16 0517: Attending MD Review Statement Attending Statement Attending MD Statement: examined this patient, discuss w/resident/PA/POULTRY HATCHERY MANAGER, agreed w/resident/PA/POULTRY HATCHERY MANAGER, discussed with family Attending Assessment/Plan: 51 yo morbidly obese F smoker, with h/o asthma/COPD, DM, HLD, SEDA on CPAP, recently admitted to [facility] (-10/18) for Ecoli sepsis/ pyelonephritis treated with Cipro for total of 7 days, returns today for c/o right flank pain, chills, nausea and vomiting. Chronic smoker's cough at baseline. Appetite poor over past 24 hours. Denies urinary frequency, dysuria or hematuria. No h/o nephrolithiasis or urological procedures. Tmax: 105.2, tachycardic to 110's, BP 120/60, sats 95% RA. Labs: WBC 13.3, BUN 23, glucose 287, lactic acid 1.9, AST 48, ALT 73. UA hazy, proteinuria, nitrite positive, small LE, WBC 15-25. CT CAP w/o contrast: bilateral perinephric stranding, possibly pyelonephritis, lung nodule, no consolidation. CXR: subtle right basilar infiltrate. 1. Sepsis of urological origin, pyelonephritis. GM admit, panculture, received Bactrim in ER, will continue IV Bactrim as pansensitive Ecoli from previous culture, pain management, IV fluids, trend lactic acid. ID consult. 2. Transaminitis 2/2 sepsis. Trend LFTs after adequate hydration. 3. Diabetes management. Endo consult. 4. SEDA/ COPD. Resume nocturnal CPAP. Provide TRC nebs, incentive spirometry. Smoking cessation counseling. DVT ppx Lovenox. Full code.
--- NOTE | 2016-11-02 01:49 | NUR ---
HOUSE STAFF AT BEDSIDE
--- NOTE | 2016-11-02 02:10 | NUR ---
PT BED ASSIGNMENT 230-1
--- NOTE | 2016-11-02 02:24 | NUR ---
REPORT GIVEN TO AMBROCIO CARRASCO
--- NOTE | 2016-11-02 02:47 | Admission Certification ---
Admission Certification Certification Statement - As attending physician, I certify that at the time of - admission, based on clinical presentation, severity of - symptoms, need for further diagnostic testing and - therapeutic interventions, and risk of adverse outcomes - without in-hospital treatment, in my clinical assessment, - this patient requires an acute hospital stay for a minimum - of two nights or longer. I have also considered psychsocial - factors such as support system, advanced age, financial - issues, cognitive issues, and failed out-patient treatments, - past re-admission history, safety of patient, and lack of - compliance as applicable. Specific rationale supporting this admission is: Sepsis, pyelonephritis, UTI.
[2016-11-02 02:56] VITALS: BP 120/60
--- NOTE | 2016-11-02 03:13 | NUR ---
PT ARRIVED TO FLOOR AT 0231 VIA STRETCHER. A&OX3, ON RA, LUNGS CLEAR NO DISTRESS. VSS, HR 113 DENIES CHEST PAIN. DENIES NAUSEA/VOMITTING. NO PAIN AT THIS TIME. SKIN INTACT. PT ORIENTED TO ROOM, CALL HALL AND STAFF. WILL CONTINUE TO MONITOR
[2016-11-02 06:45] VITALS: BP 120/60
--- NOTE | 2016-11-02 07:33 | Cons- Endocrinology ---
General Information and HPI Consulting Request Date of Consult: 11/02/16 Requested By: medical team Reason for Consult: uncontrolled diabetes Source of Information: patient, old records Exam Limitations: no limitations History of Present Illness: This 51-year-old woman with a known history of type 2 diabetes associated with morbid obesity came back to the hospital because of flank pain and fever. She was treated for pyelonephritis and released. She did finish a course of antibiotics at home. She states she did get a steroid injection in her knee which made her sugars become very high usually on Lantus 40 units twice a day as well as sliding scale NovoLog sliding with 6 units for 80-150 at home The patient also developed fever of flank pain and chills. About 2-3 weeks ago the patient was treated at the [facility] for urinary tract infection with Cipro. She completed a 7 day course of the medication. Now many of her symptoms are back. Allergies/Medications Allergies: Coded Allergies: cephalexin (From [employer]) (THROAT CLOSES AND SWELLS 10/14/16) clindamycin (HIVES 10/14/16) Home Med List: Albuterol Sulfate (Proair Hfa) 90 MCG HFA.AER.AD 2 PUF INH Q6H PRN ASTHMA ( Reported) Amitriptyline HCl 75 MG TABLET 1 TAB PO QHS MIGRAINES (Reported) Budesonide/Formoterol Fumarate (Symbicort 80-4.5 Mcg Inhaler) 80 MCG-4.5 MCG/ ACTUATION HFA.AER.AD 2 PUF INH BID ASTHMA (Reported) Ciprofloxacin HCl 750 MG TABLET 1 TAB PO BID Infection . Dulaglutide (Trulicity) 1.5 MG/0.5 ML PEN.INJCTR 1.5 MG SC QMON DM (Reported) Ergocalciferol (Vitamin D2) (Vitamin D2) 50,000 UNIT CAPSULE 1 CAP PO QWED SUPPLEMENT (Reported) Insulin Glargine,Hum.rec.anlog (Lantus Solostar) 100 UNIT/ML (3 ML) INSULN.PEN 40 U SC BID DM Insulin Lispro (Humalog Kwikpen U-100) 100 UNIT/ML INSULN.PEN 0 SC TIDAC/HS DM BEFORE MEALS Blood Insulin Sugar Units <80 0 81-150 6 151-200 8 201-250 10 251-300 12 301-350 14 351-400 16 >400 GIVE 18 UNITS AND CALL DOCTOR AT BEDTIME Blood Insulin Sugar Units <80 0 81-100 0 101-200 0 201-250 2 251-300 4 301-350 6 351-400 7 >400 TAKE 8 AND CALL YOUR DOCTOR Polyethylene Glycol 3350 (Miralax) 17 GRAM/DOSE POWDER 17 GM PO DAILY PRN CONSTIPATION Sennosides/Docusate Sodium (Senna-Time S Tablet) 8.6 MG-50 MG TABLET 187 MG PO AT BEDTIME PRN CONSTIPATION Tramadol HCl 50 MG TABLET 1 TAB PO QPM PAIN (Reported) Review of Systems Review of Systems Constitutional: Reports: chills, fever, malaise. Respiratory: Denies: short of breath. GI: Reports: abdominal pain. Skin: Reports: no symptoms. 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 Psychosocial History Where Do You Live? Home Who Do You Live With? spouse Services at Home: None Primary Language: Colombian Smoking Status: Current Everyday Smoker ETOH Use: denies use Functional Ability ADLs Independent: dressing, eating, toileting, bathing. Ambulation: independent, cane, walker IADLs Independent: shopping, housework, finances, food prep, telephone, transportation , medication admin. Exam & Diagnostic Data Last 24 Hrs of Vital Signs/I&O Vital Signs Date Time Temp Pulse Resp B/P B/P Pulse O2 O2 Flow FiO2 Mean Ox Delivery Rate 11/02 0645 98.5 100 22 120/60 93 BIPAP 11/02 0427 52 92 11/02 0256 99.1 113 16 120/60 93 Room Air 11/02 0209 99.1 109 20 122/54 95 Room Air 11/02 0107 101.0 112 18 114/49 96 Room Air 11/02 0026 102.5 11/01 2353 102.5 11/01 2245 105.2 11/018 Room Air 06/19 2230 101.7 114 22 179/71 98 Room Air Intake & Output 11/02 0800 11/02 0000 11/01 1600 Intake Total 550 1000 Output Total Balance 550 1000 Intake, IV 400 1000 Intake, Oral 150 Patient 273 lb 278 lb Weight Weight Reported by Patient Measurement Method Vital Signs Date Time Temp Pulse Resp B/P B/P Pulse O2 O2 Flow FiO2 Mean Ox Delivery Rate 11/02 0645 98.5 100 22 120/60 93 BIPAP 11/02 0427 52 92 11/02 0256 99.1 113 16 120/60 93 Room Air 11/02 0209 99.1 109 20 122/54 95 Room Air 11/02 0107 101.0 112 18 114/49 96 Room Air 11/02 0026 102.5 11/01 2353 102.5 11/01 2245 105.2 11/018 Room Air 11/01 223 101.7 114 22 179/71 98 Room Air Intake & Output 11/02 0800 11/02 0000 11/01 1600 Intake Total 550 1000 Output Total Balance 550 1000 Intake, IV 400 1000 Intake, Oral 150 Patient 273 lb 278 lb Weight Weight Reported by Patient Measurement Method Physical Exam General Appearance: comfortable, lethargic Head: normal appearance Eyes: Bilateral: normal appearance. Neck: normal inspection Cardiovascular: regular rate/rhythm Gastrointestinal: normal bowel sounds, soft Extremities: normal inspection Skin: intact Labs/Scar Results: Laboratory Tests 11/02 11/02 11/02 0700 0700 0158 Chemistry Sodium Pending Potassium Pending Chloride Pending Carbon Dioxide Pending Anion Gap Pending BUN Pending Creatinine Pending BUN/Creatinine Ratio Pending Lactic Acid Pending Cancelled Total Bilirubin Pending Direct Bilirubin Pending AST Pending ALT Pending Alkaline Phosphatase Pending Total Protein Pending Albumin Pending Hematology CBC w Diff Pending WBC Pending RBC Pending Hgb Pending Hct Pending MCV Pending MCH Pending RDW Pending Plt Count Pending MPV Pending PUBS MCHC Pending 11/01 11/01 2320 2308 Chemistry Sodium (137 - 145 mmol/L) 134 L Potassium (3.5 - 5.1 mmol/L) 4.4 Chloride (98 - 107 mmol/L) 98 Carbon Dioxide (22 - 30 mmol/L) 22 Anion Gap (5 - 16) 14 BUN (7 - 17 mg/dL) 23 H Creatinine (0.5 - 1.0 mg/dL) 0.8 Estimated GFR (>60 ml/min) > 60 BUN/Creatinine Ratio (7 - 25 %) 28.8 H Glucose (65 - 99 mg/dL) 287 H Lactic Acid (0.7 - 2.1 mmol/L) 1.9 Calcium (8.4 - 10.2 mg/dL) 10.2 Total Bilirubin (0.2 - 1.3 mg/dL) 1.2 AST (14 - 36 U/L) 48 H ALT (9 - 52 U/L) 73 H Alkaline Phosphatase (<127 U/L) 136 H Total Protein (6.3 - 8.2 g/dL) 8.4 H Albumin (3.5 - 5.0 g/dL) 4.5 Globulin (1.9 - 4.2 gm/dL) 3.9 Albumin/Globulin Ratio (1.1 - 2.2 %) 1.2 Hematology CBC w Diff NO MAN DIFF REQ WBC (4.8 - 10.8 /CUMM) 13.3 H RBC (4.20 - 5.40 /CUMM) 3.92 L Hgb (12.0 - 16.0 G/DL) 11.9 L Hct (37 - 47 %) 36.0 L MCV (81.0 - 99.0 FL) 91.7 MCH (27.0 - 31.0 PG) 30.4 RDW (11.5 - 14.5 %) 15.5 H Plt Count (130 - 400 /CUMM) 234 MPV (7.4 - 10.4 FL) 9.6 Gran % (42.2 - 75.2 %) 93.1 H Lymphocytes % (20.5 - 51.1 %) 6.1 L Monocytes % (1.7 - 9.3 %) 0.2 L Eosinophils % (0 - 5 %) 0.4 Basophils % (0.0 - 2.0 %) 0.2 Absolute Granulocytes (1.4 - 6.5 /CUMM) 12.4 H Absolute Lymphocytes (1.2 - 3.4 /CUMM) 0.8 L Absolute Monocytes (0.10 - 0.60 /CUMM) 0 L Absolute Eosinophils (0.0 - 0.7 /CUMM) 0.1 Absolute Basophils (0.0 - 0.2 /CUMM) 0 PUBS MCHC (33.0 - 37.0 G/DL) 33.1 Urines Urinalysis LIGHT H Urine Color (YEL,AMB,STR) YEL Urine Clarity (CLEAR) HAZY H Urine pH (5.0 - 8.0) 6.0 Ur Specific [place] (1.001 - 1.035) 1.015 Urine Protein (NEG,<30 MG/DL) 100 H Urine Ketones (NEG) NEG Urine Nitrite (NEG) POS H Urine Bilirubin (NEG) NEG Urine Urobilinogen (0.1 - 1.0 EU/dl) 0.2 Ur Leukocyte Esterase (NEG) SMALL H Ur Microscopic SEDIMENT EXAMINED Urine RBC (0 - 5 /HPF) 1-3 Urine WBC (0 - 2 /HPF) 15-25 H Ur Epithelial Cells (NONE,FEW) FEW Urine Bacteria (NEG/NONE) RARE H Urine Mucus (FEW,NONE) FEW Urine Hemoglobin (NEG) MOD H Urine Glucose (N MG/DL) 500 H Laboratory Tests 11/02 11/02 11/02 0700 0700 0158 Chemistry Sodium Pending Potassium Pending Chloride Pending Carbon Dioxide Pending Anion Gap Pending BUN Pending Creatinine Pending BUN/Creatinine Ratio Pending Lactic Acid Pending Cancelled Total Bilirubin Pending Direct Bilirubin Pending AST Pending ALT Pending Alkaline Phosphatase Pending Total Protein Pending Albumin Pending Hematology CBC w Diff Pending WBC Pending RBC Pending Hgb Pending Hct Pending MCV Pending MCH Pending RDW Pending Plt Count Pending MPV Pending PUBS MCHC Pending 11/01 11/01 2320 2308 Chemistry Sodium (137 - 145 mmol/L) 134 L Potassium (3.5 - 5.1 mmol/L) 4.4 Chloride (98 - 107 mmol/L) 98 Carbon Dioxide (22 - 30 mmol/L) 22 Anion Gap (5 - 16) 14 BUN (7 - 17 mg/dL) 23 H Creatinine (0.5 - 1.0 mg/dL) 0.8 Estimated GFR (>60 ml/min) > 60 BUN/Creatinine Ratio (7 - 25 %) 28.8 H Glucose (65 - 99 mg/dL) 287 H Lactic Acid (0.7 - 2.1 mmol/L) 1.9 Calcium (8.4 - 10.2 mg/dL) 10.2 Total Bilirubin (0.2 - 1.3 mg/dL) 1.2 AST (14 - 36 U/L) 48 H ALT (9 - 52 U/L) 73 H Alkaline Phosphatase (<127 U/L) 136 H Total Protein (6.3 - 8.2 g/dL) 8.4 H Albumin (3.5 - 5.0 g/dL) 4.5 Globulin (1.9 - 4.2 gm/dL) 3.9 Albumin/Globulin Ratio (1.1 - 2.2 %) 1.2 Hematology CBC w Diff NO MAN DIFF REQ WBC (4.8 - 10.8 /CUMM) 13.3 H RBC (4.20 - 5.40 /CUMM) 3.92 L Hgb (12.0 - 16.0 G/DL) 11.9 L Hct (37 - 47 %) 36.0 L MCV (81.0 - 99.0 FL) 91.7 MCH (27.0 - 31.0 PG) 30.4 RDW (11.5 - 14.5 %) 15.5 H Plt Count (130 - 400 /CUMM) 234 MPV (7.4 - 10.4 FL) 9.6 Gran % (42.2 - 75.2 %) 93.1 H Lymphocytes % (20.5 - 51.1 %) 6.1 L Monocytes % (1.7 - 9.3 %) 0.2 L Eosinophils % (0 - 5 %) 0.4 Basophils % (0.0 - 2.0 %) 0.2 Absolute Granulocytes (1.4 - 6.5 /CUMM) 12.4 H Absolute Lymphocytes (1.2 - 3.4 /CUMM) 0.8 L Absolute Monocytes (0.10 - 0.60 /CUMM) 0 L Absolute Eosinophils (0.0 - 0.7 /CUMM) 0.1 Absolute Basophils (0.0 - 0.2 /CUMM) 0 PUBS MCHC (33.0 - 37.0 G/DL) 33.1 Urines Urinalysis LIGHT H Urine Color (YEL,AMB,STR) YEL Urine Clarity (CLEAR) HAZY H Urine pH (5.0 - 8.0) 6.0 Ur Specific [place] (1.001 - 1.035) 1.015 Urine Protein (NEG,<30 MG/DL) 100 H Urine Ketones (NEG) NEG Urine Nitrite (NEG) POS H Urine Bilirubin (NEG) NEG Urine Urobilinogen (0.1 - 1.0 EU/dl) 0.2 Ur Leukocyte Esterase (NEG) SMALL H Ur Microscopic SEDIMENT EXAMINED Urine RBC (0 - 5 /HPF) 1-3 Urine WBC (0 - 2 /HPF) 15-25 H Ur Epithelial Cells (NONE,FEW) FEW Urine Bacteria (NEG/NONE) RARE H Urine Mucus (FEW,NONE) FEW Urine Hemoglobin (NEG) MOD H Urine Glucose (N MG/DL) 500 H Assessment/Plan Assessment/Plan This 51-year-old woman who was recently treated for pyelonephritis. She now presents with right-sided abdominal discomfort and right flank discomfort and fever. Liver tests have become elevated. CT scan reveals hepatomegaly and the patient is status post cholecystectomy. The patient's insulin I would reduce her Levemir to 36 units twice a day. Sliding-scale NovoLog before meals should be 80-150 give 4 units NovoLog, 151- 200 give 6 units NovoLog, 201-250 give 8 units NovoLog, 251-300 give 9 units NovoLog, 301-350 give 10 units NovoLog, 351-400 give 11 units NovoLog. A separate sliding-scale NovoLog to be written for bedtime. Sliding-scale NovoLog at bedtime should be less than 250 give no insulin, 251-300 give 2 units NovoLog 301-350 give 3 units NovoLog, 351-400 give 4 units NovoLog. Patient's of attention to be repeated along with amylase and lipase. Await culture results. Consult Acknowledgment - Thank you for your consult request.
[2016-11-02 08:27] LABS: ABSOLUTE BASOPHIL COUNT 0 /CUMM (0.0-0.2); ABSOLUTE EOSINOPHIL COUNT 0 /CUMM (0.0-0.7); ABSOLUTE GRANULOCYTE CT 14.3 /CUMM (1.4-6.5); ABSOLUTE LYMPH COUNT 0.9 /CUMM (1.2-3.4); ABSOLUTE MONOCYTE COUNT 0.6 /CUMM (0.10-0.60); BASOPHIL % 0.1 % (0.0-2.0); EOSINOPHIL % 0.2 % (0-5); GRANULOCYTE % 89.9 % (42.2-75.2); HEMATOCRIT 33.4 % (37-47); MEAN CORPUSCULAR HGB 30.8 PG (27.0-31.0); MEAN CORPUSCULAR HGB CONC 33.4 G/DL (33.0-37.0); MEAN CORPUSCULAR VOLUME 92.4 FL (81.0-99.0); MEAN PLATELET VOLUME 11.4 FL (7.4-10.4); PLATELET COUNT 164 /CUMM (130-400); RBC DISTRIBUTION WIDTH 15.1 % (11.5-14.5); RED BLOOD CELL CT 3.62 /CUMM (4.20-5.40); WHITE BLOOD CELL COUNT 15.9 /CUMM (4.8-10.8)
--- NOTE | 2016-11-02 10:47 | PN- Housestaff ---
Objective Last 24 Hrs of Vital Signs/I&O Vital Signs Date Time Temp Pulse Resp B/P B/P Pulse O2 O2 Flow FiO2 Mean Ox Delivery Rate 11/02 1045 102.4 11/02 0925 95 Room Air 11/02 0919 Room Air 11/02 0645 98.5 100 22 120/60 93 BIPAP 11/02 0427 52 92 11/02 0256 99.1 113 16 120/60 93 Room Air 11/02 0209 99.1 109 20 122/54 95 Room Air 11/02 0107 101.0 112 18 114/49 96 Room Air 11/02 0026 102.5 11/01 2353 102.5 11/01 2245 105.2 11/01 2238 Room Air 11/01 2230 101.7 114 22 179/71 98 Room Air Intake & Output 11/02 1600 11/02 0800 11/02 0000 Intake Total 550 1000 Output Total Balance 550 1000 Intake, IV 400 1000 Intake, Oral 150 Patient 123.831 kg 126.099 kg Weight Weight Reported by Patient Measurement Method
--- NOTE | 2016-11-02 11:34 | Event Note ---
Event Note Event Note: Situation Rapid response at 11:30am for being febrile and tachycardic. Brief patient is a 51 YO F with PMH significant for Diabetes (insulin dependent), HTN, HLD (not on medications), presented with second episode of pyelonephritis in this month. She was given a single dose of Bactrim in ER yesterday. During her previous admission she was transferred to ICU for 1 day due to hypoxia (unclear etiology). Today patient started to shiver, nauseous and spiked fever of 102.2, desaturated to 84% on roomair. Fluids running at bedside @100ml/hr Blood cultures positive for Gram negative rods VS Tem 102.4, BP 190/90mmHg, Pulse 124, saturation 84% on room air. O/E alert and oriented X 3, shivering and mumbling. Heart - S1,S2 normal with a murmur chest - normal breath sounds with decreased breath sounds at bases Neuro - able to move all the four extrmeities Assessment and plan Acute decompensation in the setting of sepsis secondary to pyelonephritis * started on supplemental oxygen with 2L NC * Check EKG, CXR * A single dose of meropenem stat given along with IV Tylenol and IM Tigan for fever and nausea * transfered to ICU for closer monitoring * ID consult placed in am - please follow up with recommendations.
--- NOTE | 2016-11-02 12:35 | RADIOLOGY REPORT ---
EXAMINATION: XR PORTABLE CHEST CLINICAL INFORMATION: Shortness of breath, fever, chills. Urinary infection. Desaturation to 84%. COMPARISON: Chest x-ray dated 11/01/2016. CT scan of the chest, abdomen and pelvis dated 11/01/2016. TECHNIQUE: Portable AP semierect view of the chest was obtained. FINDINGS: The cardiomediastinal silhouette is enlarged, likely due to projection of the film. Soft tissue prominence of the right suprahilar region again seen, also likely related to projection. Recent CT scan had shown no focal mass. There is some reticular opacity in the medial right lung base, consistent with subsegmental atelectasis. Lungs are otherwise unremarkable. No focal consolidation, effusion or pneumothorax is seen. Bony structures are unremarkable. IMPRESSION: Mild subsegmental atelectasis in medial right lung base.
--- NOTE | 2016-11-02 13:31 | NUR ---
DICTATING RN CALLED RAPID RESPONSE AT 11:30 AT PATIENT FOUND TO BE MORE LETHARGIC THAN PREVIOUS ASSESSMENT. VITAL SIGNS NOT STABLE. BP 190/90, HR 122, RECTAL TEMP 105.0, SATURATION 84% ON RA. PATIENT MINIMALLY RESPONSIVE TO QUESTIONS. APPEARS DROWSY. MEDICAL TEAM AT THE BEDSIDE. PATIENT RECEIVING FLUIDS, ABX AND PLACED ON 3LO2. PER DR. ARRIAGA, ATTENDING PHYSICAN, TO TRANSFER PATIENT TO CRITICAL CARE FOR CLOSER MONITORING. REPORT GIVEN TO [place]. PRIOR TO TRANSER, 1SET OF BLOOD CULTURES DRAWN, PIVO IV PLACED BY JUNIOR AUTOMATION ENGINEERANTONELLA. FAMILY AND PATIENT IN AGREEMENT WITH PLAN. PATIENT TRANSFERRED TO ICU WITH PLATE STACKER KAHLIL BLOUNT. PATIENT REMAINED STABLE. BP 170/88/ HR 122, O2 93% ON 3LO2. PATIENT MORE RESPONSIVE AND ALERT DURING THE TRANSFER.
--- NOTE | 2016-11-02 14:29 | Cons- Infect Disease ---
General Information and HPI Consulting Request Date of Consult: 11/02/16 Requested By: KENZIE VALENZUELA,MARGARITO Reason for Consult: Sepsis of urologic origin Source of Information: patient, old records History of Present Illness: This is a 51-year-old woman with diabetes, hypertension, arthritis and asthma, hospitalized 2 1/2 weeks prior to admission with Escherichia coli sepsis of urologic origin, treated with Ciprofloxacin and discharged after 4 days to complete a seven-day course of treatment, admitted on November 01 after returning to the emergency room with a one-day history of right flank pain, fevers and chills and with an episode of vomiting upon arrival to the emergency room. On admission she was febrile to 105.2. Laboratory data revealed a white blood cell count of 13,000, BUN/creatinine 23 and 0.8, alkaline phosphatase 136, AST/ALT 48 and 73, lactic acid 1.9. Urinalysis 1-3 RBC/15-25 WBCs. Chest x-ray revealed a questionable subtle right basilar infiltrate. CT of the chest, abdomen and pelvis revealed nonspecific bilateral perinephric stranding with no pulmonary consolidation and with a small pericardial effusion. She was begun on Bactrim and admitted to the floor. She appeared to defervesce but late morning she spiked to 105, was moved to the ICU and given a dose of Meropenem. At present she feels improved. She does note some mild back discomfort but is without other complaints. Allergies/Medications Allergies: Coded Allergies: cephalexin (From KEFLEX) (THROAT CLOSES AND SWELLS 10/14/16) clindamycin (HIVES 10/14/16) Home Med List: Albuterol Sulfate (Proair Hfa) 90 MCG HFA.AER.AD 2 PUF INH Q6H PRN ASTHMA ( Reported) Amitriptyline HCl 75 MG TABLET 1 TAB PO QHS MIGRAINES (Reported) Budesonide/Formoterol Fumarate (Symbicort 80-4.5 Mcg Inhaler) 80 MCG-4.5 MCG/ ACTUATION HFA.AER.AD 2 PUF INH BID ASTHMA (Reported) Dulaglutide (Trulicity) 1.5 MG/0.5 ML PEN.INJCTR 1.5 MG SC QMON DM (Reported) Ergocalciferol (Vitamin D2) (Vitamin D2) 50,000 UNIT CAPSULE 1 CAP PO QWED SUPPLEMENT (Reported) Insulin Glargine,Hum.rec.anlog (Lantus Solostar) 100 UNIT/ML (3 ML) INSULN.PEN 40 U SC BID DM Insulin Lispro (Humalog Kwikpen U-100) 100 UNIT/ML INSULN.PEN 0 SC TIDAC/HS DM BEFORE MEALS Blood Insulin Sugar Units <80 0 81-150 6 151-200 8 201-250 10 251-300 12 301-350 14 351-400 16 >400 GIVE 18 UNITS AND CALL DOCTOR AT BEDTIME Blood Insulin Sugar Units <80 0 81-100 0 101-200 0 201-250 2 251-300 4 301-350 6 351-400 7 >400 TAKE 8 AND CALL YOUR DOCTOR Polyethylene Glycol 3350 (Miralax) 17 GRAM/DOSE POWDER 17 GM PO DAILY PRN CONSTIPATION Sennosides/Docusate Sodium (Senna-Time S Tablet) 8.6 MG-50 MG TABLET 187 MG PO AT BEDTIME PRN CONSTIPATION Tramadol HCl 50 MG TABLET 1 TAB PO QPM PAIN (Reported) Past History Travel History Traveled to [place] past 21 day No Medical History Blood Transfusion Hx: No Neurological: migraine EENT: allergies, sinusitis Cardiovascular: hypertension, hyperlipidemia Respiratory: asthma, obstructive sleep apnea Gastrointestinal: irritable bowel syndrome, pancreatitis Hepatic: NONE Renal: NONE Musculoskeletal: osteoarthritis Psychiatric: NONE Endocrine: diabetes Blood Disorders: NONE Cancer(s): NONE FLASH WELDER/Reproductive: NONE History of MRSA: No History of VRE: No History of CDIFF: No Isolation History: Standard Surgical History Surgical History: cholecystectomy, CS X 2 R KNEE SURGERY SINUS SURGERY Family History Relations & Conditions If Any: MOTHER (kidney disease). Psychosocial History Where Do You Live? Home Who Do You Live With? spouse Services at Home: None Primary Language: Serbian Smoking Status: Current Everyday Smoker ETOH Use: denies use Functional Ability ADLs Independent: dressing, eating, toileting, bathing. Ambulation: independent, cane, walker IADLs Independent: shopping, housework, finances, food prep, telephone, transportation , medication admin. Review of Systems Review of Systems All Other Systems: Reviewed and Negative Exam & Diagnostic Data Last 24 Hrs of Vital Signs/I&O Vital Signs Date Time Temp Pulse Resp B/P B/P Pulse O2 O2 Flow FiO2 Mean Ox Delivery Rate 11/02 1153 105.0 11/02 1045 102.4 11/02 0925 95 Room Air 11/02 0919 Room Air 11/02 0645 98.5 100 22 120/60 93 BIPAP 11/02 0427 52 92 11/02 0256 99.1 113 16 120/60 93 Room Air 11/02 0209 99.1 109 20 122/54 95 Room Air 11/02 0107 101.0 112 18 114/49 96 Room Air 11/02 0026 102.5 11/01 2353 102.5 11/01 2245 105.2 11/01 2238 Room Air 11/01 2230 101.7 114 22 179/71 98 Room Air Intake & Output 11/02 1600 11/02 0800 11/02 0000 Intake Total 550 1000 Output Total Balance 550 1000 Intake, IV 400 1000 Intake, Oral 150 Patient 273 lb 278 lb Weight Weight Reported by Patient Measurement Method Physical Exam Other Physical Findings: She is awake and alert in no acute distress. MAXIMUM TEMPERATURE 105.2. Skin reveals no rash. HEENT exam is negative. Neck is supple with no adenopathy. Lungs are clear. Heart regular rhythm with a 1/6 systolic ejection murmur. Abdomen is obese, soft, nontender with positive bowel sounds. Back mild right CVA tenderness. Extremities no cyanosis, clubbing or edema. Neuro is without focality. Last 24 Hours of Lab Results: Laboratory Tests 11/02 11/02 11/02 1230 0700 0700 Chemistry Sodium (137 - 145 mmol/L) 133 L Potassium (3.5 - 5.1 mmol/L) 4.7 Chloride (98 - 107 mmol/L) 100 Carbon Dioxide (22 - 30 mmol/L) 21 L Anion Gap (5 - 16) 13 BUN (7 - 17 mg/dL) 24 H Creatinine (0.5 - 1.0 mg/dL) 0.8 Estimated GFR (>60 ml/min) > 60 BUN/Creatinine Ratio (7 - 25 %) 30.0 H Lactic Acid (0.7 - 2.1 mmol/L) 1.4 1.5 Total Bilirubin (0.2 - 1.3 mg/dL) 0.9 Direct Bilirubin (< 0.4 mg/dL) 0.5 H AST (14 - 36 U/L) 32 ALT (9 - 52 U/L) 57 H Alkaline Phosphatase (<127 U/L) 112 Total Protein (6.3 - 8.2 g/dL) 6.8 Albumin (3.5 - 5.0 g/dL) 3.5 Hematology CBC w Diff MAN DIFF ORDERED WBC (4.8 - 10.8 /CUMM) 15.9 H RBC (4.20 - 5.40 /CUMM) 3.62 L Hgb (12.0 - 16.0 G/DL) 11.1 L Hct (37 - 47 %) 33.4 L MCV (81.0 - 99.0 FL) 92.4 MCH (27.0 - 31.0 PG) 30.8 RDW (11.5 - 14.5 %) 15.1 H Plt Count (130 - 400 /CUMM) 164 MPV (7.4 - 10.4 FL) 11.4 H Gran % (42.2 - 75.2 %) 89.9 H Lymphocytes % (20.5 - 51.1 %) 6.0 L Monocytes % (1.7 - 9.3 %) 3.8 Eosinophils % (0 - 5 %) 0.2 Basophils % (0.0 - 2.0 %) 0.1 Absolute Granulocytes (1.4 - 6.5 /CUMM) 14.3 H Segmented Neutrophils (42.2 - 75.2 %) 81 H Band Neutrophils (0.0 - 5.0 %) 7 H Absolute Lymphocytes (1.2 - 3.4 /CUMM) 0.9 L Lymphocytes (20.5 - 51.1 %) 7 L Monocytes (1.7 - 9.3 %) 4 Absolute Monocytes (0.10 - 0.60 /CUMM) 0.6 Absolute Eosinophils (0.0 - 0.7 /CUMM) 0 Basophils (0.0 - 2.0 %) 1 Absolute Basophils (0.0 - 0.2 /CUMM) 0 Platelet Estimate (ADEQUATE) VERIFIED BY SMEAR Polychromasia 1+ Anisocytosis 1+ PUBS MCHC (33.0 - 37.0 G/DL) 33.4 11/02 11/01 0158 2320 Chemistry Lactic Acid Cancelled Urines Urinalysis LIGHT H Urine Color (YEL,AMB,STR) YEL Urine Clarity (CLEAR) HAZY H Urine pH (5.0 - 8.0) 6.0 Ur Specific [place] (1.001 - 1.035) 1.015 Urine Protein (NEG,<30 MG/DL) 100 H Urine Ketones (NEG) NEG Urine Nitrite (NEG) POS H Urine Bilirubin (NEG) NEG Urine Urobilinogen (0.1 - 1.0 EU/dl) 0.2 Ur Leukocyte Esterase (NEG) SMALL H Ur Microscopic SEDIMENT EXAMINED Urine RBC (0 - 5 /HPF) 1-3 Urine WBC (0 - 2 /HPF) 15-25 H Ur Epithelial Cells (NONE,FEW) FEW Urine Bacteria (NEG/NONE) RARE H Urine Mucus (FEW,NONE) FEW Urine Hemoglobin (NEG) MOD H Urine Glucose (N MG/DL) 500 H 11/01 2308 Chemistry Sodium (137 - 145 mmol/L) 134 L Potassium (3.5 - 5.1 mmol/L) 4.4 Chloride (98 - 107 mmol/L) 98 Carbon Dioxide (22 - 30 mmol/L) 22 Anion Gap (5 - 16) 14 BUN (7 - 17 mg/dL) 23 H Creatinine (0.5 - 1.0 mg/dL) 0.8 Estimated GFR (>60 ml/min) > 60 BUN/Creatinine Ratio (7 - 25 %) 28.8 H Glucose (65 - 99 mg/dL) 287 H Lactic Acid (0.7 - 2.1 mmol/L) 1.9 Calcium (8.4 - 10.2 mg/dL) 10.2 Total Bilirubin (0.2 - 1.3 mg/dL) 1.2 AST (14 - 36 U/L) 48 H ALT (9 - 52 U/L) 73 H Alkaline Phosphatase (<127 U/L) 136 H Total Protein (6.3 - 8.2 g/dL) 8.4 H Albumin (3.5 - 5.0 g/dL) 4.5 Globulin (1.9 - 4.2 gm/dL) 3.9 Albumin/Globulin Ratio (1.1 - 2.2 %) 1.2 Hematology CBC w Diff NO MAN DIFF REQ WBC (4.8 - 10.8 /CUMM) 13.3 H RBC (4.20 - 5.40 /CUMM) 3.92 L Hgb (12.0 - 16.0 G/DL) 11.9 L Hct (37 - 47 %) 36.0 L MCV (81.0 - 99.0 FL) 91.7 MCH (27.0 - 31.0 PG) 30.4 RDW (11.5 - 14.5 %) 15.5 H Plt Count (130 - 400 /CUMM) 234 MPV (7.4 - 10.4 FL) 9.6 Gran % (42.2 - 75.2 %) 93.1 H Lymphocytes % (20.5 - 51.1 %) 6.1 L Monocytes % (1.7 - 9.3 %) 0.2 L Eosinophils % (0 - 5 %) 0.4 Basophils % (0.0 - 2.0 %) 0.2 Absolute Granulocytes (1.4 - 6.5 /CUMM) 12.4 H Absolute Lymphocytes (1.2 - 3.4 /CUMM) 0.8 L Absolute Monocytes (0.10 - 0.60 /CUMM) 0 L Absolute Eosinophils (0.0 - 0.7 /CUMM) 0.1 Absolute Basophils (0.0 - 0.2 /CUMM) 0 PUBS MCHC (33.0 - 37.0 G/DL) 33.1 Last 24 Hours of Scar Results: Blood cultures 2 November 01 positive for gram-negative rods Urine culture November 01 greater than 100,000 colonies of gram-negative rods Diagnostic Data Recent Imaging Findings: Chest x-ray November 02, personally reviewed, reveals mild subsegmental atelectasis in the medial right lung base CT of the chest, abdomen and pelvis November 02 reveals nonspecific bilateral perinephric stranding, with no hydronephrosis or calculi, hepatomegaly and a small pericardial effusion Assessment/Plan Assessment/Plan Impression: This is a 51-year-old woman with diabetes, hypertension and asthma recently hospitalized with Escherichia coli sepsis of urologic origin, treated with a 7 day course of Ciprofloxacin, readmitted early this morning after returning to the emergency room with right flank pain, fevers and chills and found again to have positive blood and urine cultures for gram-negative rods. This appears to represent a relapse of her previous infection. Her CT scan does not demonstrate any evidence for a renal abscess or obstruction. I suspect that her cultures will again grow Escherichia coli, likely still sensitive to Ciprofloxacin, but can continue Meropenem, which she appears to have tolerated, pending final cultures. Of note she does have an allergy to Keflex, but states she has tolerated Amoxicillin and now, apparently, carbopenems as well. Suggestion: 1. Follow-up final cultures 2. Discontinue Bactrim 3. Continue Meropenem 1 g IV every 8 hours pending above Consult Acknowledgment - Thank you for your consult request.
[2016-11-02 15:00] VITALS: BP 126/70
[2016-11-02 20:00] VITALS: BP 118/58
--- NOTE | 2016-11-02 22:33 | PN- Att Addend ---
Attending Addendum Attending Brief Note 51F PMH diabetes, hypertension, arthritis and asthma with recent admission for sepsis secondary to UTI with cultures growing hutton-sensitive E.coli, admitted with right sided flank pain, fever, chills, sepsis, weakness. Started on Bactrim overnight as previous cultures were sensitive. Today became acutely altered, temp 102, hypoxic 86% on room air, diaphoretic. Patient was then transferred to ICU for further monitoring. Mild distress, appears septic NCAT MMM Supple RRR CTAB Soft, NTND, right CVA tenderness No c/c/e Pulses intact A&Ox3 no focal deficits Current Medications Sig/Adam Start time Last Medication Dose Route Stop Time Status Admin Acetaminophen 1,000 MG ONCE ONE 11/02 1130 DC 11/02 N/A 1 UNIT IV 11/02 1144 1153 Acetaminophen 650 MG Q6P PRN 11/02 0215 AC 11/02 PO 1803 Acetaminophen 0 .STK-MED ONE 11/01 2310 DC IV Acetaminophen 1,000 MG ONCE ONE 11/01 2300 DC 11/01 N/A 1 UNIT IV 11/01 2314 2334 Albuterol Sulfate 3 ML Q4P PRN 11/02 0930 AC 11/02 INH 2028 Albuterol Sulfate 2 PUF Q4P PRN 11/02 0930 AC INH Amitriptyline HCl 75 MG AT BEDTIME 11/02 2200 AC PO Budesonide/ 2 PUF BID 11/02 1000 AC 11/02 Formoterol Fumarate INH 0751 Enoxaparin Sodium 40 MG DAILY 11/02 1000 AC 11/02 SC 0752 Hydromorphone HCl 1 MG Q6P PRN 11/02 0215 AC IV Insulin Aspart 0 TIDAC/HS 11/02 0800 AC 11/02 SC 1823 Insulin Detemir 36 UNITS BID 11/02 1000 AC 11/02 SC 0750 Insulin Detemir 40 UNITS BID 11/02 0238 DC 11/02 SC 0443 Lidocaine 1 PAT Q24H 11/02 0215 AC 11/02 EXT 0338 Lorazepam 0 .STK-MED ONE 11/01 2351 DC .ROUTE Lorazepam 0.5 MG ONCE ONE 11/01 2345 DC 11/01 IV 11/01 2346 2350 Meropenem 1 GM Q8 11/02 2200 AC IV Meropenem 1 GM STAT STA 11/02 1148 DC 11/02 IV 11/02 1149 1153 Moxifloxacin HCl 400 MG ONCE ONE 11/01 2345 CAN IV 11/01 2346 Nicotine 14 MG DAILY 11/02 1000 11/02 TOP 0752 Ondansetron HCl 4 MG Q6P PRN 11/02 0215 AC 11/02 IV 1051 Oxycodone/ 1 TAB Q6P PRN 11/02 0215 AC 11/02 Acetaminophen PO 2021 Polyethylene Glycol 17 GM AT BEDTIME 11/02 2200 AC PO Senna/Docusate Sodium 2 TAB AT BEDTIME 11/02 2200 AC PO Sodium Chloride 1,000 ML Q10H 11/02 0500 AC 11/02 IV 1805 Sodium Chloride 1,000 ML SEE RATE 11/02 0215 DC IV Sodium Chloride 1,000 ML BOLUS ONE 11/01 2300 DC 11/01 IV 11/01 2359 2334 Trimethobenzamide HCl 200 MG TID PRN 11/02 1200 AC 11/02 IM 1221 Trimethoprim/ 25 ML Q8H 11/02 0900 DC Sulfamethoxazole IV Dextrose/Water 500 ML Trimethoprim/ 25 ML ONCE ONE 11/02 0030 DC 11/02 Sulfamethoxazole IV 11/02 0229 0107 Dextrose/Water 500 ML Trimethoprim/ 10 ML Q6 11/01 2359 CAN Sulfamethoxazole IV Laboratory Tests 11/02 11/02 11/02 1230 0700 0700 Chemistry Sodium (137 - 145 mmol/L) 133 L Potassium (3.5 - 5.1 mmol/L) 4.7 Chloride (98 - 107 mmol/L) 100 Carbon Dioxide (22 - 30 mmol/L) 21 L Anion Gap (5 - 16) 13 BUN (7 - 17 mg/dL) 24 H Creatinine (0.5 - 1.0 mg/dL) 0.8 Estimated GFR (>60 ml/min) > 60 BUN/Creatinine Ratio (7 - 25 %) 30.0 H Lactic Acid (0.7 - 2.1 mmol/L) 1.4 1.5 Total Bilirubin (0.2 - 1.3 mg/dL) 0.9 Direct Bilirubin (< 0.4 mg/dL) 0.5 H AST (14 - 36 U/L) 32 ALT (9 - 52 U/L) 57 H Alkaline Phosphatase (<127 U/L) 112 Total Protein (6.3 - 8.2 g/dL) 6.8 Albumin (3.5 - 5.0 g/dL) 3.5 Hematology CBC w Diff MAN DIFF ORDERED WBC (4.8 - 10.8 /CUMM) 15.9 H RBC (4.20 - 5.40 /CUMM) 3.62 L Hgb (12.0 - 16.0 G/DL) 11.1 L Hct (37 - 47 %) 33.4 L MCV (81.0 - 99.0 FL) 92.4 MCH (27.0 - 31.0 PG) 30.8 RDW (11.5 - 14.5 %) 15.1 H Plt Count (130 - 400 /CUMM) 164 MPV (7.4 - 10.4 FL) 11.4 H Gran % (42.2 - 75.2 %) 89.9 H Lymphocytes % (20.5 - 51.1 %) 6.0 L Monocytes % (1.7 - 9.3 %) 3.8 Eosinophils % (0 - 5 %) 0.2 Basophils % (0.0 - 2.0 %) 0.1 Absolute Granulocytes (1.4 - 6.5 /CUMM) 14.3 H Segmented Neutrophils (42.2 - 75.2 %) 81 H Band Neutrophils (0.0 - 5.0 %) 7 H Absolute Lymphocytes (1.2 - 3.4 /CUMM) 0.9 L Lymphocytes (20.5 - 51.1 %) 7 L Monocytes (1.7 - 9.3 %) 4 Absolute Monocytes (0.10 - 0.60 /CUMM) 0.6 Absolute Eosinophils (0.0 - 0.7 /CUMM) 0 Basophils (0.0 - 2.0 %) 1 Absolute Basophils (0.0 - 0.2 /CUMM) 0 Platelet Estimate (ADEQUATE) VERIFIED BY SMEAR Polychromasia 1+ Anisocytosis 1+ PUBS MCHC (33.0 - 37.0 G/DL) 33.4 11/02 11/01 0158 2320 Chemistry Lactic Acid Cancelled Urines Urinalysis LIGHT H Urine Color (YEL,AMB,STR) YEL Urine Clarity (CLEAR) HAZY H Urine pH (5.0 - 8.0) 6.0 Ur Specific [place] (1.001 - 1.035) 1.015 Urine Protein (NEG,<30 MG/DL) 100 H Urine Ketones (NEG) NEG Urine Nitrite (NEG) POS H Urine Bilirubin (NEG) NEG Urine Urobilinogen (0.1 - 1.0 EU/dl) 0.2 Ur Leukocyte Esterase (NEG) SMALL H Ur Microscopic SEDIMENT EXAMINED Urine RBC (0 - 5 /HPF) 1-3 Urine WBC (0 - 2 /HPF) 15-25 H Ur Epithelial Cells (NONE,FEW) FEW Urine Bacteria (NEG/NONE) RARE H Urine Mucus (FEW,NONE) FEW Urine Hemoglobin (NEG) MOD H Urine Glucose (N MG/DL) 500 H 11/01 2308 Chemistry Sodium (137 - 145 mmol/L) 134 L Potassium (3.5 - 5.1 mmol/L) 4.4 Chloride (98 - 107 mmol/L) 98 Carbon Dioxide (22 - 30 mmol/L) 22 Anion Gap (5 - 16) 14 BUN (7 - 17 mg/dL) 23 H Creatinine (0.5 - 1.0 mg/dL) 0.8 Estimated GFR (>60 ml/min) > 60 BUN/Creatinine Ratio (7 - 25 %) 28.8 H Glucose (65 - 99 mg/dL) 287 H Lactic Acid (0.7 - 2.1 mmol/L) 1.9 Calcium (8.4 - 10.2 mg/dL) 10.2 Total Bilirubin (0.2 - 1.3 mg/dL) 1.2 AST (14 - 36 U/L) 48 H ALT (9 - 52 U/L) 73 H Alkaline Phosphatase (<127 U/L) 136 H Total Protein (6.3 - 8.2 g/dL) 8.4 H Albumin (3.5 - 5.0 g/dL) 4.5 Globulin (1.9 - 4.2 gm/dL) 3.9 Albumin/Globulin Ratio (1.1 - 2.2 %) 1.2 Hematology CBC w Diff NO MAN DIFF REQ WBC (4.8 - 10.8 /CUMM) 13.3 H RBC (4.20 - 5.40 /CUMM) 3.92 L Hgb (12.0 - 16.0 G/DL) 11.9 L Hct (37 - 47 %) 36.0 L MCV (81.0 - 99.0 FL) 91.7 MCH (27.0 - 31.0 PG) 30.4 RDW (11.5 - 14.5 %) 15.5 H Plt Count (130 - 400 /CUMM) 234 MPV (7.4 - 10.4 FL) 9.6 Gran % (42.2 - 75.2 %) 93.1 H Lymphocytes % (20.5 - 51.1 %) 6.1 L Monocytes % (1.7 - 9.3 %) 0.2 L Eosinophils % (0 - 5 %) 0.4 Basophils % (0.0 - 2.0 %) 0.2 Absolute Granulocytes (1.4 - 6.5 /CUMM) 12.4 H Absolute Lymphocytes (1.2 - 3.4 /CUMM) 0.8 L Absolute Monocytes (0.10 - 0.60 /CUMM) 0 L Absolute Eosinophils (0.0 - 0.7 /CUMM) 0.1 Absolute Basophils (0.0 - 0.2 /CUMM) 0 PUBS MCHC (33.0 - 37.0 G/DL) 33.1 1. Severe sepsis 2. Acute pyelonephritis 3. Hypoxia 4. Metabolic encephalopathy Plan - Transfer to ICU - IV hydration - Discontinue Bactrim, start Meropenem - ID consult - Urine and blood cultures - Continue home medications - DVT PPx
[2016-11-02 23:21] VITALS: BP 138/52
[2016-11-03 04:00] VITALS: BP 148/60
[2016-11-03 05:55] LABS: ABSOLUTE BASOPHIL COUNT 0 /CUMM (0.0-0.2); ABSOLUTE EOSINOPHIL COUNT 0 /CUMM (0.0-0.7); ABSOLUTE GRANULOCYTE CT 9.3 /CUMM (1.4-6.5); ABSOLUTE LYMPH COUNT 0.9 /CUMM (1.2-3.4); ABSOLUTE MONOCYTE COUNT 0.3 /CUMM (0.10-0.60); BASOPHIL % 0 % (0.0-2.0); EOSINOPHIL % 0.3 % (0-5); GRANULOCYTE % 88.1 % (42.2-75.2); HEMATOCRIT 29.9 % (37-47); MEAN CORPUSCULAR HGB 30.7 PG (27.0-31.0); MEAN CORPUSCULAR HGB CONC 33.2 G/DL (33.0-37.0); MEAN CORPUSCULAR VOLUME 92.7 FL (81.0-99.0); MEAN PLATELET VOLUME 10.4 FL (7.4-10.4); PLATELET COUNT 159 /CUMM (130-400); RBC DISTRIBUTION WIDTH 15.1 % (11.5-14.5); RED BLOOD CELL CT 3.23 /CUMM (4.20-5.40); WHITE BLOOD CELL COUNT 10.5 /CUMM (4.8-10.8)
--- NOTE | 2016-11-03 07:55 | PN- Diabetes ---
ANTWAN VALENZUELA,REBECA Zabala. 11/03/16 0753: Assessment/Plan Assessment: She was moved to the intensive care unit because of tachycardia. Her antibiotic has been changed. She still complains of some flank pain. She feels she will be able to eat breakfast this morning. Her blood sugars were high yesterday. Plan: Suggest increase Levemir to 40 units twice a day. Change sliding-scale NovoLog before meals to 80-150 give 6 units NovoLog, 151-200 give 8 units NovoLog, 201- 250 give 10 units NovoLog, 251-300 give 12 units NovoLog, 301-350 give 14 units NovoLog, 51-400 give 16 units NovoLog. Continue a separate bedtime sliding-scale NovoLog as written. Subjective Subjective: Still does not feel well Review of Systems Constitutional: Reports: chills. Cardiovascular: Denies: chest pain. Respiratory: Denies: short of breath. Gastrointestinal: Reports: abdominal pain (flank pain). Skin: Reports: no symptoms. Objective Last 24 Hrs of Vital Signs/I&O Vital Signs Date Time Temp Pulse Resp B/P B/P Pulse O2 O2 Flow FiO2 Mean Ox Delivery Rate 11/03 0638 99.3 11/03 0533 99.9 11/03 0400 101.0 107 20 148/60 95 CPAP 11/03 0353 101.0 11/03 0026 92 96 11/03 0000 94 CPAP 11/02 2325 91 94 11/02 2321 99.9 93 19 138/52 94 CPAP 11/02 2030 97 Nasal 3.0L Cannula 11/03 1999 96 Nasal 3.0L Cannula 11/03 1999 98.3 88 25 118/58 96 Nasal 3.0L Cannula 11/02 1600 98 Nasal 3.0L Cannula 11/02 1500 99.4 126/70 11/02 1230 94 Nasal 3.0L Cannula 11/02 1230 101.4 108 24 94 Nasal 3.0L Cannula 11/02 1153 105.0 11/02 1045 102.4 11/02 0925 95 Room Air 11/02 0919 Room Air Intake & Output 11/03 0800 11/03 0000 11/02 1600 Intake Total 1291 1243 960 Output Total 600 1200 1100 Balance 691 43 -140 Intake, IV 771 363 600 Intake, Oral 520 880 360 Number 0 Bowel Movements Output, Urine 600 1200 1100 Vital Signs Date Time Temp Pulse Resp B/P B/P Pulse O2 O2 Flow FiO2 Mean Ox Delivery Rate 11/03 0638 99.3 11/03 0533 99.9 11/03 0400 101.0 107 20 148/60 95 CPAP 11/03 0353 101.0 11/03 0026 92 96 11/03 0000 94 CPAP 11/02 2325 91 94 11/02 2321 99.9 93 19 138/52 94 CPAP 11/02 2030 97 Nasal 3.0L Cannula 11/03 1999 96 Nasal 3.0L Cannula 11/03 1999 98.3 88 25 118/58 96 Nasal 3.0L Cannula 11/02 1600 98 Nasal 3.0L Cannula 11/02 1500 99.4 126/70 11/02 1230 94 Nasal 3.0L Cannula 11/02 1230 101.4 108 24 94 Nasal 3.0L Cannula 11/02 1153 105.0 11/02 1045 102.4 11/02 0925 95 Room Air 11/02 0919 Room Air Intake & Output 11/03 0800 11/03 0000 11/02 1600 Intake Total 1291 1243 960 Output Total 600 1200 1100 Balance 691 43 -140 Intake, IV 771 363 600 Intake, Oral 520 880 360 Number 0 Bowel Movements Output, Urine 600 1200 1100 Physical Exam General Appearance: awake, lethargic Neck: normal inspection Respiratory: normal breath sounds Cardiovascular: regular rate/rhythm Abdomen: normal bowel sounds, soft Extremities: normal inspection Current Medications: Current Medications Sig/Adam Start time Last Medication Dose Route Stop Time Status Admin Acetaminophen 1,000 MG ONCE ONE 11/02 1130 DC 11/02 N/A 1 UNIT IV 11/02 1144 1153 Acetaminophen 650 MG Q6P PRN 11/02 0215 AC 11/03 PO 0353 Albuterol Sulfate 3 ML Q4P PRN 11/02 0930 AC 11/02 INH 2028 Albuterol Sulfate 2 PUF Q4P PRN 11/02 0930 AC INH Amitriptyline HCl 75 MG AT BEDTIME 11/02 2200 AC 11/02 PO 2136 Budesonide/ 2 PUF BID 11/02 1000 AC 11/02 Formoterol Fumarate INH 0751 Enoxaparin Sodium 40 MG DAILY 11/02 1000 AC 11/02 SC 0752 Hydromorphone HCl 1 MG Q6P PRN 11/02 0215 AC IV Insulin Aspart 0 TIDAC/HS 11/02 0800 AC 11/02 SC 2136 Insulin Detemir 36 UNITS BID 11/02 1000 AC 11/02 SC 2136 Lidocaine 1 PAT Q24 11/03 1000 AC EXT Lidocaine 1 PAT Q24H 11/02 0215 DC 11/02 EXT 0338 Meropenem 1 GM Q8 11/02 2200 AC 11/03 IV 0549 Meropenem 1 GM STAT STA 11/02 1148 DC 11/02 IV 11/02 1149 1153 Nicotine 14 MG DAILY 11/02 1000 AC 11/02 TOP 0752 Ondansetron HCl 4 MG Q6P PRN 11/02 0215 AC 11/02 IV 1051 Oxycodone/ 1 TAB Q6P PRN 11/02 021 AC 11/02 Acetaminophen PO 2021 Polyethylene Glycol 17 GM AT BEDTIME 11/02 2200 AC 11/02 PO 2136 Senna/Docusate Sodium 2 TAB AT BEDTIME 11/02 2200 AC 11/02 PO 2136 Sodium Chloride 1,000 ML Q10H 11/02 0500 AC 11/03 IV 0407 Trimethobenzamide HCl 200 MG TID PRN 11/02 1200 AC 11/02 IM 1221 Trimethoprim/ 25 ML Q8H 11/02 0900 DC Sulfamethoxazole IV Dextrose/Water 500 ML Findings Pertinent Lab/Scar Results: Laboratory Tests 11/03 11/02 11/02 0405 1246 1230 Chemistry Sodium (137 - 145 mmol/L) 133 L Potassium (3.5 - 5.1 mmol/L) 4.4 Chloride (98 - 107 mmol/L) 101 Carbon Dioxide (22 - 30 mmol/L) 23 Anion Gap (5 - 16) 8 BUN (7 - 17 mg/dL) 19 H Creatinine (0.5 - 1.0 mg/dL) 0.8 Estimated GFR (>60 ml/min) > 60 BUN/Creatinine Ratio (7 - 25 %) 23.8 Lactic Acid (0.7 - 2.1 mmol/L) Cancelled 1.4 Hematology CBC w Diff MAN DIFF ORDERED WBC (4.8 - 10.8 /CUMM) 10.5 RBC (4.20 - 5.40 /CUMM) 3.23 L Hgb (12.0 - 16.0 G/DL) 9.9 L Hct (37 - 47 %) 29.9 L MCV (81.0 - 99.0 FL) 92.7 MCH (27.0 - 31.0 PG) 30.7 RDW (11.5 - 14.5 %) 15.1 H Plt Count (130 - 400 /CUMM) 159 MPV (7.4 - 10.4 FL) 10.4 Gran % (42.2 - 75.2 %) 88.1 H Lymphocytes % (20.5 - 51.1 %) 8.8 L Monocytes % (1.7 - 9.3 %) 2.8 Eosinophils % (0 - 5 %) 0.3 Basophils % (0.0 - 2.0 %) 0 L Absolute Granulocytes (1.4 - 6.5 /CUMM) 9.3 H Segmented Neutrophils (42.2 - 75.2 %) 87 H Band Neutrophils (0.0 - 5.0 %) 3 Absolute Lymphocytes (1.2 - 3.4 /CUMM) 0.9 L Lymphocytes (20.5 - 51.1 %) 8 L Monocytes (1.7 - 9.3 %) 2 Absolute Monocytes (0.10 - 0.60 /CUMM) 0.3 Absolute Eosinophils (0.0 - 0.7 /CUMM) 0 Absolute Basophils (0.0 - 0.2 /CUMM) 0 Platelet Estimate (ADEQUATE) ADEQUATE Polychromasia 1+ Basophilic Stippling SLIGHT Ovalocytes FEW PUBS MCHC (33.0 - 37.0 G/DL) 33.2 Other Body Source [place] Total RBCs Counted (%) 100 DARIAN VALENZUELA,[facility] 11/04/16 1426: Objective Last 24 Hrs of Vital Signs/I&O Vital Signs Date Time Temp Pulse Resp B/P B/P Pulse O2 O2 Flow FiO2 Mean Ox Delivery Rate 11/04 1435 97.8 91 20 128/64 93 Room Air 11/04 0625 99.3 108 22 150/72 91 Room Air 11/03 2219 99.8 94 20 142/80 92 Room Air 11/03 1826 98.6 93 20 120/56 94 Room Air 11/03 1817 93 Room Air Room Air Intake & Output 11/04 1600 11/04 0800 11/04 0000 Intake Total 1005 850 Output Total 600 500 Balance 405 350 Intake, IV 525 600 Intake, Oral 480 250 Output, Urine 600 500
[2016-11-03 08:00] VITALS: BP 132/72
--- NOTE | 2016-11-03 08:15 | PN- Housestaff ---
See Addendum Subjective Follow-up For: Sepsis secondary to complicated UTI(pyelonephritis) Subjective: Tmax 101 at 4 AM, currently afebrile, hemodynamically stable, saturating well on room air. She is sitting in the recliner only complaining of mild headache. No acute overnight event was reported. Review of Systems Constitutional: Reports: no symptoms. Objective Last 24 Hrs of Vital Signs/I&O Vital Signs Date Time Temp Pulse Resp B/P B/P Pulse O2 O2 Flow FiO2 Mean Ox Delivery Rate 11/03 0829 95 Room Air Room Air 11/03 0809 94 Room Air 11/03 0800 99.1 107 20 132/72 92 Room Air 11/03 0638 99.3 11/03 0533 99.9 11/03 0400 101.0 107 20 148/60 95 CPAP 11/03 0353 101.0 11/03 0026 92 96 11/03 0000 94 CPAP 11/02 2325 91 94 11/02 2321 99.9 93 19 138/52 94 CPAP 11/02 2030 97 Nasal 3.0L Cannula 11/02 2000 96 Nasal 3.0L Cannula 11/02 2000 98.3 88 25 118/58 96 Nasal 3.0L Cannula 11/02 1600 98 Nasal 3.0L Cannula 11/02 1500 99.4 126/70 11/02 1252 99.9 11/02 1230 94 Nasal 3.0L Cannula 11/02 1230 101.4 108 24 94 Nasal 3.0L Cannula 11/02 1153 105.0 Intake & Output 11/03 1600 11/03 0800 11/03 0000 Intake Total 240 1291 1243 Output Total 586 719 0502 Balance -60 691 43 Intake, IV 771 363 Intake, Oral 240 520 880 Number 0 0 Bowel Movements Output, Stool 0 Output, Urine 787 370 1455 Physical Exam General Appearance: Alert, Oriented X3, Cooperative, No Acute Distress HEENT: Atraumatic, PERRLA, EOMI, Mucous Membr. moist/pink Cardiovascular: Regular Rate, Normal S1, Normal S2, No Murmurs Lungs: Clear to Auscultation, Normal Air Movement Abdomen: Normal Bowel Sounds, Soft, No Tenderness Neurological: Normal Speech Extremities: No Clubbing, No Cyanosis, No Edema Current Medications: Current Medications Sig/Adam Start time Last Medication Dose Route Stop Time Status Admin Acetaminophen 1,000 MG ONCE ONE 11/02 1130 DC 11/02 N/A 1 UNIT IV 11/02 1144 1153 Acetaminophen 650 MG Q6P PRN 11/02 0215 AC 11/03 PO 1059 Albuterol Sulfate 3 ML Q4P PRN 11/02 0930 AC 11/02 INH 2028 Albuterol Sulfate 2 PUF Q4P PRN 11/02 0930 AC INH Amitriptyline HCl 75 MG AT BEDTIME 11/02 2200 AC 11/02 PO 2136 Budesonide/ 2 PUF BID 11/02 1000 AC 11/03 Formoterol Fumarate INH 1050 Ciprofloxacin 750 MG BID 11/03 1000 AC PO 11/07 0959 Enoxaparin Sodium 40 MG DAILY 11/02 1000 AC 11/03 SC 1049 Hydromorphone HCl 1 MG Q6P PRN 11/02 0215 AC IV Insulin Aspart 0 TIDAC/HS 11/02 0800 AC 11/03 SC 0853 Insulin Detemir 36 UNITS BID 11/02 1000 AC 11/03 SC 1048 Lidocaine 1 PAT Q24 11/03 1000 AC 11/03 EXT 1050 Lidocaine 1 PAT Q24H 11/02 0215 DC 11/02 EXT 0338 Meropenem 1 GM Q8 11/02 2200 DC 11/03 IV 0549 Meropenem 1 GM STAT STA 11/02 1148 DC 11/02 IV 11/02 1149 1153 Nicotine 14 MG DAILY 11/02 1000 AC 11/03 TOP 1049 Ondansetron HCl 4 MG Q6P PRN 11/02 0215 AC 11/03 IV 0858 Oxycodone/ 1 TAB Q6P PRN 11/02 0215 AC 11/02 Acetaminophen PO 2021 Polyethylene Glycol 17 GM AT BEDTIME 11/02 2200 AC 11/02 PO 2136 Senna/Docusate Sodium 2 TAB AT BEDTIME 11/02 2200 AC 11/02 PO 2136 Sodium Chloride 1,000 ML Q10H 11/02 0500 AC 11/03 IV 0407 Trimethobenzamide HCl 200 MG TID PRN 11/02 1200 AC 11/02 IM 1221 Trimethoprim/ 25 ML Q8H 11/02 0900 DC Sulfamethoxazole IV Dextrose/Water 500 ML Last 24 Hrs of Lab/Scar Results Last 24 Hrs of Labs/Mics: Laboratory Tests 11/03/16 0405: Anion Gap 8, Estimated GFR > 60, BUN/Creatinine Ratio 23.8, CBC w Diff MAN DIFF ORDERED, RBC 3.23 L, MCV 92.7, MCH 30.7, RDW 15.1 H, MPV 10.4, Gran % 88.1 H, Lymphocytes % 8.8 L, Monocytes % 2.8, Eosinophils % 0.3, Basophils % 0 L, Absolute Granulocytes 9.3 H, Segmented Neutrophils 87 H, Band Neutrophils 3, Absolute Lymphocytes 0.9 L, Lymphocytes 8 L, Monocytes 2, Absolute Monocytes 0.3, Absolute Eosinophils 0, Absolute Basophils 0, Platelet Estimate ADEQUATE, Polychromasia 1+, Basophilic Stippling SLIGHT, Ovalocytes FEW, PUBS MCHC 33.2, Fld Total RBCs Counted 100 11/02/16 1246: Lactic Acid Cancelled 11/02/16 1230: Lactic Acid 1.4 Microbiology 11/02 1500 URINE ROUT: Urine Culture - RES 11/02 1400 GI: Surveillance Culture - RECD 11/02 1230 UPPER RESP: Surveillance Culture - RECD 11/02 1230 BLOOD: Blood Culture - RECD 11/02 1225 BLOOD: Blood Culture - RECD Assessment/Plan Assessment: Ms. Erickson is 51 year old female with past medical history significant for diabetes type 2, active smoker, COPD, hypertension, hyperlipidemia, obstructive sleep apnea on CPAP, migraine who was recently discharged on 10/20/16 after was treated for sepsis of urologic origin. Patient presented to the ED again complaining of right flank and lower back pain associated with fever and chills, she was diagnosed with pyelonephritis and was admitted to general med floor. Patient developed tachycardia and plan hypotension for which she was transferred to ICU for close monitoring. #Sepsis of urologic origin * Stable this a.m. * Urine cultures pansensitive with intermittent resistant to ampicillin * Switch antibiotic to ciprofloxacin to finish a course of 14 days * Patient stable and can be sent back to general medicine floor #Diabetes mellitus * Accu-Chek before meals and at bedtime * Continue NovoLog SS as mentioned in endocrinology note * She is tolerating diet well we will increased levemir to 40 twice a day #History of COPD and SEDA on CPAP * Continue home nebs albuterol and Symbicort * TRC * Continue CPAP Code full Diet consistent carbohydrate 3 DVT prophylaxis Lovenox Problem List: 1. UTI (urinary tract infection) 2. Sepsis Pain Ratin Pain Location: back Pain Goal: Remain pain free Pain Plan: Assessment and plan Tomorrow's Labs & Rationales: CBC and BEP
--- NOTE | 2016-11-03 10:23 | PN- Infect Dx ---
Subjective Subjective: MAXIMUM TEMPERATURE 105. She complains of right lower back/buttock pain, nausea and mild shortness of breath. She has no urinary symptoms. Objective Last 24 Hrs of Vital Signs/I&O Vital Signs Date Time Temp Pulse Resp B/P B/P Pulse O2 O2 Flow FiO2 Mean Ox Delivery Rate 11/03 0829 95 Room Air Room Air 11/03 0809 94 Room Air 11/03 0638 99.3 11/03 0533 99.9 11/03 0400 101.0 107 20 148/60 95 CPAP 11/03 0353 101.0 11/03 0026 92 96 11/03 0000 94 CPAP 11/02 2325 91 94 11/02 2321 99.9 93 19 138/52 94 CPAP 11/02 2030 97 Nasal 3.0L Cannula 11/03 1999 96 Nasal 3.0L Cannula 11/03 1999 98.3 88 25 118/58 96 Nasal 3.0L Cannula 11/02 1600 98 Nasal 3.0L Cannula 11/02 1500 99.4 126/70 11/02 1252 99.9 11/02 1230 94 Nasal 3.0L Cannula 11/02 1230 101.4 108 24 94 Nasal 3.0L Cannula 11/02 1153 105.0 11/02 1045 102.4 Intake & Output 11/03 1600 11/03 0800 11/03 0000 Intake Total 1291 1243 Output Total 600 1200 Balance 691 43 Intake, IV 771 363 Intake, Oral 520 880 Number 0 Bowel Movements Output, Urine 600 1200 Physical Exam Other Physical Findings: She is awake and alert in no acute distress Lungs are clear Heart regular rhythm with no murmur Abdomen obese, soft, nontender with positive bowel sounds Back minimal right CVA tenderness Extremities no cyanosis, clubbing or edema Results Last 24 Hours of Lab Results: Laboratory Tests 11/03 11/02 11/02 0405 1246 1230 Chemistry Sodium (137 - 145 mmol/L) 133 L Potassium (3.5 - 5.1 mmol/L) 4.4 Chloride (98 - 107 mmol/L) 101 Carbon Dioxide (22 - 30 mmol/L) 23 Anion Gap (5 - 16) 8 BUN (7 - 17 mg/dL) 19 H Creatinine (0.5 - 1.0 mg/dL) 0.8 Estimated GFR (>60 ml/min) > 60 BUN/Creatinine Ratio (7 - 25 %) 23.8 Lactic Acid (0.7 - 2.1 mmol/L) Cancelled 1.4 Hematology CBC w Diff MAN DIFF ORDERED WBC (4.8 - 10.8 /CUMM) 10.5 RBC (4.20 - 5.40 /CUMM) 3.23 L Hgb (12.0 - 16.0 G/DL) 9.9 L Hct (37 - 47 %) 29.9 L MCV (81.0 - 99.0 FL) 92.7 MCH (27.0 - 31.0 PG) 30.7 RDW (11.5 - 14.5 %) 15.1 H Plt Count (130 - 400 /CUMM) 159 MPV (7.4 - 10.4 FL) 10.4 Gran % (42.2 - 75.2 %) 88.1 H Lymphocytes % (20.5 - 51.1 %) 8.8 L Monocytes % (1.7 - 9.3 %) 2.8 Eosinophils % (0 - 5 %) 0.3 Basophils % (0.0 - 2.0 %) 0 L Absolute Granulocytes (1.4 - 6.5 /CUMM) 9.3 H Segmented Neutrophils (42.2 - 75.2 %) 87 H Band Neutrophils (0.0 - 5.0 %) 3 Absolute Lymphocytes (1.2 - 3.4 /CUMM) 0.9 L Lymphocytes (20.5 - 51.1 %) 8 L Monocytes (1.7 - 9.3 %) 2 Absolute Monocytes (0.10 - 0.60 /CUMM) 0.3 Absolute Eosinophils (0.0 - 0.7 /CUMM) 0 Absolute Basophils (0.0 - 0.2 /CUMM) 0 Platelet Estimate (ADEQUATE) ADEQUATE Polychromasia 1+ Basophilic Stippling SLIGHT Ovalocytes FEW PUBS MCHC (33.0 - 37.0 G/DL) 33.2 Other Body Source Fld Total RBCs Counted (%) 100 Last 24 Hours of Scar Results: Blood cultures November 01 positive for gram-negative rods Urine culture November 01 greater than 100,000 colonies of Escherichia coli intermediate to Ampicillin Blood cultures November 02 negative Urine culture November 02 pending Assessment/Plan Impression: Improving with temperatures lower grade and white blood cell count now normal on Meropenem Day 2 of treatment for Escherichia coli sepsis of urologic origin status post a 7 day course of Ciprofloxacin several weeks prior to admission for a left pyelonephritis/sepsis secondary to Escherichia coli. Suggestion: 1. Follow-up final cultures 2. Discontinue Meropenem 3. Begin Ciprofloxacin 750 mg po every 12 hours
--- NOTE | 2016-11-03 10:53 | Patient Discharge Instructions ---
Discharge Instructions General Discharge Information You were seen/treated for: Pyelonephritis Watch for these problems: If you feel weak, experience chest pain, shortness breath, worsening cough or increased weakness please come back to the emergency department. Other signs to watch out for include: fever, chills, nausea and vomiting. Special Instructions: Please follow-up with your primary care physician within 7 days of discharge. Please inform your primary care physician of this admission to the hospital. Please speak to your primary care physician about the need for a sleep study. You may also benefit from an echocardiogram to be done as an outpatient. Diet Continue normal diet: Yes Activity Full Activity/No Limits: No Activity Self Limited: Yes (As Tolerated ) Acute Coronary Syndrome Inclusion Criteria At DC or during hospital stay patient has or had the following: ACS DIAGNOSIS No Discharge Core Measures Meds if any: Prescribed or Continued at Discharge Meds if any: NOT Prescribed or Continued at Discharge Congestive Heart Failure Inclusion Criteria At DC or during hospital stay patient has or had the following: CHF DIAGNOSIS No Discharge Core Measures Meds if any: Prescribed or Continued at Discharge Meds if any: NOT Prescribed or Continued at Discharge Cerebrovascular accident Inclusion Criteria At DC or during hospital stay patient has or had the following: CVA/TIA Diagnosis No Discharge Core Measures Meds if any: Prescribed or Continued at Discharge Meds if any: NOT Prescribed or Continued at Discharge Venous thromboembolism Inclusion Criteria VTE Diagnosis No VTE Type NONE VTE Confirmed by (Test) NONE Discharge Core Measures - Per Current guidelines, there needs to be overlap - treatment for the first 5 days of Warfarin therapy. - If discharged on Warfarin prior to 5 days of - overlap therapy, the patient will need to be - assessed for post discharge needs including - *Post discharge parental anticoagulation - *Warfarin and/or parental anticoagulation education - *Follow up date to check INR post discharge At least 5 days overlap therapy as Inpatient No Meds if any: Prescribed or Continued at Discharge Note: Overlap Therapy is Warfarin and Anticoagulant Meds if any: NOT Prescribed or Continued at Discharge
--- NOTE | 2016-11-03 11:47 | NUR ---
@[id number]-THIS RN ASSUMED CARE OF PT. PT ALERT AND ORIENTED, CALM AND COOP. DROWSY AT TIMES. STATES SHE IS COMFORTABLE AT THIS TIME EXCEPT FOR C/O HEADACHE. PT ALREADY RECIEVED TYELENOL. ICE PACK APPLIED TO BACK OF NECK AT THIS TIME. PT CONT ON RA, LUNGS CLEAR. REMAINS GM HOLD IN ICU AT THIS TIME. BP STABLE. C3 DIET PROVIDED. SKIN INTACT. EDEMA TO BLE. NS INFUSING AT 125ML/HR. VSS. CONT TO MONITOR, CALL HALL WITHIN REACH.
[2016-11-03 16:00] VITALS: BP 110/54
--- NOTE | 2016-11-03 18:21 | NUR ---
PT ARRIVED TO FLOOR AT THIS TIME FROM ICU. A/O X 3. 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 LIDODERM TO BACK. SKIN INTACT. BSC IN PLACE. ORIENTED TO ROOM AND CALL HALL. VSS. DENIES PAIN. SAFETY PRECAUTIONS MAINTAINED.
[2016-11-03 18:26] VITALS: BP 120/56
[2016-11-03 22:19] VITALS: BP 142/80
--- NOTE | 2016-11-03 22:50 | NUR ---
PT C/O NAUSEA AT THIS TIME, IV ZOFRAN ADMINISTERED STATES LBM 11/01 BUT STATES SHE FEELS THOUGH SHE MAY NEED TO HAVE A BM AND THAT MAY BE CONTRIBUTING TO THE NAUSEA. +BS X 4, + FLATUS. TOLERATING PO FLUIDS AND FOOD. CONT TO STATE HEADACHE, CALL PLACED TO WELDER EXPLOSION PT STATING THAT IV TORADOL IN ICU WORKED WELL FOR HER HEADACHE AND WISHES TO RECEIVE THIS MED AGAIN. ORAL TEMP 99.8, WILL CONTINUE TO MONITOR.
--- NOTE | 2016-11-04 06:14 | PN- Housestaff ---
See Addendum Subjective Follow-up For: Right Flank Pain Subjective: Ms. Mckeon was seen and examined this morning. Resting comfortably on chair beside her bed. Patient states that she feels remarkably better compared to the last 48 hours. She endorses a mild headache. Headache is rated a 4-10 in severity. Frontal and bilateral in nature. Denies any vision abnormalities. Patient states she does have a history of headaches owing to occasional migraines. She states that overnight she had mild episode of nausea which has responded to pain medications. Has not been using CPAP overnight. She denies any fever, chills, nausea, vomiting. Review of Systems Constitutional: Reports: see HPI. Objective Last 24 Hrs of Vital Signs/I&O Vital Signs Date Time Temp Pulse Resp B/P B/P Pulse O2 O2 Flow FiO2 Mean Ox Delivery Rate 11/04 0625 99.3 108 22 150/72 91 Room Air 11/03 2219 99.8 94 20 142/80 92 Room Air 11/03 1826 98.6 93 20 120/56 94 Room Air 11/03 1817 93 Room Air Room Air 11/03 1600 100.6 89 16 110/54 94 Room Air 11/03 0829 95 Room Air Room Air 11/03 0809 94 Room Air 11/03 0800 99.1 107 20 132/72 92 Room Air Intake & Output 11/04 0800 11/04 0000 11/03 1600 Intake Total 850 1560 Output Total 500 800 Balance 350 760 Intake, IV 600 1000 Intake, Oral 250 560 Number 0 Bowel Movements Output, Stool 0 Output, Urine 500 800 Physical Exam General Appearance: Alert, Oriented X3, Cooperative Skin Temp/Moisture Exam: Warm/Dry Cardiovascular: Regular Rate, Normal S1, Normal S2 Lungs: Clear to Auscultation Abdomen: Normal Bowel Sounds, Soft, No Tenderness Neurological: Normal Speech Extremities: No Clubbing, No Cyanosis, Edema, Generalized. R>L Vascular: Normal Pulses Current Medications: Current Medications Sig/Adam Start time Last Medication Dose Route Stop Time Status Admin Acetaminophen 650 MG .STK-MED ONE 11/03 1803 DC PO 11/03 1804 Acetaminophen 650 MG .STK-MED ONE 11/03 1059 DC PO 11/03 1100 Acetaminophen 650 MG Q6P PRN 11/02 0215 AC 11/03 PO 1803 Albuterol Sulfate 3 ML Q4P PRN 11/02 0930 AC 11/02 INH 2028 Albuterol Sulfate 2 PUF Q4P PRN 11/02 0930 AC 11/04 INH 0455 Amitriptyline HCl 75 MG AT BEDTIME 11/02 2200 AC 11/03 PO 2133 Budesonide/ 2 PUF BID 11/02 1000 AC 11/03 Formoterol Fumarate INH 2135 Ciprofloxacin 750 MG BID 11/03 1000 AC 11/03 PO 11/07 0959 2134 Enoxaparin Sodium 40 MG DAILY 11/02 1000 AC 11/03 SC 1049 Hydromorphone HCl 1 MG Q6P PRN 11/02 0215 AC 11/04 IV 0445 Ibuprofen 400 MG .STK-MED ONE 11/03 2132 DC PO 11/03 213 Ibuprofen 600 MG ONCE ONE 11/030 DC PO 11/03 213 Insulin Aspart 0 TIDAC/HS 11/02 0800 AC 11/03 SC 2133 Insulin Detemir 40 UNITS BID 11/03 2200 AC 11/03 SC 2133 Insulin Detemir 36 UNITS BID 11/02 1000 DC 11/03 SC 1048 Ketorolac 30 MG ONCE ONE 11/03 2300 DC 11/03 Tromethamine IV 11/03 2301 2257 Ketorolac 30 MG ONCE ONE 11/03 1445 DC 11/03 Tromethamine IV 11/03 1446 1501 Lidocaine 1 PAT Q24 11/03 1000 AC 11/03 EXT 1050 Meropenem 1 GM Q8 11/02 2200 DC 11/03 IV 0549 Nicotine 14 MG DAILY 11/02 1000 AC 11/03 TOP 1049 Ondansetron HCl 4 MG .STK-MED ONE 11/03 2249 DC IM 11/03 2250 Ondansetron HCl 4 MG .STK-MED ONE 11/03 0858 DC IM 11/03 0859 Ondansetron HCl 4 MG Q6P PRN 11/02 0215 AC 11/04 IV 0451 Oxycodone HCl 10 MG .STK-MED ONE 11/03 1707 DC PO 11/03 1708 Oxycodone/ 1 TAB Q6P PRN 11/02 0215 AC 11/02 Acetaminophen PO 2021 Polyethylene Glycol 17 GM AT BEDTIME 11/02 2200 AC 11/03 PO 2133 Senna/Docusate Sodium 2 TAB AT BEDTIME 11/02 2200 AC 11/03 PO 2132 Sodium Chloride 1,000 ML Q10H 11/02 0500 AC 11/04 IV 0054 Trimethobenzamide HCl 200 MG TID PRN 11/02 1200 AC 11/02 IM 1221 Last 24 Hrs of Lab/Scar Results Last 24 Hrs of Labs/Mics: Laboratory Tests 11/04/16 0630: Sodium Pending, Potassium Pending, Chloride Pending, Carbon Dioxide Pending, Anion Gap Pending, BUN Pending, Creatinine Pending, BUN/Creatinine Ratio Pending , CBC w Diff Pending, WBC Pending, RBC Pending, Hgb Pending, Hct Pending, MCV Pending, MCH Pending, RDW Pending, Plt Count Pending, MPV Pending, PUBS MCHC Pending Assessment/Plan Assessment: Ms. Erickson is 51 year old female with past medical history significant for diabetes type 2, active smoker, COPD, hypertension, hyperlipidemia, obstructive sleep apnea on CPAP, migraine who was recently discharged on 10/20/16 after was treated for sepsis of urologic origin. Patient presented to the ED again complaining of right flank and lower back pain associated with fever and chills, she was diagnosed with pyelonephritis and was admitted to general med floor. Patient developed tachycardia and plan hypotension for which she was transferred to ICU for close monitoring. She has subsequently been transferred back to for additional Care and management. #Sepsis of urologic origin * Stable this a.m. * Urine cultures pansensitive with intermittent resistant to ampicillin * Continue ciprofloxacin (750 mg BID) to finish a course of 14 days #Diabetes mellitus * Accu-Chek before meals and at bedtime * Continue NovoLog SS. [phone] * She is tolerating diet well continue levemir to 40 twice a day #History of COPD and SEDA on CPAP * Continue home nebs albuterol and Symbicort * Continue CPAP Use [facility]. * Due to long standing history of SEDA and COPD, patient may benefit from Echo as an outpatient to assess pulmonary HTN. Code full Diet consistent carbohydrate 3 DVT prophylaxis Lovenox Problem List: 1. UTI (urinary tract infection) 2. Pyelonephritis 3. Sepsis 4. Abdominal pain 5. Headache Pain Ratin Pain Location: HEAD Pain Goal: Remain pain free Pain Plan: Amitriptyline (for head) Toradol Tomorrow's Labs & Rationales: No Labs
[2016-11-04 06:25] VITALS: BP 150/72
--- NOTE | 2016-11-04 07:45 | PN- Diabetes ---
Assessment/Plan Assessment: The patient is out of the intensive care. She is much brighter this morning. She feels better. Her insulin was increased yesterday. Her blood sugars were good during the day but got hired by 10 PM. The patient states her children brought her pretzels and she ate a bag of pretzels which is very high in carbohydrate during the evening. Patient has evidence of Escherichia coli in the urine and blood. She was treated in the beginning of this month for sepsis with urological origin with Cipro. She is back on Cipro now. Plan: Suggest continue the present insulin. Try to avoid having the family bring her high carbohydrate snacks such as pretzels. Continue antibiotics as per Joao Martinez MD. Subjective Subjective: Feels improved Review of Systems Constitutional: Denies: chills, fever. Cardiovascular: Denies: chest pain. Respiratory: Reports: short of breath. Gastrointestinal: Denies: nausea, vomiting. Objective Last 24 Hrs of Vital Signs/I&O Vital Signs Date Time Temp Pulse Resp B/P B/P Pulse O2 O2 Flow FiO2 Mean Ox Delivery Rate 11/04 0625 99.3 108 22 150/72 91 Room Air 11/03 2219 99.8 94 20 142/80 92 Room Air 11/03 1826 98.6 93 20 120/56 94 Room Air 11/03 1817 93 Room Air Room Air 11/03 1600 100.6 89 16 110/54 94 Room Air 11/03 0829 95 Room Air Room Air 11/03 0809 94 Room Air 11/03 0800 99.1 107 20 132/72 92 Room Air Intake & Output 11/04 0800 11/04 0000 11/03 1600 Intake Total 850 1560 Output Total 500 800 Balance 350 760 Intake, IV 600 1000 Intake, Oral 250 560 Number 0 Bowel Movements Output, Stool 0 Output, Urine 500 800 Vital Signs Date Time Temp Pulse Resp B/P B/P Pulse O2 O2 Flow FiO2 Mean Ox Delivery Rate 11/04 0625 99.3 108 22 150/72 91 Room Air 11/039 99.8 94 20 142/80 92 Room Air 11/03 1826 98.6 93 20 120/56 94 Room Air 11/03 1817 93 Room Air Room Air 11/03 1600 100.6 89 16 110/54 94 Room Air 11/03 0829 95 Room Air Room Air 11/03 0809 94 Room Air 11/03 0800 99.1 107 20 132/72 92 Room Air Intake & Output 11/04 0800 11/04 0000 11/03 1600 Intake Total 850 1560 Output Total 500 800 Balance 350 760 Intake, IV 600 1000 Intake, Oral 250 560 Number 0 Bowel Movements Output, Stool 0 Output, Urine 500 800 Physical Exam General Appearance: alert, awake, comfortable Head: normal appearance Neck: normal inspection Respiratory: normal breath sounds Cardiovascular: regular rate/rhythm Abdomen: normal bowel sounds Extremities: normal inspection Current Medications: Current Medications Sig/Adam Start time Last Medication Dose Route Stop Time Status Admin Acetaminophen 650 MG .STK-MED ONE 11/03 1803 DC PO 11/03 1804 Acetaminophen 650 MG .STK-MED ONE 11/03 1059 DC PO 11/03 1100 Acetaminophen 650 MG Q6P PRN 11/02 0215 AC 11/03 PO 1803 Albuterol Sulfate 3 ML Q4P PRN 11/02 0930 AC 11/02 INH 2028 Albuterol Sulfate 2 PUF Q4P PRN 11/02 0930 AC 11/04 INH 0455 Amitriptyline HCl 75 MG AT BEDTIME 11/02 2200 AC 11/03 PO 2133 Budesonide/ 2 PUF BID 11/02 1000 AC 11/03 Formoterol Fumarate INH 2135 Ciprofloxacin 750 MG BID 11/03 1000 AC 11/03 PO 11/07 0959 2134 Enoxaparin Sodium 40 MG DAILY 11/02 1000 AC 11/03 SC 1049 Hydromorphone HCl 1 MG Q6P PRN 11/02 0215 AC 11/04 IV 0445 Ibuprofen 400 MG .STK-MED ONE 11/03 2133 DC PO 11/03 213 Ibuprofen 600 MG ONCE ONE 11/03 2130 DC PO 11/03 213 Insulin Aspart 0 TIDAC/HS 11/02 0800 AC 11/03 SC 2133 Insulin Detemir 40 UNITS BID 11/03 2200 AC 11/03 SC 2133 Insulin Detemir 36 UNITS BID 11/02 1000 DC 11/03 SC 1048 Ketorolac 30 MG ONCE ONE 11/03 2300 DC 11/03 Tromethamine IV 11/03 2301 2257 Ketorolac 30 MG ONCE ONE 11/03 1445 DC 11/03 Tromethamine IV 11/03 1446 1501 Lidocaine 1 PAT Q24 11/03 1000 AC 11/03 EXT 1050 Meropenem 1 GM Q8 11/02 2200 DC 11/03 IV 0549 Nicotine 14 MG DAILY 11/02 1000 AC 11/03 TOP 1049 Ondansetron HCl 4 MG .STK-MED ONE 11/03 2249 DC IM 11/03 2250 Ondansetron HCl 4 MG .STK-MED ONE 11/03 0858 DC IM 11/03 0859 Ondansetron HCl 4 MG Q6P PRN 11/02 0215 AC 11/04 IV 0451 Oxycodone HCl 10 MG .STK-MED ONE 11/03 1707 DC PO 11/03 1708 Oxycodone/ 1 TAB Q6P PRN 11/02 0215 AC 11/02 Acetaminophen PO 2022 Polyethylene Glycol 17 GM AT BEDTIME 11/02 2200 AC 11/03 PO 2133 Senna/Docusate Sodium 2 TAB AT BEDTIME 11/02 2200 AC 11/03 PO 2132 Sodium Chloride 1,000 ML Q10H 11/02 0500 AC 11/04 IV 0054 Trimethobenzamide HCl 200 MG TID PRN 11/02 1200 AC 11/02 IM 1221 Findings Pertinent Lab/Scar Results: Laboratory Tests 11/04 0630 Chemistry Sodium Pending Potassium Pending Chloride Pending Carbon Dioxide Pending Anion Gap Pending BUN Pending Creatinine Pending BUN/Creatinine Ratio Pending Hematology CBC w Diff Pending WBC Pending RBC Pending Hgb Pending Hct Pending MCV Pending MCH Pending RDW Pending Plt Count Pending MPV Pending PUBS MCHC Pending
[2016-11-04 07:55] LABS: ABSOLUTE BASOPHIL COUNT 0 /CUMM (0.0-0.2); ABSOLUTE EOSINOPHIL COUNT 0.1 /CUMM (0.0-0.7); ABSOLUTE GRANULOCYTE CT 7.9 /CUMM (1.4-6.5); ABSOLUTE LYMPH COUNT 0.9 /CUMM (1.2-3.4); ABSOLUTE MONOCYTE COUNT 0.4 /CUMM (0.10-0.60); BASOPHIL % 0.2 % (0.0-2.0); EOSINOPHIL % 0.8 % (0-5); GRANULOCYTE % 85.1 % (42.2-75.2); MEAN CORPUSCULAR HGB 30.7 PG (27.0-31.0); MEAN CORPUSCULAR HGB CONC 33.5 G/DL (33.0-37.0); MEAN CORPUSCULAR VOLUME 91.6 FL (81.0-99.0); MEAN PLATELET VOLUME 10.8 FL (7.4-10.4); RBC DISTRIBUTION WIDTH 15.6 % (11.5-14.5)
[2016-11-04 09:39] LABS: WHITE BLOOD CELL COUNT 9.3 /CUMM (4.8-10.8)
[2016-11-04 09:42] LABS: PLATELET COUNT 132 /CUMM (130-400); RED BLOOD CELL CT 3.06 /CUMM (4.20-5.40)
--- NOTE | 2016-11-04 14:10 | Discharge Summary ---
Visit Information Visit Dates Admission Date: 11/02/16 Discharge Date: 11/05/2016 Hospital Course Course Attending Physician: Dr Lim Primary Care Physician: PEDRO PABLO VALENZUELA,[facility] Course: Ms. Erickson is 51 year old female with past medical history significant for diabetes type 2, active smoker, COPD, hypertension, hyperlipidemia, obstructive sleep apnea on CPAP, migraine who was recently discharged on 10/20/16 after was treated for sepsis of urologic origin. Patient presented to the ED again complaining of right flank and lower back pain associated with fever and chills, she was diagnosed with pyelonephritis and was initially admitted to general med floor. Vital signs at the time of admission: temperature 101.7, heart rate 114, blood pressure 179/71, RR 22 saturating 98% on room air WBC 13.3, H&H 11.9/36, platelet 234, sodium 134, potassium 4.4, BUN/creatinine 23/0.8, sugar 287, lactic acid 1.9, AST 48, ALT 73, alkaline phosphatase 56, UA positive for nitrate, leukocyte esterase. The following is a summary of the care she received under us. #Sepsis of urologic origin The patient was initially admitted to general medicine. On the morning of day 2 of admission a rapid response was called on the patient owing to increased temperature and being tachycardic. A single dose of meropenem was given. Patient was subsequently transferred to the intensive care unit for close monitoring. An ID consultation was also obtained. On day 3 of admission the patient was discontinued and meropenem and started on ciprofloxacin 750 mg every 12 hours. She was discharged home on this medication for a total 14 days of coverage. #Diabetes mellitus While the patient was admitted she was maintained on NovoLog sliding scale. She was also started on Levemir which was uptitrated to 40 units per day. Her blood sugars were well controlled. On the day of discharge we recomended that the patient can continue her home anti-diabetic medication. She was advised to follow up with her field service consultant as an outpatient. #History of COPD and SEDA on CPAP The time of admission the patient was continued on nebulizer treatments. She was continued on albuterol and Symbicort We encouraged the use of CPAP overnight, although the patient did intermittently mention her lack of a difference. Patient might be considered for echocardiogram as outpatient, to assess pulmonary hypertension. Patient was maintained on a consistent carbohydrate 3 diet. Allergies: Coded Allergies: cephalexin (From KEFLEX) (THROAT CLOSES AND SWELLS 10/14/16) clindamycin (HIVES 10/14/16) Pertinent Lab Results: Blood and urine cultures positive for Escherichia coli. Urine Culture Sensitive to Ciprofloxacin EXAM TYPE: CAT - CT ABD & PELVIS W/O IV CONTRAS; CT CHEST WO IV CONTRAST EXAM: NONCONTRAST CT OF THE CHEST; NONCONTRAST CT OF THE ABDOMEN AND PELVIS INDICATION: Right-sided pain, chills COMPARISON: 10/14/2016 TECHNIQUE: No IV contrast was utilized. Multidetector helical imaging was performed through the chest, abdomen, and pelvis. Coronal and sagittal reformatted images were created at the technologist workstation. DLP: 1545.51 mGy-cm FINDINGS: Chest: The lungs are clear bilaterally without evidence of consolidation. There is a minor fissural nodule measuring 4 mm on image 232/1008, suggestive of a lymph node. No pneumothorax or pleural effusions. The visualized thyroid gland is unremarkable. There are subcentimeter mediastinal lymph nodes within the range of normal variation. Cardiac size is within normal limits. There is a small pericardial effusion. Coronary artery calcifications are present. No axillary lymphadenopathy is present.. Abdomen/Pelvis: Hepatomegaly is again noted. No intrahepatic biliary ductal dilatation is seen. There is a subcentimeter low-density lesion in the liver on image 48/126, too small to characterize. Patient is status post cholecystectomy. The unenhanced spleen, pancreas, and adrenal glands are within normal limits. There is nonspecific bilateral perinephric stranding. No hydronephrosis bilaterally. No renal or ureteral calculi are present. The urinary bladder is unremarkable. The uterus and adnexa are unremarkable. The small and large bowel are unremarkable without evidence of obstruction or pericolonic inflammatory change. The appendix is unremarkable. No free fluid or free air is present. The unenhanced vascular structures are unremarkable. No retroperitoneal or pelvic lymphadenopathy is seen. Degenerative changes are noted in the spine. IMPRESSION: 1. Nonspecific bilateral perinephric stranding. Pyelonephritis remains a possibility, and correlation with urinalysis is advised. 2. No regions of pulmonary consolidation. 3. Small pericardial effusion. 4. Right minor fissural lung nodule measuring 4 mm, suggestive of a lymph node. EXAM TYPE: RAD - XRY-PORTABLE CHEST XRAY EXAMINATION: XR PORTABLE CHEST CLINICAL INFORMATION: Chills. Cough. History of smoking. COMPARISON: Chest x-ray 10/15/2016. TECHNIQUE: Portable frontal view of the chest was obtained. 11:04 PM FINDINGS: Exam limited by body habitus. There is subtle haziness at the right lung base. This could be due to overlapping soft tissue density of the chest wall but patient did have a density infiltrate at the right lung base on the prior chest x-ray of 10/15/2016. Small residual infiltrate may still be present. The left lung is clear. No pleural effusion. No pulmonary vascular congestion. The cardiac and the mediastinal contours are normal. IMPRESSION: Question subtle right basilar infiltrate. Follow-up PA lateral view of chest would be helpful. EXAM TYPE: RAD - XRY-PORTABLE CHEST XRAY EXAMINATION: XR PORTABLE CHEST CLINICAL INFORMATION: Shortness of breath, fever, chills. Urinary infection. Desaturation to 84%. COMPARISON: Chest x-ray dated 11/01/2016. CT scan of the chest, abdomen and pelvis dated 11/01/2016. TECHNIQUE: Portable AP semierect view of the chest was obtained. FINDINGS: The cardiomediastinal silhouette is enlarged, likely due to projection of the film. Soft tissue prominence of the right suprahilar region again seen, also likely related to projection. Recent CT scan had shown no focal mass. There is some reticular opacity in the medial right lung base, consistent with subsegmental atelectasis. Lungs are otherwise unremarkable. No focal consolidation, effusion or pneumothorax is seen. Bony structures are unremarkable. IMPRESSION: Mild subsegmental atelectasis in medial right lung base. Disposition Summary Disposition Principal Diagnosis: Sepsis of urologic origin Additional Diagnosis: History of diabetes Discharge Disposition: home or self care Discharge Instructions General Discharge Information Code Status: Full Code Patient's Diet: Consistent Carbohydrate 3 Patient's Activity: As Tolerated Follow-Up Instructions/Appts: Please follow-up with your primary care physician within 7 days of discharge. Please inform your primary care physician of this admission to the hospital. Follow up with your field service consultant within one week. Please speak to your primary care physician about the need for a sleep study. You may also benefit from an echocardiogram to be done as an outpatient. Medications at Discharge Discharge Medications: Continue taking these medications: Dulaglutide (Trulicity) 1.5 MG/0.5 ML PEN.INJCTR 1.5 Milligram Inject into fatty tissue EVERY TUESDAY Qty = 2 Comments: Last Taken:NOT GIVEN IN HOSPITAL Time: Albuterol Sulfate (Proair Hfa) 90 MCG HFA.AER.AD 2 Puff Inhale through mouth Q6H as needed for ASTHMA Qty = 9 Comments: Last Taken:10/15/16 Time:1230 AM Tramadol HCl (Tramadol HCl) 50 MG TABLET 1 Tablet ORAL Every night Qty = 40 Comments: Last Taken:NOT GIVEN IN HOSPITAL Time: Amitriptyline HCl (Amitriptyline HCl) 75 MG TABLET 1 Tablet ORAL TAKE AT BEDTIME Qty = 30 Comments: Last Taken: 11/04/16 Time: 9 PM Budesonide/Formoterol Fumarate (Symbicort 80-4.5 Mcg Inhaler) 80 MCG-4.5 MCG/ ACTUATION HFA.AER.AD 2 Puff Inhale through mouth TWICE DAILY Qty = 10 Comments: Last Taken:11/05/16 Time:8 AM Ergocalciferol (Vitamin D2) (Vitamin D2) 50,000 UNIT CAPSULE 1 Capsule ORAL EVERY TUESDAY Qty = 12 Comments: Last Taken:NOT GIVEN IN HOSPITAL Time: Polyethylene Glycol 3350 (Miralax) 17 GRAM/DOSE POWDER 17 Gram ORAL DAILY as needed for CONSTIPATION Qty = 15 Comments: Last Taken:11/04/16 Time: 9 PM Sennosides/Docusate Sodium (Senna-Time S Tablet) 8.6 MG-50 MG TABLET 187 Milligram ORAL AT BEDTIME as needed for CONSTIPATION Qty = 15 Comments: Last Taken:11/04/16 Time:9 PM Insulin Lispro (Humalog Kwikpen U-100) 100 UNIT/ML INSULN.PEN 0 Inject into fatty tissue BEFORE MEALS AND AT BEDTIME Days = 30 Instructions: BEFORE MEALS Blood Insulin Sugar Units <80 0 81-150 6 151-200 8 201-250 10 251-300 12 301-350 14 351-400 16 >400 GIVE 18 UNITS AND CALL DOCTOR AT BEDTIME Blood Insulin Sugar Units <80 0 81-100 0 101-200 0 201-250 2 251-300 4 301-350 6 351-400 7 >400 TAKE 8 AND CALL YOUR DOCTOR Comments: Last Taken:10/18/16 Time:1630 Insulin Glargine,Hum.rec.anlog (Lantus Solostar) 100 UNIT/ML (3 ML) INSULN.PEN 40 Units Inject into fatty tissue TWICE DAILY Days = 30 Comments: Last Taken:10/18/16 Time:0830 Start taking the following new medications: Ciprofloxacin HCl (Ciprofloxacin HCl) 750 MG TABLET 1 Tablet ORAL TWICE DAILY Qty = 20 No Refills Instructions: . Comments: Last Taken:11/05/16 Time:8 AM Copies To: [facility]; ANTWAN VALENZUELA,REBECA Chao; SEEMA VALENZUELA,LA Miller; LAUREN VALENZUELA, [facility]IT[facility]arle
[2016-11-04] MEDS ORDERED: CIPROFLOXACIN750 M1 PO (14:29)
[2016-11-04 14:35] VITALS: BP 128/64
--- NOTE | 2016-11-04 16:39 | PN- Infect Dx ---
Subjective Subjective: MAXIMUM TEMPERATURE 100.6. She feels improved with no complaints at this time. Objective Last 24 Hrs of Vital Signs/I&O Vital Signs Date Time Temp Pulse Resp B/P B/P Pulse O2 O2 Flow FiO2 Mean Ox Delivery Rate 11/04 1435 97.8 91 20 128/64 93 Room Air 11/04 0625 99.3 108 22 150/72 91 Room Air 11/03 2219 99.8 94 20 142/80 92 Room Air 11/03 1826 98.6 93 20 120/56 94 Room Air 11/03 1817 93 Room Air Room Air Intake & Output 11/04 1600 11/04 0800 11/04 0000 Intake Total 1005 850 Output Total 600 500 Balance 405 350 Intake, IV 525 600 Intake, Oral 480 250 Output, Urine 600 500 Physical Exam Other Physical Findings: She appears comfortable in no acute distress Lungs are clear Heart regular rhythm with no murmur Back no CVA tenderness Results Last 24 Hours of Lab Results: Laboratory Tests 11/04 0630 Chemistry Sodium (137 - 145 mmol/L) 134 L Potassium (3.5 - 5.1 mmol/L) 4.2 Chloride (98 - 107 mmol/L) 104 Carbon Dioxide (22 - 30 mmol/L) 21 L Anion Gap (5 - 16) 8 BUN (7 - 17 mg/dL) 20 H Creatinine (0.5 - 1.0 mg/dL) 0.8 Estimated GFR (>60 ml/min) > 60 BUN/Creatinine Ratio (7 - 25 %) 25.0 Hematology CBC w Diff NO MAN DIFF REQ WBC (4.8 - 10.8 /CUMM) 9.3 RBC (4.20 - 5.40 /CUMM) 3.06 L Hgb (12.0 - 16.0 G/DL) 9.4 L Hct (37 - 47 %) 28.0 L MCV (81.0 - 99.0 FL) 91.6 MCH (27.0 - 31.0 PG) 30.7 RDW (11.5 - 14.5 %) 15.6 H Plt Count (130 - 400 /CUMM) 132 MPV (7.4 - 10.4 FL) 10.8 H Gran % (42.2 - 75.2 %) 85.1 H Lymphocytes % (20.5 - 51.1 %) 9.4 L Monocytes % (1.7 - 9.3 %) 4.5 Eosinophils % (0 - 5 %) 0.8 Basophils % (0.0 - 2.0 %) 0.2 Absolute Granulocytes (1.4 - 6.5 /CUMM) 7.9 H Absolute Lymphocytes (1.2 - 3.4 /CUMM) 0.9 L Absolute Monocytes (0.10 - 0.60 /CUMM) 0.4 Absolute Eosinophils (0.0 - 0.7 /CUMM) 0.1 Absolute Basophils (0.0 - 0.2 /CUMM) 0 PUBS MCHC (33.0 - 37.0 G/DL) 33.5 Last 24 Hours of Scar Results: Blood cultures November 01 positive for Escherichia coli intermediate to Ampicillin Blood cultures November 02 negative Urine culture November 02 negative Assessment/Plan Impression: Overall improvement with temperatures and white blood cell count continuing to decrease now on Ciprofloxacin Day 3 of treatment for Escherichia coli sepsis of urologic origin. Suggestion: 1. Continue Ciprofloxacin to complete a 14 day course
[2016-11-04 22:23] VITALS: BP 118/62
[2016-11-05 06:06] VITALS: BP 140/70
--- NOTE | 2016-11-05 06:22 | PN- Housestaff ---
DARIAN VALENZUELA,[facility] 11/05/16 06: Subjective Follow-up For: UTI Subjective: Ms Bullock was seen and examined this morning. She is resting comfortably on the chair beside the bed. Patient prefers not to sleep in a bed owing to be uncomfortable. Overnight she states she continues to feel better. She denies any fever, chills, nausea, vomiting. Endorses a mild headache for out of 10 in severity. States that she occasionally has headaches. Has been tolerating by mouth intake well. Denies any urinary frequency or dysuria. She currently has been tolerating by mouth intake well. Review of Systems Constitutional: Reports: see HPI. Objective Last 24 Hrs of Vital Signs/I&O Vital Signs Date Time Temp Pulse Resp B/P B/P Pulse O2 O2 Flow FiO2 Mean Ox Delivery Rate 11/05 0606 99.1 99 20 140/70 93 Room Air 11/04 2223 98.3 92 20 118/62 94 Room Air 11/04 1435 97.8 91 20 128/64 93 Room Air Intake & Output 11/05 0800 11/05 0000 11/04 1600 Intake Total 1005 1005 Output Total 600 Balance 1005 405 Intake, IV 525 525 Intake, Oral 480 480 Number 2 Bowel Movements Output, Urine 600 Physical Exam General Appearance: Alert, Oriented X3, Cooperative Skin Temp/Moisture Exam: Warm/Dry HEENT: Mucous Membr. moist/pink, Right Sided Nose Lesion Cardiovascular: Regular Rate, Normal S1, Normal S2 Lungs: Clear to Auscultation Abdomen: Normal Bowel Sounds, Soft, No Tenderness Neurological: Normal Speech Extremities: No Edema Vascular: Normal Pulses Current Medications: Current Medications Sig/Adam Start time Last Medication Dose Route Stop Time Status Admin Acetaminophen 650 MG .STK-MED ONE 11/04 1213 DC PO 11/04 1214 Acetaminophen 650 MG Q6P PRN 11/02 0215 AC 11/05 PO 0614 Albuterol Sulfate 3 ML Q4P PRN 11/02 0930 AC 11/02 INH 2027 Albuterol Sulfate 2 PUF Q4P PRN 11/02 0930 AC 11/05 INH 0355 Amitriptyline HCl 75 MG AT BEDTIME 11/02 2200 AC 11/04 PO 2121 Bisacodyl 5 MG ONE PRN 11/04 0800 AC 11/04 PO 0933 Budesonide/ 2 PUF BID 11/02 1000 AC 11/04 Formoterol Fumarate INH 2120 Ciprofloxacin 750 MG BID 11/03 1000 AC 11/04 PO 11/07 0959 2122 Enoxaparin Sodium 40 MG DAILY 11/02 1000 AC 11/04 SC 0933 Hydromorphone HCl 1 MG Q6P PRN 11/02 0215 AC 11/04 IV 0445 Insulin Aspart 0 TIDAC/HS 11/02 0800 AC 11/04 SC 1750 Insulin Detemir 40 UNITS BID 11/03 2200 AC 11/04 SC 2120 Lidocaine 1 PAT Q24 11/03 1000 AC 11/04 EXT 0933 Nicotine 14 MG DAILY 11/02 1000 AC 11/04 TOP 0933 Ondansetron HCl 4 MG Q6P PRN 11/02 0215 AC 11/04 IV 0451 Oxycodone/ 1 TAB Q6P PRN 11/02 0215 AC 11/04 Acetaminophen PO 1753 Polyethylene Glycol 17 GM AT BEDTIME 11/02 2200 AC 11/04 PO 2120 Senna/Docusate Sodium 2 TAB AT BEDTIME 11/02 2200 AC 11/04 PO 2121 Sodium Chloride 1,000 ML Q10H 11/02 0500 AC 11/05 IV 0357 Trimethobenzamide HCl 200 MG TID PRN 11/02 1200 AC 11/02 IM 1221 Assessment/Plan Assessment: Ms. Erickson is 51 year old female with past medical history significant for diabetes type 2, active smoker, COPD, hypertension, hyperlipidemia, obstructive sleep apnea on CPAP, migraine who was recently discharged on 10/20/16 after was treated for sepsis of urologic origin. Patient presented to the ED again complaining of right flank and lower back pain associated with fever and chills, she was diagnosed with pyelonephritis and was admitted to general med floor. Patient developed tachycardia and plan hypotension for which she was transferred to ICU for close monitoring. She has subsequently been transferred back to for additional Care and management. #Sepsis of urologic origin * Stable this a.m. * Urine cultures pansensitive with intermittent resistant to ampicillin * Continue ciprofloxacin (750 mg BID) to finish a course of 14 days #Diabetes mellitus * Accu-Chek before meals and at bedtime * Continue NovoLog SS. [id number] * She is tolerating diet well continue levemir to 40 twice a day #History of COPD and SEDA on CPAP * Continue home nebs albuterol and Symbicort * Continue CPAP Use [employer]. * Due to long standing history of SEDA and COPD, patient may benefit from Echo as an outpatient to assess pulmonary HTN. Code full Diet consistent carbohydrate 3 DVT prophylaxis Lovenox Problem List: 1. UTI (urinary tract infection) 2. Acute hypoxemic respiratory failure 3. Headache 4. Pyelonephritis 5. SEDA on CPAP 6. Sepsis Pain Ratin Pain Location: Right Lower Quadrant pain Pain Goal: Remain pain free Pain Plan: Tylenol PRN Tomorrow's Labs & Rationales: No Labs PARVEEN ARRIAGA MD 11/05/16 1111: Attending MD Review Statement Attending Statement Attending MD Statement: examined this patient, discuss w/resident/PA/NUCLEAR INSTRUCTOR, agreed w/resident/PA/NUCLEAR INSTRUCTOR, reviewed EMR data (avail) Attending Assessment/Plan: Patient is doing well, no complaints, afebrile. Will discharge home today on Cipro to complete 14 day course. Follow up with PCP, continue all home medications.
--- NOTE | 2016-11-05 07:35 | PN- Diabetes ---
Assessment/Plan Assessment: The patient is out of the intensive care. She is much brighter this morning. She feels better. Blood sugars were good yesterday and this morning her sugar was 159. Patient has evidence of Escherichia coli in the urine and blood. She was treated in the beginning of this month for sepsis with urological origin with Cipro. She is back on Cipro now. Plan: Suggested if the patient goes home she could go home on her present insulin regimen. Since she has Lantus at home we can substitute Lantus unit to unit for the present dose of Levemir. Since she has Humalog at home we can substitute Humalog for the present dose of NovoLog. The patient can also resume Trulicity. Subjective Subjective: Feels improved Review of Systems Constitutional: Denies: chills, fever. Cardiovascular: Denies: chest pain. Respiratory: Denies: short of breath. Gastrointestinal: Denies: nausea, vomiting. Skin: Reports: no symptoms. Objective Last 24 Hrs of Vital Signs/I&O Vital Signs Date Time Temp Pulse Resp B/P B/P Pulse O2 O2 Flow FiO2 Mean Ox Delivery Rate 11/05 0606 99.1 99 20 140/70 93 Room Air 11/04 2223 98.3 92 20 118/62 94 Room Air 11/04 1435 97.8 91 20 128/64 93 Room Air Intake & Output 11/05 0800 11/05 0000 11/04 1600 Intake Total 1005 1005 Output Total 600 Balance 1005 405 Intake, IV 525 525 Intake, Oral 480 480 Number 2 Bowel Movements Output, Urine 600 Vital Signs Date Time Temp Pulse Resp B/P B/P Pulse O2 O2 Flow FiO2 Mean Ox Delivery Rate 11/05 0606 99.1 99 20 140/70 93 Room Air 11/04 2223 98.3 92 20 118/62 94 Room Air 11/04 1435 97.8 91 20 128/64 93 Room Air Intake & Output 11/05 0800 11/05 0000 11/04 1600 Intake Total 1005 1005 Output Total 600 Balance 1005 405 Intake, IV 525 525 Intake, Oral 480 480 Number 2 Bowel Movements Output, Urine 600 Physical Exam General Appearance: alert, awake Neck: normal inspection Respiratory: normal breath sounds Cardiovascular: regular rate/rhythm Abdomen: normal bowel sounds, soft Current Medications: Current Medications Sig/Adam Start time Last Medication Dose Route Stop Time Status Admin Acetaminophen 650 MG .STK-MED ONE 11/04 1213 DC PO 11/04 1214 Acetaminophen 650 MG Q6P PRN 11/02 0215 AC 11/05 PO 0614 Albuterol Sulfate 3 ML Q4P PRN 11/02 0930 AC 11/02 INH 2028 Albuterol Sulfate 2 PUF Q4P PRN 11/02 0930 AC 11/05 INH 0355 Amitriptyline HCl 75 MG AT BEDTIME 11/02 2200 AC 11/04 PO 2121 Bisacodyl 5 MG ONE PRN 11/04 0800 AC 11/04 PO 0933 Budesonide/ 2 PUF BID 11/02 1000 AC 11/04 Formoterol Fumarate INH 212 Ciprofloxacin 750 MG BID 11/03 1000 AC 11/04 PO 11/07 0959 2122 Enoxaparin Sodium 40 MG DAILY 11/02 1000 AC 11/04 SC 0933 Hydromorphone HCl 1 MG Q6P PRN 11/02 0215 AC 11/04 IV 0445 Insulin Aspart 0 TIDAC/HS 11/02 0800 AC 11/04 SC 1750 Insulin Detemir 40 UNITS BID 11/03 2200 AC 11/04 SC 2120 Lidocaine 1 PAT Q24 11/03 1000 AC 11/04 EXT 0933 Nicotine 14 MG DAILY 11/02 1000 AC 11/04 TOP 0933 Ondansetron HCl 4 MG Q6P PRN 11/02 0215 AC 11/04 IV 0451 Oxycodone/ 1 TAB Q6P PRN 11/02 0215 AC 11/04 Acetaminophen PO 1753 Polyethylene Glycol 17 GM AT BEDTIME 11/02 2200 AC 11/04 PO 2120 Senna/Docusate Sodium 2 TAB AT BEDTIME 11/02 2200 AC 11/04 PO 2121 Sodium Chloride 1,000 ML Q10H 11/02 0500 AC 11/05 IV 0357 Trimethobenzamide HCl 200 MG TID PRN 11/02 1200 AC 11/02 IM 1221
[2016-11-05] MEDS ORDERED: LEVEMIR FL100 UNIT/1 SC ×2 (08:26→10:36)
[2016-11-05] MEDS ORDERED: NOVOLOG FL100 UNIT/1 SC ×3 (08:44→10:39)
[2016-11-05] MEDS ORDERED: CIPROFLOXACIN750 M1 PO (10:36)
== END 2016-11-05 14:30 | DRG 871 ==
LOC: ERH 22:26 → 2NA 11-02 01:20 → CRI 11-02 01:20 → ERHI 11-02 01:20 → 2NA 11-02 02:31 → CRI 11-02 12:32 → 2NA 11-03 18:00 → ENPENDDIS 11-05 11:25 → 2NA 11-05 14:30
PROVIDERS: Emergency Medicine; Student in an Organized Health Care Education/Training Program; ADMIT Student in an Organized Health Care Education/Training Program
DX: A41.51 Sepsis due to Escherichia coli [E. coli] (principal); G93.41 Metabolic encephalopathy; Z68.41 Body mass index [BMI] 40.0-44.9, adult; E11.65 Type 2 diabetes mellitus with hyperglycemia; E66.01 Morbid (severe) obesity due to excess calories; I31.3 Pericardial effusion (noninflammatory); N39.0 Urinary tract infection, site not specified; N10 Acute pyelonephritis; I10 Essential (primary) hypertension; J32.9 Chronic sinusitis, unspecified; E78.5 Hyperlipidemia, unspecified; G47.33 Obstructive sleep apnea (adult) (pediatric); F17.210 Nicotine dependence, cigarettes, uncomplicated; J44.9 Chronic obstructive pulmonary disease, unspecified; Z79.4 Long term (current) use of insulin; R09.02 Hypoxemia; G43.909 Migraine, unspecified, not intractable, without status migrainosus; M19.90 Unspecified osteoarthritis, unspecified site; K58.9 Irritable bowel syndrome, unspecified; R74.0 Nonspecific elevation of levels of transaminase and lactic acid dehydrogenase [LDH]; R51 Headache; R65.20 Severe sepsis without septic shock
CPT/HCPCS: 2NASP; CCU; 74176; 81001; 82436; 87040; 87086; 94799; 96374; 96375; J0131; J1650; J1815; J1885; J2185; J2405; J3250; J3490; J7060

== ENCOUNTER 2018-01-18 12:45 | Emergency (ER) | payer OTHER ==
[~2018-01-18] VITALS: Ht 177.8 cm; Wt 113.4 kg
[~2018-01-18 12:45] MED LIST changes: +CIPROFLOXACIN750 M1 PO; +LEVEMIR FL100 UNIT/1 SC; +NOVOLOG FL100 UNIT/1 SC
[2018-01-18 12:50] VITALS: BP 128/71
[2018-01-18 13:23] LABS: ABSOLUTE BASOPHIL COUNT 0 /CUMM (0.0-0.2); ABSOLUTE EOSINOPHIL COUNT 0.1 /CUMM (0.0-0.7); ABSOLUTE GRANULOCYTE CT 7.4 /CUMM (1.4-6.5); ABSOLUTE LYMPH COUNT 2.1 /CUMM (1.2-3.4); ABSOLUTE MONOCYTE COUNT 0.3 /CUMM (0.10-0.60); BASOPHIL % 0 % (0.0-2.0); EOSINOPHIL % 1.1 % (0-5); GRANULOCYTE % 74.8 % (42.2-75.2); HEMATOCRIT 38.2 % (37-47); MEAN CORPUSCULAR HGB 31.1 PG (27.0-31.0); MEAN CORPUSCULAR HGB CONC 34.5 G/DL (33.0-37.0); MEAN CORPUSCULAR VOLUME 90.1 FL (81.0-99.0); MEAN PLATELET VOLUME 10.3 FL (7.4-10.4); PLATELET COUNT 203 /CUMM (130-400); RBC DISTRIBUTION WIDTH 14.4 % (11.5-14.5); RED BLOOD CELL CT 4.24 /CUMM (4.20-5.40); WHITE BLOOD CELL COUNT 9.9 /CUMM (4.8-10.8)
--- NOTE | 2018-01-18 14:19 | RADIOLOGY REPORT ---
EXAMINATION: XR CHEST CLINICAL INFORMATION: Chest pain. COMPARISON: Chest x-ray 06/04/2016. TECHNIQUE: Frontal and lateral views of the chest were obtained. FINDINGS: The lung cohen are hyperexpanded, with flattening of the hemidiaphragms and retrosternal air trapping. There is no focal consolidation. There is mild thickening of the bronchial santos. The cardiac silhouette is normal. There are no pleural effusions or pneumothorax. The central pulmonary vasculature is normal. The hilar regions appear normal. There are no acute osseous findings. There is moderate calcification of the costochondral structures. IMPRESSION: 1. The lung cohen are hyperexpanded which may be consistent with COPD. Thickening of the bronchial santos may be consistent with reactive airways disease or bronchitis.
== END 2018-01-18 17:00 | disposition admitted as inpatient to this hospital (09) ==
LOC: ERH 12:45
PROVIDERS: Physician Assistant Medical
DX: R07.9 Chest pain, unspecified (principal); R06.02 Shortness of breath
CPT/HCPCS: 71046; 93005; 93010; 99281

== ENCOUNTER 2018-02-02 12:21 | Emergency (ER) | payer OTHER ==
[~2018-02-02] VITALS: Ht 170.2 cm; Wt 113.4 kg
[2018-02-02 12:41] VITALS: BP 125/828
[2018-02-02 13:03] LABS: ABSOLUTE BASOPHIL COUNT 0 /CUMM (0.0-0.2); ABSOLUTE EOSINOPHIL COUNT 0.1 /CUMM (0.0-0.7); ABSOLUTE GRANULOCYTE CT 6.9 /CUMM (1.4-6.5); ABSOLUTE MONOCYTE COUNT 0.3 /CUMM (0.10-0.60); BASOPHIL % 0.3 % (0.0-2.0); GRANULOCYTE % 74.2 % (42.2-75.2); HEMATOCRIT 39.1 % (37-47); MEAN CORPUSCULAR HGB 30.4 PG (27.0-31.0); MEAN CORPUSCULAR HGB CONC 33.7 G/DL (33.0-37.0); MEAN CORPUSCULAR VOLUME 90.2 FL (81.0-99.0); MEAN PLATELET VOLUME 9.7 FL (7.4-10.4); PLATELET COUNT 218 /CUMM (130-400); RED BLOOD CELL CT 4.33 /CUMM (4.20-5.40); WHITE BLOOD CELL COUNT 9.4 /CUMM (4.8-10.8)
--- NOTE | 2018-02-02 18:16 | ED AMS/SEIZURE/WEAK/DIZZY ---
History of Present Illness General Chief Complaint: General Adult Stated Complaint: PT SIB WEAK AND LIGTHHEADED Source: patient Exam Limitations: no limitations Vital Signs & Intake/Output Vital Signs & Intake/Output Vital Signs Date Time Temp Pulse Resp B/P B/P Pulse O2 O2 Flow FiO2 Mean Ox Delivery Rate 02/02 1241 97.9 83 16 125/828 95 Room Air Allergies Coded Allergies: doxycycline (Severe, BLISTERS 02/02/18) cephalexin (From KEFLEX) (THROAT CLOSES AND SWELLS 10/14/16) clindamycin (HIVES 10/14/16) Reconcile Medications Albuterol Sulfate (Proair Hfa) 90 MCG HFA.AER.AD 2 PUF INH Q6H PRN ASTHMA ( Reported) Amitriptyline HCl 75 MG TABLET 1 TAB PO QHS MIGRAINES (Reported) Budesonide/Formoterol Fumarate (Symbicort 80-4.5 Mcg Inhaler) 80 MCG-4.5 MCG/ ACTUATION HFA.AER.AD 2 PUF INH BID ASTHMA (Reported) Ciprofloxacin HCl 750 MG TABLET 1 TAB PO BID Infection . Dulaglutide (Trulicity) 1.5 MG/0.5 ML PEN.INJCTR 1.5 MG SC QMON DM (Reported) Ergocalciferol (Vitamin D2) (Vitamin D2) 50,000 UNIT CAPSULE 1 CAP PO QWED SUPPLEMENT (Reported) Insulin Glargine,Hum.rec.anlog (Lantus Solostar) 100 UNIT/ML (3 ML) INSULN.PEN 40 U SC BID DM Insulin Lispro (Humalog Kwikpen U-100) 100 UNIT/ML INSULN.PEN 0 SC TIDAC/HS DM BEFORE MEALS Blood Insulin Sugar Units <80 0 81-150 6 151-200 8 201-250 10 251-300 12 301-350 14 351-400 16 >400 GIVE 18 UNITS AND CALL DOCTOR AT BEDTIME Blood Insulin Sugar Units <80 0 81-100 0 101-200 0 201-250 2 251-300 4 301-350 6 351-400 7 >400 TAKE 8 AND CALL YOUR DOCTOR Polyethylene Glycol 3350 (Miralax) 17 GRAM/DOSE POWDER 17 GM PO DAILY PRN CONSTIPATION Sennosides/Docusate Sodium (Senna-Time S Tablet) 8.6 MG-50 MG TABLET 187 MG PO AT BEDTIME PRN CONSTIPATION Tramadol HCl 50 MG TABLET 1 TAB PO QPM PAIN (Reported) Triage Note: 52 Y/O FEMALE C/O FEELING DIZZY AND LIGHTHEADED X 2-3 WEEKS. STATES SHE WAS EVAL'D ONCE IN THIS ED AND "EVERYTHING WAS FINE". CONTINUES TO "NOT FEEL WELL". PT CAME FROM [facility]; THEY CALLED AND STATE PT HAS HX ANXIETY AND HAD RECENT LOSS OF . EKG IN PROGRESS Triage Nurses Notes Reviewed? yes HPI: 52 YO WF presents with non specific dizziness, sleep and appetite disturbance, worsened since unexpectedly 2 months ago. Patient has noted intermittent palpitations during times of deep grief. Denies chest pain, SOB, fever, chills, abdominal or back pain. No HO, pedal edema or orthopnea. Past History Travel History Traveled to [place] past 21 day No Medical History Any Pertinent Medical History? see below for history Neurological: migraine EENT: allergies, sinusitis Cardiovascular: hypertension, hyperlipidemia Respiratory: asthma, obstructive sleep apnea Gastrointestinal: irritable bowel syndrome, pancreatitis Hepatic: NONE Renal: NONE Musculoskeletal: osteoarthritis Psychiatric: NONE Endocrine: diabetes Blood Disorders: NONE Cancer(s): NONE [employer] DEVELOPER/Reproductive: NONE History of MRSA: No History of VRE: No History of CDIFF: No Surgical History Surgical History: cholecystectomy, CS X 2 R KNEE SURGERY SINUS SURGERY Psychosocial History Who do you live with Friend Services at Home None What is your primary language [place] Tobacco Use: Current Daily Use Daily Tobacco Use Amount/Type: =< 4 Cigarettes daily Family History Family History, If Any: MOTHER (kidney disease). Hx Contributory? No Review of Systems Review of Systems Constitutional: Reports: see HPI, malaise, weakness. Denies: no symptoms. All Other Systems: Reviewed and Negative Physical Exam Physical Exam General Appearance: well developed/nourished, no apparent distress, alert, awake , anxious Head: atraumatic, normal appearance Eyes: Bilateral: normal appearance. Ears, Nose, Throat: normal pharynx Neck: normal inspection, supple Respiratory: normal breath sounds, chest non-tender, no respiratory distress, quiet respiration Cardiovascular: regular rate/rhythm Peripheral Pulses: 4+ tibialis posterior (R), 4+ tibialis posterior (L), 4+ dorsalis pedis (R), 4+ dorsalis pedis (L) Gastrointestinal: normal bowel sounds, soft, non-tender, no organomegaly Back: normal inspection, normal range of motion Extremities: normal range of motion Neurologic/Psych: no motor/sensory deficits, awake, depressed affect Core Measures ACS in differential dx? No CVA/TIA Diagnosis No Sepsis Present: No Sepsis Focused Exam Completed? No Progress Differential Diagnosis: arrythmia, dehydration, electrolyte imbalance, hypoglycemia, labrynthitis, post-traumatic vertigo Plan of Care: Orders Procedure Date/time Status URINALYSIS 02/02 1240 Active TROPONIN LEVEL 02/02 1240 Complete LIPASE 02/02 1240 Complete COMPREHENSIVE METABOLIC PANEL 02/02 1240 Complete CBC WITHOUT DIFFERENTIAL 02/02 1240 Complete EKG 02/02 1222 Active Laboratory Tests 02/02/18 1252: Anion Gap 10, Estimated GFR > 60, BUN/Creatinine Ratio 21.3, Glucose 163 H, Calcium 10.5 H, Total Bilirubin 0.4, AST 14, ALT 27, Alkaline Phosphatase 70, Troponin I < 0.01, Total Protein 7.2, Albumin 4.2, Globulin 3.0, Albumin/ Globulin Ratio 1.4, Lipase 107, CBC w Diff NO MAN DIFF REQ, RBC 4.33, MCV 90.2, MCH 30.4, MCHC 33.7, RDW 15.0 H, MPV 9.7, Gran % 74.2, Lymphocytes % 21.2, Monocytes % 3.3, Eosinophils % 1.0, Basophils % 0.3, Absolute Granulocytes 6.9 H, Absolute Lymphocytes 2.0, Absolute Monocytes 0.3, Absolute Eosinophils 0.1, Absolute Basophils 0 Initial ED EKG: normal axis, normal intervals, normal p-waves, normal QRS complex Comments: Patient with acute grief superimposed on anxiety disorder with normal physical exam. Discussed treatment options for acute grief with her. Departure Departure Time of Disposition: 1814 Disposition: HOME OR SELF CARE Condition: Stable Clinical Impression Primary Impression: Grief reaction Secondary Impressions: Anxiety disorder Qualifiers: Anxiety disorder type: unspecified anxiety disorder Qualified Code: F41.9 - Anxiety disorder, unspecified Dizziness Palpitations Referrals: Ferdinand Whiteside MD (PCP/Family) Departure Forms: Customer Survey General Discharge Information
== END 2018-02-02 18:50 ==
LOC: ERH 12:21
PROVIDERS: Physician Assistant Medical
DX: F43.20 Adjustment disorder, unspecified (principal); R42 Dizziness and giddiness; R53.1 Weakness; I10 Essential (primary) hypertension; E78.5 Hyperlipidemia, unspecified; E11.9 Type 2 diabetes mellitus without complications
CPT/HCPCS: 93005; 93010